=== PATIENT | male | born 1970 | race Caucasian/White ===

== ENCOUNTER 2024-02-26 13:35 | Inpatient (IN) | payer OTHER, SELFPAY ==
[2024-02-26] VITALS (11 sets, daily range): BP systolic 84–124; BP diastolic 66–82; BMI 31.4
--- NOTE | 2024-02-26 09:22 | W.PN.CARDCBS ---
Today's Communication / Plan
-
LHC
Echo if not done at [facility]
Impression / Plan
-
This is the H&P summary.
Full H&P scanned into chart.
PCP: Marli Mojica MD
CDY: Blane Stewart MD
HPI: 53 y/o white male, PMH sig for moderate ischemic cardiomyopathy after late presentation [place] (he refused care at first) and ultimately needed LAD stent (06/2022), prior RCA stenting in 2021. He has been feeling well until Sun 02/24, when he woke up
with chest pain and was intermittent throughout the day. Worse with any activity. Eventually agreed to come to ER and ECG was fine but enzymes showed acute NSTEMI pattern. He is taking aspirin and Plavix. IV and oral nitrates are giving him a
headache. No recent illness or other changes. On insulin and struggles with glucose control. Chest pain free overnight.
Peak HS troponin 642 with peak CK 334/MB 36.
Echo 09/19/23- moderate LV systolic dysfunction, EF 35-40%, mod CLVH, apical DK, inferior/anterior/entire inf septum, mid/ap ant septum and apical lateral segment are HK.
IMPRESSION:
NSTEMI
CAD
Late presentation NSTEMI w/prox LAD PCI (07/13/22)
Prior RCA PCI (2021)
Ischemic Cardiomyopathy
Chronic systolic HFrEF, 35-40%
HTN
HLD
DM, poorly controlled
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
Peripheral neuropathy.
Non alcoholic fatty liver disease (NAFLD).
Chronic LFT elevation.
Medication noncompliance.
PLAN:
Admit IVU
LHC today
plan pending results
on DAPT already- asa/plavix with doses given this morning
continue statin therapy w/rosuvastatin 40/d
repeat echo if not done at [facility]
Continue GDMT as sherman for HF-
jardiance 25/d, lisinopril 2.5/d, metoprolol xl 25/d, spironolactone 25/d
given lasix 20mg/d on 02/24 and 02/25
DM- poorly controlled w/peripheral neuropathy/R toe amputation, recent HgbA1C 8.6%
continue insulins, metformin
Monitor lytes, LFTs
Cardiac rehab consult
Followup w/Dr. Stewart at d/c
Progress Note - Dinkey Press Operator
Subjective
Date of Service: February 26, 2024
[2024-02-26 12:14] LABS: Glucose - Point of Care 126 mg/dl (70-99)
[2024-02-26] MEDS: NSS 298 ML IV (12:15)
[2024-02-26 13:11] LABS: ACT-LR - POC 234 Seconds (116-155)
--- NOTE | 2024-02-26 13:49 | ITS.CL.CATH ---
Carbon Sequestration Plant Operator - Catheterization
Cardiac Catheterization
Procedure Report:
LEFT HEART CATHETERIZATION
Date of Procedure: February 26, 2024
Procedures performed:
1: Coronary angiography
2: Left ventriculography
Primary Care Physician: Dr. Marli Mojica
Primary Emergency Manager: Dr. Blane Stewart
INDICATION: The patient is a 53-year-old man with a past medical history significant for insulin-dependent diabetes, hypertension, and coronary artery disease status post RCA and LAD stenting who presents with unstable angina and ruled in for a
small non-STEMI.
ACCESS: The patient was prepped and draped in usual sterile fashion. A 6 Occitan sheath was placed in the right radial artery using the Seldinger over the wire technique.
HEMODYNAMIC FINDINGS (mmHg):
LV(s/d,EDP): 96/11, 13
Ao(s/d,m): 96/68, 80
ANGIOGRAPHIC FINDINGS:
Single-plane Left Ventriculography in PATTERSON Projection: Mild to moderate anterolateral hypokinesis. Moderate diaphragmatic hypokinesis with mild inferoapical hypokinesis. No significant mitral regurgitation. Overall moderate LV systolic dysfunction
with a visually estimated ejection fraction of 40%.
Coronary Angiography:
Dominance: Right
Left Main: Normal
Left Anterior Descending: The left anterior descending artery is a large-caliber vessel that has a widely patent proximal to mid LAD stent. There is a ulcerated 95% ostial stenosis just proximal to the leading edge of the previously placed proximal
stent. The stent jails to medium to large caliber diagonal branches which appear widely patent with moderate ostial disease and normal distal flow. The distal LAD has JEANIE-3 flow and appears to be a good surgical target.
Ramus Intermedius: Relatively large caliber ramus intermedius branch that gives rise to 2 major vessels that have mild nonobstructive disease with normal flow. The lateral distal branch has a smooth mid 50% stenosis which appears unchanged from
prior angiography.
Left Circumflex: The left circumflex is a small nondominant system that gives rise to 2 very small obtuse marginal branches that are patent but supply a limited vascular area.
Right Coronary: The right coronary artery is a large-caliber dominant vessel that has moderate luminal irregularities in the AV groove. There is a widely patent previously placed mid RCA stent with no significant in-stent restenosis. The distal
right coronary artery gives rise to a medium caliber posterior descending artery and 3 medium caliber posterior left ventricular branches. The posterior descending artery has a smooth ostial/proximal 80% stenosis with a smooth mid diffuse 50-60%
stenosis. There is a smooth 60% stenosis in the ostium of the PLV branch system. The 2 distal vessels appear to be good surgical targets. All vessels have normal flow. The bifurcation disease has progressed when compared to prior angiography.
Fluoroscopy Time (min): 2.8
Radiation Dose (mGy): 503
DAP (Gy.cm2): 44
Closure device: None. A TR band was applied for hemostasis at the right wrist.
Complications: None.
ASSESSMENT:
1: Multivessel obstructive disease involving distal RCA bifurcation disease and the culprit true ostial LAD as described above.
2: Moderate LV systolic dysfunction with normal left regular filling pressures and no significant mitral gravitation.
CONCLUSIONS and RECOMMENDATIONS:
1: Formal CT surgical consult. Will stop Plavix in anticipation for bypass.
Rogerio Moreno M.D.
Copy to: Dr. Marli Mojica
[2024-02-26 14:48] LABS: Hematocrit 45.2 % (39.0-52.0); Mean Corp Hgb Conc. 35.4 g/dL (33.0-37.0); Mean Corpuscular Hgb 30.2 pg (27.0-31.0); Mean Corpuscular Volume 85.4 fL (80.0-94.0); Mean Platelet Volume 9.8 fL (7.4-10.4); Platelet Count 198 10^3/uL (130-400); Red Blood Cell Count 5.29 10^6/uL (4.70-6.10); Red Cell Dist. Width 12.4 % (11.5-14.5); White Blood Cell Count 10.5 10^3/uL (4.8-10.8)
[2024-02-26 15:01] LABS: APTT 127.1 Sec (23.4-35.0)
[2024-02-26] MEDS: CRESTOR 40 MG PO (17:24)
[2024-02-26] MEDS: HEPARIN 25000 UNITS/250 ML IV (17:30)
[2024-02-26 17:44] LABS: Glucose - Point of Care 179 mg/dl (70-99)
--- NOTE | 2024-02-26 17:54 | PTCARENOTE ---
Pt received post cath at 1335. Pt denies any chest pain or sob. Right rad band intact and site WNL. IV heparin started as ordered at 1730. Pt oob to the BR and the chair, no c/o offered.
[2024-02-26] MEDS: NOVOLOG FLEXPEN-MODERATE RESISTANCE 1 UNITS SC (17:59)
[2024-02-26] MEDS: NOVOLOG FLEXPEN 5 UNITS SC (18:01)
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
[2024-02-26 21:44] LABS: Glucose - Point of Care 173 mg/dl (70-99)
[2024-02-26] MEDS: LANTUS 0.18 UNITS SC (22:24)
[2024-02-27] VITALS (7 sets, daily range): BP systolic 106–132; BP diastolic 81–103
[2024-02-27 00:15] LABS: APTT 33.6 Sec (23.4-35.0)
--- NOTE | 2024-02-27 02:18 | PTCARENOTE ---
Tele remains SR w/ HR in the 80-100s at rest. Patient denies any chest pain or discomfort. Right radial site C/D/I. Patient educated on activity restrictions, and verbalized understanding. IV Heparin gtt currently infusing at 12ml/hr, next PTT due
at 06:20. Patient aware of POC, and can make needs known. Call beltran within reach.
[2024-02-27 06:44] LABS: INR 1.01; PT 13.1 Sec (11.4-14.6)
[2024-02-27 06:45] LABS: APTT 40.8 Sec (23.4-35.0)
[2024-02-27 06:46] LABS: Hemoglobin 15.4 g/dL (13.0-18.0); Mean Corpuscular Hgb 29.1 pg (27.0-31.0); Platelet Count 201 10^3/uL (130-400); Red Cell Dist. Width 12.2 % (11.5-14.5); White Blood Cell Count 11.3 10^3/uL (4.8-10.8)
[2024-02-27 06:58] LABS: ALT (SGPT) 33 U/L (0-50); AST (SGOT) 28 U/L (17-59); Albumin 4.2 g/dl (3.5-5.0); Alkaline Phosphatase 72 U/L (38-126); Blood Urea Nitrogen 24 mg/dl (9-20); Carbon Dioxide 21 mmol/L (22-30); Chloride 101 mmol/L (98-107); Direct Bilirubin 0.2 mg/dl (0.0-0.4); Estimated Creatinine Clearance 100 ml/min; Glucose 142 mg/dl (70-99); HDL Cholesterol 41 mg/dl; LDL Cholesterol, Calculated 72 mg/dl; Potassium 4.5 mmol/L (3.5-5.1); Sodium 138 mmol/L (135-145); Total Bilirubin 1.3 mg/dl (0.2-1.3); Total Cholesterol 158 mg/dl (50-199); Triglyceride 226 mg/dl (10-149); Very Low Density Lipoprotein 45 mg/dl (0-30); eGFR > 60.00
[2024-02-27 07:05] LABS: Glucose - Point of Care 133 mg/dl (70-99)
[2024-02-27] MEDS: FARXIGA 10 MG PO (08:01)
[2024-02-27] MEDS: ZESTRIL 2.5 MG PO (08:01)
[2024-02-27] MEDS: TOPROL XL 25 MG PO (08:01)
[2024-02-27] MEDS: ASPIR LOW (ENTERIC COATED) 81 MG PO (08:01)
[2024-02-27] MEDS: ALDACTONE 25 MG PO (08:01)
[2024-02-27] MEDS: NOVOLOG FLEXPEN-MODERATE RESISTANCE SC (08:02)
[2024-02-27] MEDS: NOVOLOG FLEXPEN 5 UNITS SC ×3 (08:03→17:46)
[2024-02-27 09:06] LABS: Glycohemoglobin (HgbA1c) 8.3 % (4.0-5.6)
--- NOTE | 2024-02-27 10:43 | W.PN.CARDCBS ---
Addendum entered and electronically signed by Garry Yoon MD 02/27/24 16:31:
I saw and examined the patient.
The Mother Helper's note was reviewed and I agree with the note.
Comment: Briefly, 53-year-old man past medical history of ischemic cardiomyopathy with EF 40%, prior MIs requiring PCI (LAD 2021 and RCA 2022) who presented to [facility] with chest discomfort and found to have elevated high-sensitivity
troponin consistent with NSTEMI. He was transferred to [place] and underwent invasive coronary angiography and found to have multivessel CAD.
Currently resting comfortably and is chest pain-free
Continue aspirin, beta-swati, lisinopril, spironolactone, SGLT2, high intensity statin
Maintained on heparin drip
Plavix on hold for washout
Ongoing CT surgery evaluation, appreciate their input
Original Note:
Today's Communication / Plan
-
CABG evaluation underway
Plavix washout
Continue IV heparin, aspirin
Continue Toprol, lisinopril, spironolactone, farxiga (in place of OP jardiance), crestor
Diabetic COUNSELOR AT [employer] consult
Impression / Plan
-
This is the H&P summary.
Full H&P scanned into chart.
PCP: Marli Mojica MD
CDY: Blane Stewart MD
HPI: 53 y/o white male, PMH sig for moderate ischemic cardiomyopathy after late presentation [place] (he refused care at first) and ultimately needed LAD stent (06/2022), prior RCA stenting in 2021. He has been feeling well until Sun 02/24, when he woke up
with chest pain and was intermittent throughout the day. Worse with any activity. Eventually agreed to come to ER and ECG was fine but enzymes showed acute NSTEMI pattern. He is taking aspirin and Plavix. IV and oral nitrates are giving him a
headache. No recent illness or other changes. On insulin and struggles with glucose control. Chest pain free overnight.
Peak HS troponin 642 with peak CK 334/MB 36.
Echo 09/19/23- moderate LV systolic dysfunction, EF 35-40%, mod CLVH, apical DK, inferior/anterior/entire inf septum, mid/ap ant septum and apical lateral segment are HK.
IMPRESSION:
NSTEMI
CAD
Late presentation NSTEMI w/prox LAD PCI (07/13/22)
Prior RCA PCI (2021)
Ischemic Cardiomyopathy
Chronic systolic HFrEF, 35-40%
HTN
HLD
DM, poorly controlled
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
Peripheral neuropathy.
Non alcoholic fatty liver disease (NAFLD).
Chronic LFT elevation.
Medication noncompliance.
PLAN:
-He presented to [place] as NSTEMI. Was transferred to [facility] for cardiac catheterization yesterday which showed multivessel obstructive disease
-CT surgical evaluation underway
-Chest pain-free. Right wrist site clean dry and intact
-Continue aspirin, IV heparin. Awaiting Plavix washout, likely for CABG next week
-Continue Toprol, lisinopril, Aldactone, Farxiga (on jardiance as OP)
-Was given 20 mg of po Lasix on 02/24 and 02/25 at [facility]. LVEDP at time of cath was 13 so hold off on additional diuretic at this time and follow volume status
-echo at [facility] with ~ stable EF
-LDL 72. Continue Crestor
-Hemoglobin A1c 8.3%. diabetic COUNSELOR AT [employer] consult
-Cardiac rehab consult
-Followup w/ Dr. Stewart at d/c
Progress Note - Trailhead Maintenance Worker
Subjective
Date of Service: February 27, 2024
No chest pain overnight
Objective
Labs:
02/27/24 06:17
02/27/24 06:17
Labs
Hgb 15.4 g/dL (13.0-18.0) 02/27/24 06:17
Hct 44.0 % (39.0-52.0) 02/27/24 06:17
Plt Count 201 10^3/uL (130-400) 02/27/24 06:17
PT 13.1 Sec (11.4-14.6) 02/27/24 06:17
INR 1.01 02/27/24 06:17
APTT 40.8 Sec (23.4-35.0) H 02/27/24 06:17
Sodium 138 mmol/L (135-145) 02/27/24 06:17
Potassium 4.5 mmol/L (3.5-5.1) 02/27/24 06:17
BUN 24 mg/dl (9-20) H 02/27/24 06:17
Creatinine 1.0 mg/dL (0.7-1.3) 02/27/24 06:17
Glucose 142 mg/dl (70-99) H 02/27/24 06:17
Vital Signs and I&O:
Vital Signs
Temp Pulse Resp BP Pulse Ox
97.8 F 89 18 106/83 96
02/27/24 06:56 02/27/24 06:58 02/27/24 06:56 02/27/24 06:58 02/27/24 06:56
Vital Signs
Temp Pulse Resp BP Pulse Ox
97.8 F 89 18 106/83 96
02/27/24 06:56 02/27/24 06:58 02/27/24 06:56 02/27/24 06:58 02/27/24 06:56
Intake & Output
02/25/24 02/26/24 02/27/24 02/28/24
07:59 07:59 07:59 07:59
Intake Total 794 / 1274 480 / 480
Output Total 400 / 400
Balance 394 / 874 480 / 480
Physical Exam
Physical Exam
GEN: No distress, awake, alert, oriented x3
HEENT: supple, anicteric, mmm, EOMI
LUNGS: CTA bilaterally, no wheezes/rales
CV: Reg, S1/S2, no murmur
ABD: soft, BS+, NT/ND
EXT: No cyanosis, clubbing, edema
NEURO: Gross non-focal
SKIN: Warm, pink, dry. No rash. Right wrist site clean dry and intact
[2024-02-27 12:27] LABS: Glucose - Point of Care 156 mg/dl (70-99)
--- NOTE | 2024-02-27 13:13 | PN.DE.MGMTRT ---
Insulin Management
- -
02/27/2024: Diabetes Management Consult
53 year old male known to diabetes team from previous admission, presented to the ED with chest pain, noted for NSTEMI.
PMH: HTN, ICM, CAD s/p PCI, HLD, NAFLD, Chronic LFT elevation, T2DM. On insulin and struggles with glucose control. A1C 8.3%, was 11.0% in 06/2022, Cr 1.0
Chart reviewed, Glucose well controlled on current regimen: Lantus 18 units @ hs with NovoLog 5 units AC and Farxiga 10 mg daily. Metformin on hold post cath.
Glucose range 126 to 179, requiring only 1 additional unit of corrective insulin @ dinner time yesterday.
Will make no changes to regimen. Cont Metformin 500mg BID, Jardiance 25 mg daily, NovoLog 5 units AC, Lantus 15 units @ HS and moderate corrective insulin
Pt does not need monitor and insulin instructions, not new dx, already has a meter at home and not new to insulin.
Will followup and see pt tomorrow
Diabetes History
- -
Type of Diabetes: 2 requiring insulin
Pre-Admission Diabetes Regimen
02/27/24
06:17
Creatinine 1.0
Lab Results
Hemoglobin A1c 8.3 % (4.0-5.6) H 02/27/24 06:17
Insulin Pump Settings
IP Diabetes Regimen
02/26/24 02/26/24 02/27/24
17:43 21:42 06:17
Glucose 142 H
POC Glucose 179 H 173 H
02/27/24 02/27/24
07:04 12:26
Glucose
POC Glucose 133 H 156 H
Meal type: Breakfast
Amount consumed: 100%
Patient Education
[2024-02-27 13:27] LABS: APTT 41.9 Sec (23.4-35.0)
[2024-02-27] MEDS: NOVOLOG FLEXPEN-MODERATE RESISTANCE 1 UNITS SC (13:28)
[2024-02-27] MEDS: HEPARIN 25000 UNITS/250 ML IV (13:45)
[2024-02-27] MEDS: NOVOLOG FLEXPEN-MODERATE RESISTANCE 3 UNITS SC (17:45)
[2024-02-27 17:46] LABS: Glucose - Point of Care 202 mg/dl (70-99)
[2024-02-27] MEDS: CRESTOR 40 MG PO (17:47)
--- NOTE | 2024-02-27 18:39 | CM ---
spoke to pt in room, he is prev indep, lives in a mobile home with 2 steps to enter. he denies any dme's. plan is uncertain at this time ct surgery vs pci/stent. cm to follow. pt has NO perscript plan, he pays [facility] for meds.
[2024-02-27 20:51] LABS: APTT 57.2 Sec (23.4-35.0)
[2024-02-27 22:34] LABS: Glucose - Point of Care 212 mg/dl (70-99)
[2024-02-27] MEDS: LANTUS 0.18 UNITS SC (22:34)
--- NOTE | 2024-02-27 23:15 | PTCARENOTE ---
Heparin gtt infusing at 1700 units/hr. Pt has no c/o pain/discomfort at this time. Pt has been ambulatory around room w/ steady gait. Tele-SR. HR 80-90s. Pt is currently in bed; call devin w/in reach.
[2024-02-28 03:31] VITALS: BP 115/80
[2024-02-28 03:53] LABS: Hematocrit 41.4 % (39.0-52.0); Hemoglobin 14.9 g/dL (13.0-18.0); Mean Corpuscular Hgb 29.3 pg (27.0-31.0); Mean Corpuscular Volume 81.5 fL (80.0-94.0); Mean Platelet Volume 9.9 fL (7.4-10.4); Platelet Count 210 10^3/uL (130-400); Red Blood Cell Count 5.08 10^6/uL (4.70-6.10); Red Cell Dist. Width 12.1 % (11.5-14.5); White Blood Cell Count 8.5 10^3/uL (4.8-10.8)
[2024-02-28 03:57] LABS: APTT 80.5 Sec (23.4-35.0)
[2024-02-28 04:16] LABS: ALT (SGPT) 29 U/L (0-50); AST (SGOT) 28 U/L (17-59); Albumin 4.2 g/dl (3.5-5.0); Alkaline Phosphatase 68 U/L (38-126); Blood Urea Nitrogen 29 mg/dl (9-20); Calcium 8.8 mg/dl (8.4-10.2); Carbon Dioxide 19 mmol/L (22-30); Chloride 103 mmol/L (98-107); Estimated Creatinine Clearance 100 ml/min; Glucose 142 mg/dl (70-99); Potassium 4.3 mmol/L (3.5-5.1); Sodium 139 mmol/L (135-145); Total Bilirubin 0.7 mg/dl (0.2-1.3); Total Protein 6.9 g/dl (6.3-8.2); eGFR > 60.00
[2024-02-28] MEDS: HEPARIN 25000 UNITS/250 ML IV ×2 (05:48→21:18)
[2024-02-28 08:21] VITALS: BP 115/95
[2024-02-28 08:24] LABS: Glucose - Point of Care 138 mg/dl (70-99)
--- NOTE | 2024-02-28 08:34 | PN.DE.MGMTRT ---
Insulin Management
- -
02/28/2024: Diabetes Management Consult Follow up
Patient presented to the ED with chest pain, NSTEMI, known to diabetes team from previous admission,
PMH: HTN, ICM, CAD s/p PCI, HLD, NAFLD, Chronic LFT elevation, T2DM. On insulin and struggles with glucose control. A1C 8.3%, Cr 1.0, eGFR >60. Prior to admission was taking Farxiga 25 mg daily, metformin 500 mg BID with lantus 18 units @ HS and
novolog 5 units AC.
Patient is awake alert and oriented sitting at side of bed, able to discuss diabetes regimen. He states he has had diabetes ~ 5 years and his primary doctor cares for his diabetes. 02/26 Patient received home regimen, lantus 18 @ HS with novolog 5
units AC and farxiga 25 mg. Glucose range 133 to 212, requiring corrective insulin. Will increase AC novolog to 7 units and continue 18 units lantus @ hs, will decrease moderate to low corrective insulin, continue Farxiga 25 mg daily at this time.
Will stop Farxiga closer to surgical date. Patient having workup for CABG
Diabetes History
- -
Type of Diabetes: 2 requiring insulin
Pre-Admission Diabetes Regimen
02/28/24
03:35
Creatinine 1.0
Lab Results
Hemoglobin A1c 8.3 % (4.0-5.6) H 02/27/24 06:17
Insulin Pump Settings
IP Diabetes Regimen
02/27/24 02/27/24 02/27/24
12:26 17:45 22:33
Glucose
POC Glucose 156 H 202 H 212 H
02/28/24 02/28/24
03:35 08:23
Glucose 142 H
POC Glucose 138 H
Meal type: Dinner
Meal type: Lunch
Amount consumed: 100%
Amount consumed: 50%
Patient Education
[2024-02-28] MEDS: ALDACTONE 25 MG PO (09:32)
[2024-02-28] MEDS: ASPIR LOW (ENTERIC COATED) 81 MG PO (09:32)
[2024-02-28] MEDS: NOVOLOG FLEXPEN-MODERATE RESISTANCE SC (09:33)
[2024-02-28] MEDS: TOPROL XL 25 MG PO (09:33)
[2024-02-28] MEDS: FARXIGA 10 MG PO (09:33)
[2024-02-28] MEDS: ZESTRIL 2.5 MG PO (09:33)
[2024-02-28] MEDS: NOVOLOG FLEXPEN 7 UNITS SC ×3 (09:36→17:39)
[2024-02-28] MEDS: NOVOLOG FLEXPEN SC (10:06)
--- NOTE | 2024-02-28 10:32 | W.PN.CARDCBS ---
Addendum entered and electronically signed by Kyleigh Oliveira DO 02/29/24 00:28:
I saw and examined the patient.
The Business Office Assistant's note was reviewed and I agree with the note.
Comment: Late entry. Seen and examined. Offers no complaints but is requesting to shower. No CP/SOB
GEN: No distress, awake, alert, oriented x3
HEENT: mmm
LUNGS: CTA B/L, no wheezes/rales
CV: Reg, S1/S2, no murmur
ABD: soft, BS+, NT/ND
EXT: No edema. R wrist site c/d/i
Plan:
NSTEMI with known ischemic cardiomyopathy with EF 40%, prior MIs requiring PCI (LAD 2021 and RCA 2022) with mCAD for CABG evaluation
-remains chest pain-free.
-Right wrist site clean dry and intact
-Continue aspirin, IV heparin.
- Awaiting Plavix washout, planned for CABG next week
-Continue Toprol, lisinopril, Aldactone, Farxiga (listed as being on jardiance as OP) given ICM
-Appears euvolemic- no further lasix
-echo at [facility] with ~ stable EF
-LDL 72. Continue Crestor
-Hemoglobin A1c 8.3%. needs improved control, d/w diabetic TANK PROCESSOR
-Followup w/ Dr. Stewart at d/c
Original Note:
Today's Communication / Plan
-
awaiting CABG
chest pain free
appreciate diabetic mgmt
consider increasing toprol as BP allows
Impression / Plan
-
This is the H&P summary.
Full H&P scanned into chart.
PCP: Marli Mojica MD
CDY: Blane Stewart MD
HPI: 53 y/o white male, PMH sig for moderate ischemic cardiomyopathy after late presentation [place] (he refused care at first) and ultimately needed LAD stent (06/2022), prior RCA stenting in 2021. He has been feeling well until Sun 02/24, when he woke up
with chest pain and was intermittent throughout the day. Worse with any activity. Eventually agreed to come to ER and ECG was fine but enzymes showed acute NSTEMI pattern. He is taking aspirin and Plavix. IV and oral nitrates are giving him a
headache. No recent illness or other changes. On insulin and struggles with glucose control. Chest pain free overnight.
Peak HS troponin 642 with peak CK 334/MB 36.
Echo 09/19/23- moderate LV systolic dysfunction, EF 35-40%, mod CLVH, apical DK, inferior/anterior/entire inf septum, mid/ap ant septum and apical lateral segment are HK.
IMPRESSION:
NSTEMI
MV CAD
Late presentation NSTEMI w/prox LAD PCI (07/13/22)
Prior RCA PCI (2021)
Ischemic Cardiomyopathy, EF 35-40%
Chronic systolic HFrEF
HTN
HLD
DM, poorly controlled
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
Peripheral neuropathy
Non alcoholic fatty liver disease (NAFLD).
Chronic LFT elevation
Medication noncompliance
PLAN:
-He presented to [place] as NSTEMI. Was transferred to [facility] for cardiac catheterization which showed multivessel obstructive disease
-CT surgical evaluation underway
-remains chest pain-free. Right wrist site clean dry and intact
-Continue aspirin, IV heparin. Awaiting Plavix washout, planned for CABG next week
-Continue Toprol, lisinopril, Aldactone, Farxiga (listed as being on jardiance as OP) given ICM
-consider increasing toprol dose to 25mg BID given ST noted on tele overnight
-Was given 20 mg of po Lasix on 02/24 and 02/25 at [facility]. LVEDP at time of cath was 13 so hold off on additional diuretic at this time
-echo at [facility] with ~ stable EF
-LDL 72. Continue Crestor
-Hemoglobin A1c 8.3%. needs improved control, d/w diabetic TANK PROCESSOR
-Cardiac rehab consult
-Followup w/ Dr. Stewart at d/c
-d/w nursing
Progress Note - Dental Laboratory Technician Apprentice
Subjective
Date of Service: February 28, 2024
no issues overnight
Objective
Labs:
02/28/24 03:35
02/28/24 03:35
Labs
Hgb 14.9 g/dL (13.0-18.0) 02/28/24 03:35
Hct 41.4 % (39.0-52.0) 02/28/24 03:35
Plt Count 210 10^3/uL (130-400) 02/28/24 03:35
PT 13.1 Sec (11.4-14.6) 02/27/24 06:17
INR 1.01 02/27/24 06:17
APTT 62.0 Sec (23.4-35.0) H 02/28/24 09:31
Sodium 139 mmol/L (135-145) 02/28/24 03:35
Potassium 4.3 mmol/L (3.5-5.1) 02/28/24 03:35
BUN 29 mg/dl (9-20) H 02/28/24 03:35
Creatinine 1.0 mg/dL (0.7-1.3) 02/28/24 03:35
Glucose 142 mg/dl (70-99) H 02/28/24 03:35
Vital Signs and I&O:
Vital Signs
Temp Pulse Resp BP Pulse Ox
98.6 F 102 20 115/95 93
02/28/24 08:18 02/28/24 08:21 02/28/24 08:18 02/28/24 08:21 02/28/24 08:18
Vital Signs
Temp Pulse Resp BP Pulse Ox
98.6 F 102 20 115/95 93
02/28/24 08:18 02/28/24 08:21 02/28/24 08:18 02/28/24 08:21 02/28/24 08:18
Intake & Output
02/26/24 02/27/24 02/28/24 02/29/24
07:59 07:59 07:59 07:59
Intake Total 794 / 1274 960 / 960
Output Total 400 / 400
Balance 394 / 874 960 / 960
Physical Exam
Physical Exam
GEN: No distress, awake, alert, oriented x3
HEENT: supple, anicteric, mmm, eomi
LUNGS: CTA B/L, no wheezes/rales
CV: Reg, S1/S2, no murmur
ABD: soft, BS+, NT/ND
EXT: No cyanosis, clubbing, edema
NEURO: Gross non-focal
SKIN: Warm, pink, dry. No rash. R wrist site c/d/i
--- NOTE | 2024-02-28 10:42 | PTCARENOTE ---
Received patient this morning resting in bed. Pre meal insulin increased by diabetes AMMUNITION ASSEMBLY LABORER. IV heparin infusing and adjusted according to protocol. Patient denies any chest pain or sob.
[2024-02-28 11:24] VITALS: BP 134/79
[2024-02-28 13:03] LABS: Glucose - Point of Care 275 mg/dl (70-99)
[2024-02-28] MEDS: NOVOLOG FLEXPEN-MODERATE RESISTANCE 5 UNITS SC (13:12)
--- NOTE | 2024-02-28 13:36 | W.PN.UPDATE ---
Update Note
Progress Note Update
Spoke with patient, he is ambulating around the unit without chest pain. He is awaiting plavix washout prior to CABG. Dr. Cazares will meet with patient on Monday to discuss CABG timing for early next week (last dose plavix 02/25). Continue heparin
for NSTEMI. All preoperative studies have been completed, no red flags.
Procedure Type:�Isolated CABG
PERIOPERATIVE OUTCOME ESTIMATE %
Operative Mortality 0.734%
Morbidity & Mortality 5.17%
Stroke 0.875%
Renal Failure 0.782%
Reoperation 1.66%
Prolonged Ventilation 2.51%
Deep Sternal Wound Infection 0.303%
Long Hospital Stay (>14 days) 2.67%
Short Hospital Stay (<6 days)* 61.9%
Clinical Summary
Planned Surgery: Isolated CABG, Urgent, First cardiovascular surgery
Demographics: 53 year old, male, 99.3kg, 178cm, BMI: 31.3 kg/m�
Lab Values: Creatinine: 1 mg/dL, Hematocrit: 41.4%, WBC Count: 8.5 10�/�L, Platelet Count: 931165 cells/�L
PreOp Medications: Insulin diabetes control
Substance Abuse: Never smoker
Risk Factors / Comorbidities: Insulin-dependent Diabetes Mellitus, Hypertension
Cardiac Status: Chronic heart failure, NYHA Class I, Ejection Fraction = 38%
Coronary Artery Disease: 2 vessels diseased, Proximal LAD Stenosis >=70%, Non-ST Elevation WI, WI: 1 to 7 Days
Valve Disease: Trivial/Trace MR, Trivial/Trace TR
--- NOTE | 2024-02-28 15:21 | CM ---
CM following for DC planning needs.
Awaiting CT Surgery plan. CM will meet with pt. to complete pre-op teaching once identified.
Reviewed initial assessment. Pt. resides with spouse in a private home. He is functionally indep. at baseline w/ ADLs, mobility without the use of any assisted device.
CM to follow for DC planning needs.
[2024-02-28 15:45] VITALS: BP 122/71
[2024-02-28 17:11] LABS: APTT 73.7 Sec (23.4-35.0)
[2024-02-28 17:38] LABS: Glucose - Point of Care 190 mg/dl (70-99)
[2024-02-28] MEDS: NOVOLOG FLEXPEN-MODERATE RESISTANCE 1 UNITS SC (17:39)
[2024-02-28] MEDS: CRESTOR 40 MG PO (17:48)
[2024-02-28 18:32] VITALS: BP 131/89
--- NOTE | 2024-02-28 21:48 | PTCARENOTE ---
Received pt at handoff. AOX3 and pleasant. Tele- SR. HR 90s. Assessment completed as documented. Heparin gtt infusing at 1900 units/hr. Pt has no c/o pain/discomfort at this time. Currently in bed; call devin w/in reach.
[2024-02-28 22:12] VITALS: BP 116/85
[2024-02-28 22:15] LABS: Glucose - Point of Care 209 mg/dl (70-99)
[2024-02-28] MEDS: LANTUS 0.18 UNITS SC (22:39)
[2024-02-28 23:15] LABS: APTT 69.8 Sec (23.4-35.0)
[2024-02-29] VITALS (7 sets, daily range): BP systolic 112–141; BP diastolic 78–122
[2024-02-29 05:35] LABS: Hematocrit 42.9 % (39.0-52.0); Hemoglobin 15.2 g/dL (13.0-18.0); Mean Corp Hgb Conc. 35.4 g/dL (33.0-37.0); Mean Corpuscular Volume 84.6 fL (80.0-94.0); Mean Platelet Volume 9.6 fL (7.4-10.4); Platelet Count 193 10^3/uL (130-400); Red Blood Cell Count 5.07 10^6/uL (4.70-6.10); Red Cell Dist. Width 12.2 % (11.5-14.5)
[2024-02-29 05:54] LABS: APTT 102.9 Sec (23.4-35.0)
[2024-02-29 06:02] LABS: ALT (SGPT) 30 U/L (0-50); AST (SGOT) 27 U/L (17-59); Albumin 4.2 g/dl (3.5-5.0); Alkaline Phosphatase 65 U/L (38-126); Blood Urea Nitrogen 28 mg/dl (9-20); Calcium 8.8 mg/dl (8.4-10.2); Carbon Dioxide 19 mmol/L (22-30); Chloride 104 mmol/L (98-107); Estimated Creatinine Clearance 100 ml/min; Glucose 159 mg/dl (70-99); Potassium 4.6 mmol/L (3.5-5.1); Sodium 138 mmol/L (135-145); Total Bilirubin 0.7 mg/dl (0.2-1.3); eGFR > 60.00
[2024-02-29 07:40] LABS: Glucose - Point of Care 204 mg/dl (70-99)
[2024-02-29] MEDS: NOVOLOG FLEXPEN 7 UNITS SC (07:50)
[2024-02-29] MEDS: NOVOLOG FLEXPEN-MODERATE RESISTANCE 3 UNITS SC (07:50)
[2024-02-29] MEDS: FLUSH (NSS) 1 FLUSH IV (07:51)
[2024-02-29] MEDS: ZESTRIL 2.5 MG PO (07:52)
[2024-02-29] MEDS: ASPIR LOW (ENTERIC COATED) 81 MG PO (07:53)
[2024-02-29] MEDS: TOPROL XL 25 MG PO (07:53)
[2024-02-29] MEDS: ALDACTONE 25 MG PO (07:53)
[2024-02-29] MEDS: FARXIGA 10 MG PO (07:53)
--- NOTE | 2024-02-29 08:39 | PN.DE.MGMTRT ---
Insulin Management
- -
02/29/2024: Diabetes Management Consult Follow up
Patient presented to the ED with chest pain, NSTEMI, known to diabetes team from previous admission,
PMH: HTN, ICM, CAD s/p PCI, HLD, NAFLD, Chronic LFT elevation, T2DM. On insulin and struggles with glucose control. A1C 8.3%, Cr 1.0, eGFR >60. Prior to admission was taking Farxiga 25 mg daily, metformin 500 mg BID with lantus 18 units @ HS and
novolog 5 units AC.
Patient is awake alert and oriented sitting at side of bed, able to discuss diabetes regimen. He states he has had diabetes ~ 5 years and his primary doctor cares for his diabetes. 02/27 Received lantus 18 @ HS, fasting glucose 138, novolog 7 units
AC and farxiga 25 mg. Glucose pre lunch 275 pre dinner 190.
02/28 Cr 1, eGFR >60, Will increase AC novolog to 10 units with low corrective insulin and lantus @ hs to 22 units, continue Farxiga 25 mg daily at this time. Pre lunch glucose 140.
Will stop Farxiga closer to surgical date. Patient having workup for CABG
Diabetes History
- -
Type of Diabetes: 2 requiring insulin
Pre-Admission Diabetes Regimen
02/29/24
05:23
Creatinine 1.0
Lab Results
Hemoglobin A1c 8.3 % (4.0-5.6) H 02/27/24 06:17
Insulin Pump Settings
IP Diabetes Regimen
02/28/24 02/28/24 02/28/24
13:01 17:37 22:14
Glucose
POC Glucose 275 H 190 H 209 H
02/29/24 02/29/24
05:23 07:39
Glucose 159 H
POC Glucose 204 H
Meal type: Lunch
Meal type: Breakfast
Amount consumed: 100%
Amount consumed: 100%
Patient Education
--- NOTE | 2024-02-29 08:41 | W.PN.CARDCBS ---
Addendum entered and electronically signed by Garry Yoon MD 02/29/24 14:38:
I saw and examined the patient.
The Pitching Coach's note was reviewed and I agree with the note.
Comment: Briefly, 53-year-old man past medical history of ischemic cardiomyopathy with prior LAD and RCA PCI who presented with chest discomfort and presented to [place] emergency department where he was found to have elevated high-sensitivity
troponin consistent with NSTEMI. He was transferred to [place] and underwent invasive coronary angiography which revealed multivessel CAD. Tentative plan for CABG following Plavix washout.
Currently asymptomatic from cardiovascular standpoint
Resting comfortably in bed this morning, tells me is walking the halls without cardiovascular symptoms
For now, continue aspirin, high intensity statin, beta-swati and heparin drip as well as spironolactone and lisinopril
Tentative plan to resume Plavix prior to discharge and continue for at least 1 year
Original Note:
Today's Communication / Plan
-
awaiting CABG
Continue aspirin, IV heparin, crestor, Toprol, lisinopril, Aldactone, Farxiga
diabetic mgmt
Impression / Plan
-
This is the H&P summary.
Full H&P scanned into chart.
PCP: Marli Mojica MD
CDY: Blane Stewart MD
HPI: 53 y/o white male, PMH sig for moderate ischemic cardiomyopathy after late presentation [place] (he refused care at first) and ultimately needed LAD stent (06/2022), prior RCA stenting in 2021. He has been feeling well until Sun 02/24, when he woke up
with chest pain and was intermittent throughout the day. Worse with any activity. Eventually agreed to come to ER and ECG was fine but enzymes showed acute NSTEMI pattern. He is taking aspirin and Plavix. IV and oral nitrates are giving him a
headache. No recent illness or other changes. On insulin and struggles with glucose control. Chest pain free overnight.
Peak HS troponin 642 with peak CK 334/MB 36.
Echo 09/19/23- moderate LV systolic dysfunction, EF 35-40%, mod CLVH, apical DK, inferior/anterior/entire inf septum, mid/ap ant septum and apical lateral segment are HK.
IMPRESSION:
NSTEMI
MV CAD
Late presentation NSTEMI w/prox LAD PCI (07/13/22)
Prior RCA PCI (2021)
Ischemic Cardiomyopathy, EF 35-40%
Chronic systolic HFrEF
HTN
HLD
DM, poorly controlled
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
Peripheral neuropathy
Non alcoholic fatty liver disease (NAFLD).
Chronic LFT elevation
Medication noncompliance
PLAN:
-He presented to [place] as NSTEMI. Was transferred to [facility] for cardiac catheterization which showed multivessel obstructive disease
-Remains chest pain-free
-Awaiting timing of CABG as CT schedule permits, d/w CT surgical team. Plavix washout
-Continue aspirin, IV heparin, crestor, Toprol, lisinopril, Aldactone, Farxiga (listed as being on jardiance as OP) given ICM (EF by echo at [facility] stable at 35-40%)
-Sinus rhythm/sinus tach on review of telemetry overnight. Hesitant to increase Toprol further given relative hypotension
-follow volume status. was diuresed at [facility] prior to transfer. LVEDP by cath on arrival was 13. holding on further lasix
-Hemoglobin A1c 8.3%. needs improved control, appreciate diabetic PIPE LINE REPAIRER mgmt
-Followup w/ Dr. Stewart at d/c
Progress Note - Ignition Expert
Subjective
Date of Service: February 29, 2024
No issues overnight. No chest pain
Objective
Labs:
02/29/24 05:23
02/29/24 05:23
Labs
Hgb 15.2 g/dL (13.0-18.0) 02/29/24 05:23
Hct 42.9 % (39.0-52.0) 02/29/24 05:23
Plt Count 193 10^3/uL (130-400) 02/29/24 05:23
PT 13.1 Sec (11.4-14.6) 02/27/24 06:17
INR 1.01 02/27/24 06:17
APTT 102.9 Sec (23.4-35.0) H 02/29/24 05:23
Sodium 138 mmol/L (135-145) 02/29/24 05:23
Potassium 4.6 mmol/L (3.5-5.1) 02/29/24 05:23
BUN 28 mg/dl (9-20) H 02/29/24 05:23
Creatinine 1.0 mg/dL (0.7-1.3) 02/29/24 05:23
Glucose 159 mg/dl (70-99) H 02/29/24 05:23
Vital Signs and I&O:
Vital Signs
Temp Pulse Resp BP Pulse Ox
97.6 F 93 18 112/90 97
02/29/24 07:44 02/29/24 07:52 02/29/24 07:44 02/29/24 07:52 02/29/24 07:44
Vital Signs
Temp Pulse Resp BP Pulse Ox
97.6 F 93 18 112/90 97
02/29/24 07:44 02/29/24 07:52 02/29/24 07:44 02/29/24 07:52 02/29/24 07:44
Intake & Output
02/27/24 02/28/24 02/29/24 03/01/24
07:59 07:59 07:59 07:59
Intake Total 794 / 1274 960 / 960 760 / 760
Output Total 400 / 400
Balance 394 / 874 960 / 960 760 / 760
Physical Exam
Physical Exam
GEN: No distress, awake, alert, oriented x3
HEENT: supple, anicteric, mmm, eomi
LUNGS: CTA B/L, no wheezes/rales
CV: Reg, S1/S2, no murmur
ABD: soft, BS+, NT/ND
EXT: No cyanosis, clubbing, edema
NEURO: Gross non-focal
SKIN: Warm, pink, dry. No rash. R wrist site c/d/i
--- NOTE | 2024-02-29 08:43 | PTCARENOTE ---
Received patient at shift change in chair. SR on the Heparin running at 1999. R radial site MILL SUPERVISOR, intact. No complaints from pt at this time, call beltran within reach.
[2024-02-29] MEDS: HEPARIN 25000 UNITS/250 ML IV ×2 (09:03→22:24)
[2024-02-29 12:08] LABS: APTT 91.4 Sec (23.4-35.0)
[2024-02-29 12:50] LABS: Glucose - Point of Care 143 mg/dl (70-99)
--- NOTE | 2024-02-29 12:53 | CM ---
Reviewed chart . Met with Mr. Bautista to review discharge plans. He states prior to admission he resides with his spouse in a three story home with four step to enter. He states he has a full flight of steps to get to bedroom/full bathroom. He
states prior to admission he was independent with ambulation and adls. He states he does not have any DME in the home. He states he has a prescription plan. He states his spouse works outside the home for a few hours. He states his daughter and
son will also be available to assist in his care if needed. Awaiting CT Surgeon consult regarding surgery and timing of surgery. Medical work-up in progress. The discharge plan is to return home with his spouse and [facility] Services when medically
stable.
[2024-02-29] MEDS: NOVOLOG FLEXPEN-MODERATE RESISTANCE SC (12:55)
[2024-02-29] MEDS: NOVOLOG FLEXPEN 10 UNITS SC ×2 (12:59→17:38)
--- NOTE | 2024-02-29 15:36 | W.PN.UPDATE ---
Update Note
Progress Note Update
ed CABG
PERIOPERATIVE OUTCOME ESTIMATE %
Operative Mortality 1.02%
Morbidity & Mortality 6.82%
Stroke 0.971%
Renal Failure 0.877%
Reoperation 1.87%
Prolonged Ventilation 3.54%
Deep Sternal Wound Infection 0.343%
Long Hospital Stay (>14 days) 3.67%
Short Hospital Stay (<6 days)* 54%
*higher values reflect a better outcome
Clinical Summary
Planned Surgery: Isolated CABG, Urgent, First cardiovascular surgery
Demographics: 53 year old, White, male, 99kg, 178cm, BMI: 31.2 kg/m�
Insurance/Payor: Medicare
Lab Values: Creatinine: 1 mg/dL, Hematocrit: 42.9%, WBC Count: 9 10�/�L, Platelet Count: 597889 cells/�L
PreOp Medications: Insulin diabetes control
Substance Abuse: Never smoker
Risk Factors / Comorbidities: Insulin-dependent Diabetes Mellitus, Hypertension
Cardiac Status: Acute and chronic heart failure, Ejection Fraction = 40%
Coronary Artery Disease: 2 vessels diseased, Proximal LAD Stenosis >=70%, Non-ST Elevation SD, SD: 1 to 7 Days
Valve Disease: Trivial/Trace MR, Trivial/Trace TR
[2024-02-29 16:03] LABS: Glucose - Point of Care 175 mg/dl (70-99)
[2024-02-29] MEDS: NOVOLOG FLEXPEN-MODERATE RESISTANCE 1 UNITS SC (17:39)
[2024-02-29] MEDS: CRESTOR 40 MG PO (17:40)
[2024-02-29] MEDS: LANTUS 0.22 UNITS SC (22:23)
[2024-02-29 22:25] LABS: Glucose - Point of Care 193 mg/dl (70-99)
--- NOTE | 2024-02-29 22:45 | PTCARENOTE ---
Received pt at handoff. AOX3 and pleasant. Tele- SR. HR 90s. Assessment completed as documented. Heparin gtt infusing at 2000 units/hr. Pt has no c/o pain/discomfort at this time. Currently in bed; call devin w/in reach.
[2024-03-01] VITALS (7 sets, daily range): BP systolic 112–130; BP diastolic 75–94
[2024-03-01 03:47] LABS: Hematocrit 42.6 % (39.0-52.0); Hemoglobin 15.2 g/dL (13.0-18.0); Mean Corp Hgb Conc. 35.7 g/dL (33.0-37.0); Mean Corpuscular Hgb 29.5 pg (27.0-31.0); Mean Corpuscular Volume 82.6 fL (80.0-94.0); Mean Platelet Volume 9.9 fL (7.4-10.4); Platelet Count 231 10^3/uL (130-400); Red Blood Cell Count 5.16 10^6/uL (4.70-6.10); Red Cell Dist. Width 12.3 % (11.5-14.5); White Blood Cell Count 10.1 10^3/uL (4.8-10.8)
[2024-03-01 04:01] LABS: APTT 99.6 Sec (23.4-35.0)
--- NOTE | 2024-03-01 08:43 | PN.DE.MGMTRT ---
Insulin Management
- -
03/01/2024: Diabetes Management F/U:
Patient presented to the ED with chest pain, NSTEMI, known to diabetes team from previous admission,
PMH: HTN, ICM, CAD s/p PCI, HLD, NAFLD, Chronic LFT elevation, T2DM. On insulin and struggles with glucose control. A1C 8.3%, Cr 1.0, eGFR >60. Prior to admission was taking Farxiga 25 mg daily, metformin 500 mg BID with Lantus 18 units @ HS and
NovoLog 5 units AC. He states he has had diabetes ~ 5 years and his primary doctor cares for his diabetes.
Patient is awake alert and oriented sitting at side of bed, able to discuss diabetes regimen. Cr 1, eGFR >60,
02/28 Glucose pre lunch 143 pre dinner 175, HS 193. Received Lantus 22 @ HS, fasting glucose 166 this AM.
Will increase AC NovoLog to 10 units for optimal glucose control.
Will cont Lantus @ hs to 22 units, and low corrective insulin with meals
Patient having workup for CABG. Will stop Farxiga for now, as he get closer to surgical date.
Diabetes History
- -
Type of Diabetes: 2 requiring insulin
Pre-Admission Diabetes Regimen
Lab Results
Hemoglobin A1c 8.3 % (4.0-5.6) H 02/27/24 06:17
Insulin Pump Settings
IP Diabetes Regimen
02/29/24 02/29/24 02/29/24
12:49 16:00 22:22
POC Glucose 143 H 175 H 193 H
Meal type: Dinner
Amount consumed: 100%
Patient Education
[2024-03-01 08:59] LABS: Glucose - Point of Care 166 mg/dl (70-99)
[2024-03-01] MEDS: TOPROL XL 25 MG PO (09:05)
[2024-03-01] MEDS: ASPIR LOW (ENTERIC COATED) 81 MG PO (09:05)
[2024-03-01] MEDS: ALDACTONE 25 MG PO (09:05)
[2024-03-01] MEDS: ZESTRIL 2.5 MG PO (09:05)
[2024-03-01] MEDS: FARXIGA 10 MG PO (09:05)
--- NOTE | 2024-03-01 09:28 | PTCARENOTE ---
Received patient at change of shift. ST on the monitor. Heparin running into R forearm at 2000 units/hr. R radial site ROLANDO and intact. No complaints from pt at this time, pt ambulating in the hallway.
[2024-03-01] MEDS: NOVOLOG FLEXPEN 10 UNITS SC ×3 (10:09→17:37)
[2024-03-01] MEDS: NOVOLOG FLEXPEN-MODERATE RESISTANCE 1 UNITS SC (10:09)
[2024-03-01] MEDS: HEPARIN 25000 UNITS/250 ML IV ×2 (12:02→23:20)
--- NOTE | 2024-03-01 13:54 | W.PN.CARDCBS ---
Addendum entered and electronically signed by Garry Yoon MD 03/02/24 19:14:
I saw and examined the patient.
The Speech Therapist's note was reviewed and I agree with the note.
Comment: Briefly, 53-year-old man past medical history of ischemic cardiomyopathy and prior [place] s/p PCI who presented with chest discomfort to [facility] and was found to have NSTEMI
He was subsequently transferred to [place] for CT surgery evaluation
Currently asymptomatic, ambulating about the unit without cardiovascular symptoms
Monitor on telemetry
Continue aspirin, high intensity statin, beta-swati and heparin drip
On SGLT2, BERNICE and aldactone for ICM/HFrEF, will discuss with CT surgery when these need to be held for OR
Rest per Diana Rivas
Original Note:
Today's Communication / Plan
-
Continue current medical therapy
Timing of OR per CT surgery
Impression / Plan
-
This is the H&P summary.
Full H&P scanned into chart.
PCP: Marli Mojica MD
CDY: Blane Stewart MD
HPI: 53 y/o white male, PMH sig for moderate ischemic cardiomyopathy after late presentation [place] (he refused care at first) and ultimately needed LAD stent (06/2022), prior RCA stenting in 2021. He has been feeling well until Sun 02/24, when he woke up
with chest pain and was intermittent throughout the day. Worse with any activity. Eventually agreed to come to ER and ECG was fine but enzymes showed acute NSTEMI pattern. He is taking aspirin and Plavix. IV and oral nitrates are giving him a
headache. No recent illness or other changes. On insulin and struggles with glucose control. Chest pain free overnight.
Peak HS troponin 642 with peak CK 334/MB 36.
Echo 09/19/23- moderate LV systolic dysfunction, EF 35-40%, mod CLVH, apical DK, inferior/anterior/entire inf septum, mid/ap ant septum and apical lateral segment are HK.
IMPRESSION:
NSTEMI
MV CAD
Late presentation NSTEMI w/prox LAD PCI (07/13/22)
Prior RCA PCI (2021)
Ischemic Cardiomyopathy, EF 35-40%
Chronic systolic HFrEF
HTN
HLD
DM, poorly controlled
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
Peripheral neuropathy
Non alcoholic fatty liver disease (NAFLD).
Chronic LFT elevation
Medication noncompliance
PLAN:
-He presented to [place] as NSTEMI. Was transferred to [facility] for cardiac catheterization which showed multivessel obstructive disease
-Remains chest pain-free
-Awaiting timing of CABG as CT schedule permits, d/w CT surgical team. Plavix washout
-Continue aspirin, IV heparin, crestor, Toprol for ACS
-Cont lisinopril, Aldactone, Farxiga (listed as being on jardiance as OP) for ICM (EF by echo at [facility] stable at 35-40%)
-Sinus rhythm with occassional ectopy on review of telemetry overnight
-Follow volume status. was diuresed at [facility] prior to transfer. LVEDP by cath on arrival was 13. holding on further lasix
-Hemoglobin A1c 8.3%. needs improved control, appreciate diabetic HEALTH INSPECTOR mgmt
-Follow up w/ Dr. Stewart at d/c
Progress Note - Captain Cannery Tender
Subjective
Date of Service: March 01, 2024
No acute overnight events. Resting comfortably. No chest discomfort, shortness of breath or lower extremity edema.
Objective
Labs:
03/01/24 03:28
02/29/24 05:23
Labs
Hgb 15.2 g/dL (13.0-18.0) 03/01/24 03:28
Hct 42.6 % (39.0-52.0) 03/01/24 03:28
Plt Count 231 10^3/uL (130-400) 03/01/24 03:28
PT 13.1 Sec (11.4-14.6) 02/27/24 06:17
INR 1.01 02/27/24 06:17
APTT 99.6 Sec (23.4-35.0) H 03/01/24 03:28
Sodium 138 mmol/L (135-145) 02/29/24 05:23
Potassium 4.6 mmol/L (3.5-5.1) 02/29/24 05:23
BUN 28 mg/dl (9-20) H 02/29/24 05:23
Creatinine 1.0 mg/dL (0.7-1.3) 02/29/24 05:23
Glucose 159 mg/dl (70-99) H 02/29/24 05:23
Vital Signs and I&O:
Vital Signs
Temp Pulse Resp BP Pulse Ox
97.4 F 100 18 118/88 97
03/01/24 11:38 03/01/24 12:00 03/01/24 11:38 03/01/24 11:32 03/01/24 11:38
Vital Signs
Temp Pulse Resp BP Pulse Ox
97.4 F 100 18 118/88 97
03/01/24 11:38 03/01/24 12:00 03/01/24 11:38 03/01/24 11:32 03/01/24 11:38
Intake & Output
02/28/24 02/29/24 03/01/24 03/02/24
06:59 06:59 06:59 06:59
Intake Total 960 / 960 760 / 760 400 / 400
Balance 960 / 960 760 / 760 400 / 400
Physical Exam
Physical Exam
Gen: NAD, AAOx3
HEENT: NC/AT, sclera anicteric
Neck: No JVD
CV: RRR, NL s1/s2, no M/R/G
Lungs: CTAB
Abd: S/ND
Ext: No LE edema
Skin: Warm, dry
Neuro: Non-focal
--- NOTE | 2024-03-01 14:22 | CM ---
Reviewed chart. Met with Mr. Bautista to review discharge plans. Prior to admission he resides with his spouse in a three story home with four steps to enter. He has to go up a full flight of steps to get to bedroom/full bathroom. Prior to
admission he was independent with ambulation and adls. He does not have any DME in the home. He has a prescription plan. He states his family will be available to assist in his care when he goes home. Medical work-up in progress. The discharge
plan is to return home with his spouse and [facility] Services when medically stable.
We reviewed pre-op and post-op routines. We briefly reviewed the shower instructions. We also reviewed restrictions including sternal precautions and driving restrictions. We also discussed [facility]NA Services. He is agreeable to a home visit. The
timing of the surgery is to be determined by the Cardiothoracic Surgeon.
[2024-03-01 14:30] LABS: Glucose - Point of Care 141 mg/dl (70-99)
[2024-03-01] MEDS: NOVOLOG FLEXPEN-MODERATE RESISTANCE SC (14:30)
[2024-03-01 17:35] LABS: Glucose - Point of Care 256 mg/dl (70-99)
[2024-03-01] MEDS: NOVOLOG FLEXPEN-MODERATE RESISTANCE 5 UNITS SC (17:38)
[2024-03-01] MEDS: CRESTOR 40 MG PO (17:43)
--- NOTE | 2024-03-01 20:40 | PTCARENOTE ---
Pt. received at change of shift. Pt. ambulating halls without difficulty. Pt. assessed in room. VS WNL. Tele reading NSR 90s. Heparin drip running at 20mL/hr, next PTT in AM. Plan of care explained to pt by this RN. Pt. verbalizes understanding.
Call beltran within reach. Continuing to monitor at this time.
[2024-03-01 21:13] LABS: Glucose - Point of Care 104 mg/dl (70-99)
[2024-03-01] MEDS: LANTUS 0.22 UNITS SC (22:26)
[2024-03-02] VITALS (7 sets, daily range): BP systolic 103–133; BP diastolic 81–119
[2024-03-02 04:39] LABS: APTT 138.9 Sec (23.4-35.0)
[2024-03-02 05:02] LABS: Blood Urea Nitrogen 27 mg/dl (9-20); Calcium 9.1 mg/dl (8.4-10.2); Carbon Dioxide 18 mmol/L (22-30); Chloride 103 mmol/L (98-107); Estimated Creatinine Clearance 111 ml/min; Glucose 107 mg/dl (70-99); Potassium 4.3 mmol/L (3.5-5.1); Sodium 136 mmol/L (135-145); eGFR > 60.00
[2024-03-02 08:22] LABS: Glucose - Point of Care 141 mg/dl (70-99)
[2024-03-02] MEDS: ZESTRIL 2.5 MG PO (08:25)
[2024-03-02] MEDS: ASPIR LOW (ENTERIC COATED) 81 MG PO (08:25)
[2024-03-02] MEDS: ALDACTONE 25 MG PO (08:25)
[2024-03-02] MEDS: TOPROL XL 25 MG PO (08:25)
[2024-03-02] MEDS: FARXIGA 10 MG PO (08:25)
[2024-03-02] MEDS: NOVOLOG FLEXPEN-MODERATE RESISTANCE SC ×3 (08:36→17:42)
[2024-03-02] MEDS: NOVOLOG FLEXPEN 10 UNITS SC ×3 (08:38→17:42)
[2024-03-02 12:39] LABS: Glucose - Point of Care 140 mg/dl (70-99)
--- NOTE | 2024-03-02 13:47 | PTCARENOTE ---
Received patient at shift change, pt ambulating in halls. IV heparin running per protocol. SR on the monitor, VSS. Educated pt on plan of car, pt verbalizes understanding. Call beltran within reach.
[2024-03-02 13:59] LABS: APTT 72.2 Sec (23.4-35.0)
[2024-03-02] MEDS: HEPARIN 25000 UNITS/250 ML IV (15:33)
[2024-03-02 17:42] LABS: Glucose - Point of Care 144 mg/dl (70-99)
[2024-03-02] MEDS: CRESTOR 40 MG PO (17:46)
--- NOTE | 2024-03-02 19:06 | PTCARENOTE ---
pt continues to be sr on the monitor, hr in the 90s, vss. pt educated on plan of care and pt verbalized understanding. pt ambulating thorough the halls and tolerating well. heparin gtt running per protocol, see documentation. call beltran within reach.
[2024-03-02 20:41] LABS: APTT 81.2 Sec (23.4-35.0)
[2024-03-02 22:08] LABS: Glucose - Point of Care 142 mg/dl (70-99)
[2024-03-02] MEDS: LANTUS 0.22 UNITS SC (22:15)
[2024-03-03] VITALS (7 sets, daily range): BP systolic 104–119; BP diastolic 76–87
[2024-03-03] MEDS: HEPARIN 25000 UNITS/250 ML IV ×2 (02:16→14:33)
[2024-03-03 02:24] LABS: Hematocrit 41.8 % (39.0-52.0); Mean Corp Hgb Conc. 35.9 g/dL (33.0-37.0); Mean Corpuscular Hgb 29.4 pg (27.0-31.0); Mean Platelet Volume 9.6 fL (7.4-10.4); Platelet Count 213 10^3/uL (130-400); Red Cell Dist. Width 12.4 % (11.5-14.5); White Blood Cell Count 9.9 10^3/uL (4.8-10.8)
--- NOTE | 2024-03-03 02:25 | PTCARENOTE ---
Pt. has no complaints of chest pain or shortness of breath so fat this shift, NSR-ST on the monitor (110's with ambulation). Ambulates in room and halls frequently, very pleasant. Heparin gtt infusing as per order.
[2024-03-03 02:34] LABS: APTT 101.2 Sec (23.4-35.0)
[2024-03-03 08:24] LABS: Glucose - Point of Care 141 mg/dl (70-99)
[2024-03-03] MEDS: NOVOLOG FLEXPEN-MODERATE RESISTANCE SC ×2 (10:02→14:28)
[2024-03-03] MEDS: NOVOLOG FLEXPEN 10 UNITS SC ×3 (10:02→17:40)
[2024-03-03] MEDS: TOPROL XL 25 MG PO ×2 (10:03→12:24)
[2024-03-03] MEDS: ZESTRIL 2.5 MG PO (10:03)
[2024-03-03] MEDS: ASPIR LOW (ENTERIC COATED) 81 MG PO (10:03)
[2024-03-03] MEDS: ALDACTONE 25 MG PO (10:04)
--- NOTE | 2024-03-03 10:50 | W.PN.UPDATE ---
Update Note
Progress Note Update
Patient is tentatively scheduled for CABG on Monday with Dr. Cazares. It was observed that he had a 12 beat run of A-fib he was asymptomatic at the time and increased metoprolol Xl to 50mg Daily.
--- NOTE | 2024-03-03 13:13 | W.PN.CARDCBS ---
Today's Communication / Plan
-
Continue aspirin, high intensity statin, BB, heparin drip
Await OR
Impression / Plan
-
This is the H&P summary.
Full H&P scanned into chart.
PCP: Marli Mojica MD
CDY: Blane Stewart MD
HPI: 53 y/o white male, PMH sig for moderate ischemic cardiomyopathy after late presentation [place] (he refused care at first) and ultimately needed LAD stent (06/2022), prior RCA stenting in 2021. He has been feeling well until Sun 02/24, when he woke up
with chest pain and was intermittent throughout the day. Worse with any activity. Eventually agreed to come to ER and ECG was fine but enzymes showed acute NSTEMI pattern. He is taking aspirin and Plavix. IV and oral nitrates are giving him a
headache. No recent illness or other changes. On insulin and struggles with glucose control. Chest pain free overnight.
Peak HS troponin 642 with peak CK 334/MB 36.
Echo 09/19/23- moderate LV systolic dysfunction, EF 35-40%, mod CLVH, apical DK, inferior/anterior/entire inf septum, mid/ap ant septum and apical lateral segment are HK.
IMPRESSION:
NSTEMI
MV CAD
Late presentation NSTEMI w/prox LAD PCI (07/13/22)
Prior RCA PCI (2021)
Ischemic Cardiomyopathy, EF 35-40%
Chronic systolic HFrEF
HTN
HLD
DM, poorly controlled
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
Peripheral neuropathy
Non alcoholic fatty liver disease (NAFLD).
Chronic LFT elevation
Medication noncompliance
PLAN:
-He presented to [place] as NSTEMI. Was transferred to [facility] for cardiac catheterization which showed multivessel obstructive disease.
-Remains chest pain-free
-Awaiting timing of CABG per CT surgery
-Continue aspirin, IV heparin, crestor, Toprol for ACS
-Cont lisinopril, Aldactone, Farxiga for ICM (EF by echo at [facility] stable at 35-40%), hold for OR per CTS
-Sinus rhythm with occasional ectopy including non-sustained SVT
-Follow volume status. was diuresed at [facility] prior to transfer. LVEDP by cath on arrival was 13. holding on further lasix
-Hemoglobin A1c 8.3%. needs improved control, appreciate diabetic DECK MATE mgmt
-Follow up w/ Dr. Stewart at d/c
d/w CTS PA
Progress Note - Results Technician
Subjective
Date of Service: March 03, 2024
No acute overnight events. Patient was resting comfortably in bed this morning eating cereal at the time my evaluation. He has been ambulating the halls without chest discomfort or shortness of breath.
Objective
Labs:
03/03/24 02:10
03/02/24 04:20
Labs
Hgb 15.0 g/dL (13.0-18.0) 03/03/24 02:10
Hct 41.8 % (39.0-52.0) 03/03/24 02:10
Plt Count 213 10^3/uL (130-400) 03/03/24 02:10
PT 13.1 Sec (11.4-14.6) 02/27/24 06:17
INR 1.01 02/27/24 06:17
APTT 101.2 Sec (23.4-35.0) H 03/03/24 02:10
Sodium 136 mmol/L (135-145) 03/02/24 04:20
Potassium 4.3 mmol/L (3.5-5.1) 03/02/24 04:20
BUN 27 mg/dl (9-20) H 03/02/24 04:20
Creatinine 0.9 mg/dL (0.7-1.3) 03/02/24 04:20
Glucose 107 mg/dl (70-99) H 03/02/24 04:20
Vital Signs and I&O:
Vital Signs
Temp Pulse Resp BP Pulse Ox
98.5 F 97 20 117/82 98
03/03/24 12:21 03/03/24 12:24 03/03/24 12:21 03/03/24 12:24 03/03/24 12:21
Vital Signs
Temp Pulse Resp BP Pulse Ox
98.5 F 97 20 117/82 98
03/03/24 12:21 03/03/24 12:24 03/03/24 12:21 03/03/24 12:24 03/03/24 12:21
Intake & Output
03/01/24 03/02/24 03/03/24 03/04/24
06:59 06:59 06:59 06:59
Intake Total 400 / 400 480 / 480 480 / 480
Balance 400 / 400 480 / 480 480 / 480
Physical Exam
Physical Exam
Gen: NAD, AAOx3
HEENT: NC/AT, sclera anicteric
Neck: No JVD
CV: RRR, NL s1/s2
Lungs: CTAB
Abd: S/ND
Ext: No LE edema
Skin: Warm, dry
Neuro: Non-focal
[2024-03-03 13:34] LABS: Glucose - Point of Care 108 mg/dl (70-99)
[2024-03-03 17:02] LABS: Glucose - Point of Care 192 mg/dl (70-99)
[2024-03-03] MEDS: NOVOLOG FLEXPEN-MODERATE RESISTANCE 1 UNITS SC (17:41)
[2024-03-03] MEDS: CRESTOR 40 MG PO (17:41)
--- NOTE | 2024-03-03 18:09 | PTCARENOTE ---
Pt. has no complaints of chest pain or shortness of breath so fat this shift, NSR-ST on the monitor (110's with ambulation). Ambulates in room and halls frequently and tolerating well. Heparin gtt infusing as per order. pt educated on plan of care
and pt verbalized understanding. call beltran within reach.
[2024-03-03 22:12] LABS: Glucose - Point of Care 151 mg/dl (70-99)
[2024-03-03] MEDS: LANTUS 0.22 UNITS SC (22:17)
[2024-03-04] VITALS (11 sets, daily range): BP systolic 98–152; BP diastolic 72–139
--- NOTE | 2024-03-04 01:45 | PTCARENOTE ---
NSR on the monitor, VSS. Pt. has no complaints of chest pain. Heparin infusing as per order.
[2024-03-04] MEDS: HEPARIN 25000 UNITS/250 ML IV (02:54)
[2024-03-04] MEDS: TYLENOL 650 MG PO (02:57)
--- NOTE | 2024-03-04 07:36 | PN.DE.MGMTRT ---
Insulin Management
- -
03/04/2024: Diabetes Management F/U:
Patient presented to the ED with chest pain, NSTEMI, known to diabetes team from previous admission,
PMH: HTN, ICM, CAD s/p PCI, HLD, NAFLD, Chronic LFT elevation, T2DM. On insulin and struggles with glucose control. A1C 8.3%, Cr 1.0, eGFR >60. Prior to admission was taking Farxiga 25 mg daily, metformin 500 mg BID with Lantus 18 units @ HS and
NovoLog 5 units AC. He states he has had diabetes ~ 5 years and his primary doctor cares for his diabetes.
Patient is awake alert and oriented walking about in room, able to discuss diabetes regimen. Cr 0.9, eGFR >60,
03/03 Premeal glucose 108 to 192, HS 151. Received Lantus 22 @ HS, FBG 110 POC.
Will make no changes to current regimen: Cont AC NovoLog 10 units, Lantus 22 units @ HS and low corrective insulin with meals
Patient having workup for CABG. Will stop Farxiga for now, as he get closer to surgical date.
Diabetes History
- -
Type of Diabetes: 2 requiring insulin
Pre-Admission Diabetes Regimen
Lab Results
Hemoglobin A1c 8.3 % (4.0-5.6) H 02/27/24 06:17
Insulin Pump Settings
IP Diabetes Regimen
03/03/24 03/03/24 03/03/24
08:23 13:33 17:01
POC Glucose 141 H 108 H 192 H
03/03/24
22:11
POC Glucose 151 H
Meal type: Breakfast
Amount consumed: 100%
Patient Education
[2024-03-04] MEDS: TOPROL XL 50 MG PO (08:32)
[2024-03-04] MEDS: ASPIR LOW (ENTERIC COATED) 81 MG PO (08:32)
[2024-03-04 08:45] LABS: Glucose - Point of Care 110 mg/dl (70-99)
[2024-03-04] MEDS: NOVOLOG FLEXPEN-MODERATE RESISTANCE SC ×2 (08:47→17:21)
--- NOTE | 2024-03-04 10:26 | W.PN.CARDCBS ---
Addendum entered and electronically signed by Kyleigh Oliveira DO 03/04/24 12:41:
I saw and examined the patient.
The Hydro Plant Operator's note was reviewed and I agree with the note.
Comment: Patient seen and examined. Out of bed to chair and ambulating around room without symptoms. No chest pain or pressure. No shortness of breath. No edema.
General: No acute distress, AAOX3
Neck: Negative JVD
Heart: Regular, Negative S3 positive S1/S2, Negative S4, No murmur
Lungs: CTA b/l, negative wheezes/rales/rhonchi
Abd: Positive BS, NT/ND, neg rebound/rigidity/guarding
Ext: Negative cyanosis/clubbing/edema
Neuro: nonfocal
Plan:
Non-STEMI with known multivessel coronary artery disease
Currently asymptomatic from cardiovascular standpoint
Awaiting OR for CABG anticipated 03/06/2024 after Plavix washout
For now, continue aspirin, high intensity statin, beta-swati and heparin drip as well as spironolactone and lisinopril
Tentative plan to resume Plavix prior to discharge and continue for at least 1 year
Original Note:
Today's Communication / Plan
-
Palmar arch ultrasound pending
Continue IV heparin, beta-swati, aspirin, statin
Lisinopril, Farxiga, Aldactone on hold pending CABG
Anticipated OR for CABG 03/06/2024
Impression / Plan
-
PCP: Marli Mojica MD
CDY: Blane Stewart MD
IMPRESSION:
Presented 02/25/2024 with NSTEMI to [facility]
CAD
MVCAD on cath 02/26/24
Late presentation NSTEMI w/prox LAD PCI (07/13/22)
Prior RCA PCI (2021)
Ischemic Cardiomyopathy, EF 35-40%
Chronic systolic HFrEF
HTN
HLD
DM, poorly controlled
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
Peripheral neuropathy
Non alcoholic fatty liver disease (NAFLD).
Chronic LFT elevation
Medication noncompliance
Cardiac catheterization 02/26/2024: LM: Normal. LAD: Ulcerated 95% ostial stenosis just proximal to previously placed proximal stent. Patent proximal to mid LAD stent. Diagonal branch ostial disease with normal distal flow.: Ramus: Lateral distal
branch 50% stenosis. Left circumflex: Patent. RCA patent mid RCA stent. Ostial proximal RPDA stenosis, diffuse mid 50 to 60% stenosis. Ostial PLV 60% stenosis. LVG: Mild to moderate anterolateral hypokinesis. Mild inferoapical hypokinesis. LV
systolic dysfunction estimated EF 40%
Echo 09/19/23- moderate LV systolic dysfunction, EF 35-40%, mod CLVH, apical DK, inferior/anterior/entire inf septum, mid/ap ant septum and apical lateral segment are HK.
Carotid duplex 02/27/2024: Less than 50% bilateral ICA stenosis
PLAN:
-He presented to [place] as NSTEMI on 02/25/24. Was transferred to [facility] for cardiac catheterization which showed multivessel obstructive disease.
-Remains chest pain-free on heparin gtt
-Anticipated OR for CABG per CT surgery 03/06/2024
-Continue aspirin, IV heparin, Crestor, Toprol for ACS
-Eventual resumption of Lisinopril, Aldactone, Farxiga for ICM (EF by echo at [facility] stable at 35-40%), currently on hold for OR per CTS
-Sinus rhythm with occasional ectopy including non-sustained SVT. Toprol increased to 50 mg with improvement of ectopy
-Follow volume status. was diuresed at [facility] prior to transfer. LVEDP by cath on arrival was 13. holding on further lasix
-Hemoglobin A1c 8.3%. needs improved control, appreciate diabetic TUBE ROOM CASHIER mgmt
-Lipids 02/27/2024 TC 158, HDL 41, LDL 72, triglycerides 226. Continue high intensity statin. Consider PCSK9 inhibitor as outpatient if LDL remains suboptimally controlled
-Follow up w/ Dr. Stewart at d/c
d/w CTS PA
HPI 02/26/24:
Patient is a 53 y/o white male, PMH sig for moderate ischemic cardiomyopathy after late presentation [place] (he refused care at first) and ultimately needed LAD stent (06/2022), prior RCA stenting in 2021. He has been feeling well until Sun 02/24, when he
woke up with chest pain and was intermittent throughout the day. Worse with any activity. Eventually agreed to come to ER and ECG was fine but enzymes showed acute NSTEMI pattern. He is taking aspirin and Plavix. IV and oral nitrates are giving him
a headache. No recent illness or other changes. On insulin and struggles with glucose control. Chest pain free overnight.
Peak HS troponin 642 with peak CK 334/MB 36.
Progress Note - Engineer Byproduct
Subjective
Date of Service: March 04, 2024
Patient seen and examined. Patient reports he is feeling well. He has been able to ambulate around the unit without chest pain or shortness of breath. Denies orthopnea or PND.
Objective
Labs:
03/03/24 02:10
03/02/24 04:20
Labs
Hgb 15.0 g/dL (13.0-18.0) 03/03/24 02:10
Hct 41.8 % (39.0-52.0) 03/03/24 02:10
Plt Count 213 10^3/uL (130-400) 03/03/24 02:10
PT 13.1 Sec (11.4-14.6) 02/27/24 06:17
INR 1.01 02/27/24 06:17
APTT 116.0 Sec (23.4-35.0) H 03/04/24 02:51
Sodium 136 mmol/L (135-145) 03/02/24 04:20
Potassium 4.3 mmol/L (3.5-5.1) 03/02/24 04:20
BUN 27 mg/dl (9-20) H 03/02/24 04:20
Creatinine 0.9 mg/dL (0.7-1.3) 03/02/24 04:20
Glucose 107 mg/dl (70-99) H 03/02/24 04:20
Vital Signs and I&O:
Vital Signs
Temp Pulse Resp BP Pulse Ox
97.6 F 87 20 114/76 99
03/04/24 08:28 03/04/24 08:32 03/04/24 08:28 03/04/24 08:32 03/04/24 08:28
Vital Signs
Temp Pulse Resp BP Pulse Ox
97.6 F 87 20 114/76 99
03/04/24 08:28 03/04/24 08:32 03/04/24 08:28 03/04/24 08:32 03/04/24 08:28
Intake & Output
03/02/24 03/03/24 03/04/24 03/05/24
06:59 06:59 06:59 06:59
Intake Total 480 / 480 1892
Balance 480 / 480 1892
Physical Exam
Physical Exam
GEN: No distress, awake, Ox3
HEENT: supple, anicteric, mmm
LUNGS: CTA, no wheezes/rales
CV: Reg, S1/S2, 1/6 syst LSB, no murmur
ABD: soft, BS+, NT/ND
EXT: No edema, clubbing or cyanosis
NEURO: Gross non-focal
SKIN: No rash, warm, dry, pink
[2024-03-04] MEDS: NOVOLOG FLEXPEN 10 UNITS SC ×3 (10:30→17:22)
--- NOTE | 2024-03-04 10:48 | CM ---
Reviewed chart. Met with Mr. Bautista to review discharge plans. He states he is feeling well and waiting for surgery. Prior to admission he resides with his spouse in a three story home with four steps to enter. He has a full flight of steps to
get to bedroom/full bathroom. Prior to admission he was independent with ambulation and adls. He does not have any DME in the home. He has a prescription plan. His family will be available to assist in his care if needed when he goes home. Medical
work-up in progress. The discharge plan is to return home with his spouse and [facility] when medically stable.
--- NOTE | 2024-03-04 11:49 | PTCARENOTE ---
Pt AOx3, no complaints of pain or discomfort. independent OOB. SR on tele monitor. heparin gtt infusing per orders. Call beltran within reach.
[2024-03-04 12:08] LABS: APTT 69.9 Sec (23.4-35.0)
[2024-03-04 12:28] LABS: Blood Urea Nitrogen 24 mg/dl (9-20); Calcium 9.1 mg/dl (8.4-10.2); Carbon Dioxide 20 mmol/L (22-30); Chloride 102 mmol/L (98-107); Estimated Creatinine Clearance 100 ml/min; Glucose 206 mg/dl (70-99); Potassium 4.7 mmol/L (3.5-5.1); Sodium 135 mmol/L (135-145); eGFR > 60.00
[2024-03-04 13:23] LABS: Glucose - Point of Care 305 mg/dl (70-99)
[2024-03-04] MEDS: NOVOLOG FLEXPEN-MODERATE RESISTANCE 7 UNITS SC (13:23)
[2024-03-04 17:19] LABS: Glucose - Point of Care 108 mg/dl (70-99)
[2024-03-04] MEDS: CRESTOR 40 MG PO (17:24)
[2024-03-04 18:33] LABS: APTT 97.7 Sec (23.4-35.0)
--- NOTE | 2024-03-04 20:50 | PTCARENOTE ---
Pt. received at change of shift. Pt. seen and assessed in room. Pt. AOx3, VS WNL. Ambulating in room and hallway without any difficulty. No complaints of pain at this time. Heparin drip running at 1900units/hr. Next PTT to be drawn at midnight. Pt.
verbalizes understanding of plan. Call beltran within reach. Continuing to monitor at this time.
[2024-03-04] MEDS: NITROSTAT (SUBLINGUAL) 0.4 MG SL (22:48)
[2024-03-04 22:51] LABS: Glucose - Point of Care 212 mg/dl (70-99)
[2024-03-04] MEDS: LANTUS 0.22 UNITS SC (22:52)
--- NOTE | 2024-03-04 23:14 | PTCARENOTE ---
Pt. walked out of room to the nurse's station to report to RN he has chest pain located in the middle of his chest. RN walked patient back to room and sat him down in bed, pt unable to lay flat bc of intensifying CP. EKG done, placed in chart. Pt.
sitting up reports 7/10 CP. BP elevated, prn SL nitro given x2, CP down to 4/10. BP 98/73. Pt. also vomited, CP relieved after vomiting. Blood sugar checked, 212. 22units of lantus given per order. Heparin still running at 19units/hr. Pt. educated
on using call beltran rather than walking around to look for help if episode reoccurs. Pt. verbalizes understanding. Continuing to monitor at this time.
--- NOTE | 2024-03-04 23:55 | W.PN.UPDATE ---
Update Note
Progress Note Update
Cardiology update note:
-Pt c/o 12/05 substernal chest pain, pain resolved after SL NTG x 2 and vomiting
-EKG showed anterolateral STEMI
-Pt currently on Heparin gtt awaiting CABG on Monday03/06/24 after Plavix washout
-Will cont. to monitor and consider NTG paste or gtt if further chest pain
[2024-03-05] VITALS (8 sets, daily range): BP systolic 103–133; BP diastolic 65–96
[2024-03-05 00:38] LABS: APTT 34.5 Sec (23.4-35.0)
[2024-03-05] MEDS: REGLAN 10 MG IV ×2 (01:43→22:46)
--- NOTE | 2024-03-05 07:15 | W.PN.CT ---
Today's Communication / Plan
-
-Pt had 7/10 substernal cp last night, resolved after SL NTG x 2 with subsequent vomiting by pt
-Will likely require NTG paste or gtt if further chest pain
-Plavix washout
-For CABG by Dr. Cazares tomorrow 03/06/24
Assessment / Plan
-
Assessment:
Presented 02/25/2024 with NSTEMI to [facility]
CAD
MVCAD on cath 02/26/24
Late presentation NSTEMI w/prox LAD PCI (07/13/22)
Prior RCA PCI (2021)
Ischemic Cardiomyopathy, EF 35-40%
Chronic systolic HFrEF
HTN
HLD
DM, poorly controlled
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
Peripheral neuropathy
Non alcoholic fatty liver disease (NAFLD).
Chronic LFT elevation
Medication noncompliance
Discussed patient care with: Cardiology, Nursing, Respiratory Therapy, Pharmacy and Care Team
Subjective
-
Date of Service: March 05, 2024
Pt had 7/10 chest pain, which resolved after SL NTG x 2 and vomiting by pt
Objective Data
-
PT 13.1 Sec (11.4-14.6) 02/27/24 06:17
INR 1.01 02/27/24 06:17
APTT 34.5 Sec (23.4-35.0) 03/05/24 00:19
Vital Signs
Vital Signs
Temp Pulse Resp BP Pulse Ox
98.1 F 95 20 105/79 96
03/05/24 05:01 03/05/24 04:59 03/04/24 19:47 03/05/24 04:59 03/04/24 19:47
CT Intake/Output/Weight
03/04/24 03/05/24 03/05/24
18:59 06:59 18:59
Output Total 200 / 200
Balance -200 / -200
SaO2: 96 (RA)
Physical Exam
-
General: Awake, Oriented and AOx3
Cardiovascular: Regular rate & rhythm and No Murmurs
Respiratory: Decreased Breath Sounds
Sternum: Stable
Incision: Clean, Dry, Intact and Dressing Intact
Extremities: No Edema
Data Reviewed
-
Lab Results: Results Reviewed
Medications: Active Meds Reviewed
Chest X-Ray: Report Reviewed and Image Reviewed
ECG: Report Reviewed and Image Reviewed
[2024-03-05 07:39] LABS: Glucose - Point of Care 170 mg/dl (70-99)
[2024-03-05] MEDS: NOVOLOG FLEXPEN-MODERATE RESISTANCE 1 UNITS SC ×3 (07:42→17:33)
[2024-03-05] MEDS: ASPIR LOW (ENTERIC COATED) 81 MG PO (07:43)
[2024-03-05] MEDS: TOPROL XL 50 MG PO (07:43)
[2024-03-05] MEDS: NOVOLOG FLEXPEN 10 UNITS SC ×2 (07:43→17:34)
[2024-03-05 07:45] LABS: Hematocrit 43.9 % (39.0-52.0); Hemoglobin 15.2 g/dL (13.0-18.0); Mean Corp Hgb Conc. 34.6 g/dL (33.0-37.0); Mean Corpuscular Hgb 29.1 pg (27.0-31.0); Mean Corpuscular Volume 83.9 fL (80.0-94.0); Mean Platelet Volume 9.6 fL (7.4-10.4); Platelet Count 226 10^3/uL (130-400); Red Blood Cell Count 5.23 10^6/uL (4.70-6.10); Red Cell Dist. Width 12.6 % (11.5-14.5); White Blood Cell Count 12.8 10^3/uL (4.8-10.8)
[2024-03-05 07:51] LABS: INR 1.05; PT 13.5 Sec (11.4-14.6)
[2024-03-05 07:53] LABS: APTT 130.3 Sec (23.4-35.0)
[2024-03-05 08:46] LABS: Blood Urea Nitrogen 25 mg/dl (9-20); Calcium 9.2 mg/dl (8.4-10.2); Carbon Dioxide 21 mmol/L (22-30); Chloride 99 mmol/L (98-107); Estimated Creatinine Clearance 91 ml/min; Glucose 170 mg/dl (70-99); Potassium 5.2 mmol/L (3.5-5.1); Sodium 136 mmol/L (135-145); eGFR > 60.00
--- NOTE | 2024-03-05 09:10 | PN.DE.MGMTRT ---
Insulin Management
- -
03/05/2024: Diabetes Management Follow up:
Patient presented to the ED with chest pain, NSTEMI, known to diabetes team from previous admission,
PMH: HTN, ICM, CAD s/p PCI, HLD, NAFLD, Chronic LFT elevation, T2DM. On insulin and struggles with glucose control. A1C 8.3%, Cr 1.0, eGFR >60. Prior to admission was taking Farxiga 25 mg daily, metformin 500 mg BID with Lantus 18 units @ HS and
NovoLog 5 units AC. He states he has had diabetes ~ 5 years and his primary doctor cares for his diabetes.
Patient is awake alert and oriented walking about in room, able to discuss diabetes regimen. Cr 1, eGFR >60.
03/04 Premeal glucose 110 to 305, HS 151. Received Lantus 22 @ HS, FBG 170 POC.
Will make no changes to current regimen: Cont AC NovoLog 10 units, Lantus 22 units @ HS and low corrective insulin with meals
Patient for CABG 03/06.
Diabetes History
- -
Type of Diabetes: 2 requiring insulin
Pre-Admission Diabetes Regimen
03/04/24 03/05/24
11:21 07:31
Creatinine 1.0 1.1
Lab Results
Hemoglobin A1c 8.3 % (4.0-5.6) H 02/27/24 06:17
Insulin Pump Settings
IP Diabetes Regimen
03/04/24 03/04/24 03/04/24
11:21 13:22 17:17
Glucose 206 H
POC Glucose 305 H 108 H
03/04/24 03/05/24 03/05/24
22:50 07:31 07:37
Glucose 170 H
POC Glucose 212 H 170 H
Patient Education
--- NOTE | 2024-03-05 10:25 | PTCARENOTE ---
Patient did not sleep well, currently sleeping. Heparin infusing at 2000 units/hr, adjusted dose per PTT. Lights off, call beltran in reach
[2024-03-05] MEDS: HEPARIN 25000 UNITS/250 ML IV (12:11)
[2024-03-05 12:16] LABS: Glucose - Point of Care 165 mg/dl (70-99)
[2024-03-05] MEDS: NOVOLOG FLEXPEN SC (13:22)
--- NOTE | 2024-03-05 13:33 | CM ---
Reviewed chart. Mr. Bautista is schedule for surgery tomorrow 03/06/24. Prior to admission he resides with his spouse in a three story home with four steps to enter. He has a full flight of steps to get to bedroom/full bathroom. Prior to
admission he was independent with ambulation and adls. He does not have any DME in the home. His family will be around to assist in his care when he goes home. Medical work-up in progress. The discharge plan is to return home with his spouse and
family support with a home visit by the Cardiothoracic Transitional Care Nurse when medically stable.
--- NOTE | 2024-03-05 13:37 | PTCARENOTE ---
Patient up walking in hallway. When asked about his chest pain, he states 'I'm all right, just feel sick to my stomach'. Hasn't eaten much today, encouraged him to order lunch since he will be fasting after midnight
--- NOTE | 2024-03-05 14:56 | W.PN.UPDATE ---
Update Note
Progress Note Update
CARDIAC SURGERY ATTENDING:
Spoke with Mr. Stew Jr. Michele once again at his bedside today. He had a slightly depressed affect during our conversation today as opposed to feeling quite anxious yesterday. I once again reviewed his pathology, discussed the planned
operative interventions for tomorrow. We previously discussed the procedural risks (including, but not limited to, , stroke, ME, arrhythmia, PNA, LONG/F, bleeding, and infection). The expected hospital postprocedural course, and expected
outpatient recovery. All questions were answered to the best of my abilities. He has been agreeable to proceed. Informed consent has been obtained and is signed on the chart. I also spoke with the patient's at [phone] and answered all
of her questions to the best of my abilities.
I anticipate coronary artery bypass grafting x 2-3 with JOSE to LAD and greater saphenous vein to RPLB with intraoperative assessment of the patient's RPDA. The RPDA vessel has numerous sequential that may limit its potential for bypass.
Thank you for the opportunity to participate in the care of this patient.
Please call with any questions or concerns.
Maxwell Cazares MD
[phone]
[2024-03-05 15:24] LABS: APTT 117.3 Sec (23.4-35.0)
--- NOTE | 2024-03-05 17:03 | W.PN.CARDCBS ---
Today's Communication / Plan
-
RECOMMENDATIONS:
-Stable for CABG in am
-Will follow post op
Impression / Plan
-
PCP: Marli Mojica MD
CDY: Blane Stewart MD
IMPRESSION:
Presented 02/25/2024 with NSTEMI to [facility]
CAD
MVCAD on cath 02/26/24
Late presentation NSTEMI w/prox LAD PCI (07/13/22)
Prior RCA PCI (2021)
Ischemic Cardiomyopathy, EF 35-40%
Chronic systolic HFrEF
HTN
HLD
DM, poorly controlled
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
Peripheral neuropathy
Non alcoholic fatty liver disease (NAFLD).
Chronic LFT elevation
Medication noncompliance
Cardiac catheterization 02/26/2024: LM: Normal. LAD: Ulcerated 95% ostial stenosis just proximal to previously placed proximal stent. Patent proximal to mid LAD stent. Diagonal branch ostial disease with normal distal flow.: Ramus: Lateral distal
branch 50% stenosis. Left circumflex: Patent. RCA patent mid RCA stent. Ostial proximal RPDA stenosis, diffuse mid 50 to 60% stenosis. Ostial PLV 60% stenosis. LVG: Mild to moderate anterolateral hypokinesis. Mild inferoapical hypokinesis. LV
systolic dysfunction estimated EF 40%
Echo 09/19/23- moderate LV systolic dysfunction, EF 35-40%, mod CLVH, apical DK, inferior/anterior/entire inf septum, mid/ap ant septum and apical lateral segment are HK.
Carotid duplex 02/27/2024: Less than 50% bilateral ICA stenosis
PLAN:
-He presented to [place] as NSTEMI on 02/25/24. Was transferred to [facility] for cardiac catheterization which showed multivessel obstructive disease.
-Remains chest pain-free on heparin gtt
-CABG per CT surgery 03/06/2024
-Continue aspirin, IV heparin, Crestor, Toprol for ACS
-Eventual resumption of Lisinopril, Aldactone, Farxiga for ICM (EF by echo at [facility] stable at 35-40%), currently on hold for OR per CTS
-Sinus rhythm with occasional ectopy including non-sustained SVT. Toprol increased to 50 mg with improvement of ectopy
-Follow volume status. was diuresed at [facility] prior to transfer. LVEDP by cath on arrival was 13. holding on further lasix
-Hemoglobin A1c 8.3%. needs improved control, appreciate diabetic PHOTOENGRAVING PRINTER mgmt
-Lipids 02/27/2024 TC 158, HDL 41, LDL 72, triglycerides 226. Continue high intensity statin. Consider PCSK9 inhibitor as outpatient if LDL remains suboptimally controlled
-Follow up w/ Dr. Stewart at d/c
d/w CTS PA
HPI 02/26/24:
Patient is a 53 y/o white male, PMH sig for moderate ischemic cardiomyopathy after late presentation [place] (he refused care at first) and ultimately needed LAD stent (06/2022), prior RCA stenting in 2021. He has been feeling well until Sun 02/24, when he
woke up with chest pain and was intermittent throughout the day. Worse with any activity. Eventually agreed to come to ER and ECG was fine but enzymes showed acute NSTEMI pattern. He is taking aspirin and Plavix. IV and oral nitrates are giving him
a headache. No recent illness or other changes. On insulin and struggles with glucose control. Chest pain free overnight.
Peak HS troponin 642 with peak CK 334/MB 36.
Progress Note - Speed Reading Teacher
Subjective
Date of Service: March 05, 2024
Feels well. No complaints
Objective
Labs:
03/05/24 07:31
03/05/24 07:31
Labs
Hgb 15.2 g/dL (13.0-18.0) 03/05/24 07:31
Hct 43.9 % (39.0-52.0) 03/05/24 07:31
Plt Count 226 10^3/uL (130-400) 03/05/24 07:31
PT 13.5 Sec (11.4-14.6) 03/05/24 07:31
INR 1.05 03/05/24 07:31
APTT 117.3 Sec (23.4-35.0) H 03/05/24 14:56
Sodium 136 mmol/L (135-145) 03/05/24 07:31
Potassium 5.2 mmol/L (3.5-5.1) H 03/05/24 07:31
BUN 25 mg/dl (9-20) H 03/05/24 07:31
Creatinine 1.1 mg/dL (0.7-1.3) 03/05/24 07:31
Glucose 170 mg/dl (70-99) H 03/05/24 07:31
Vital Signs and I&O:
Vital Signs
Temp Pulse Resp BP Pulse Ox
98.1 F 67 16 118/83 97
03/05/24 16:16 03/05/24 16:16 03/05/24 16:16 03/05/24 11:35 03/05/24 16:16
Vital Signs
Temp Pulse Resp BP Pulse Ox
98.1 F 67 16 118/83 97
03/05/24 16:16 03/05/24 16:16 03/05/24 16:16 03/05/24 11:35 03/05/24 16:16
Intake & Output
03/02/24 03/03/24 03/04/24 03/05/24
23:59 23:59 23:59 23:59
Intake Total 1668 / 1668 705 / 705
Output Total 200 / 200
Balance 1668 / 1668 505 / 505
Physical Exam
Physical Exam
GEN: AAO x 3. No acute distress
HEENT: NC/AT, sclera are anicteric, hearing and nares are normal.
LUNGS: Clear to bases bilaterally. No wheezing
CV: Regular rate and rhythm. Murmur: None
ABD : Soft, NT, Bowel sounds are present.
EXT: No CCE
NEURO: No focal neurologic deficits
[2024-03-05 17:20] LABS: Glucose - Point of Care 184 mg/dl (70-99)
[2024-03-05] MEDS: CRESTOR 40 MG PO (17:37)
--- NOTE | 2024-03-05 18:39 | PTCARENOTE ---
Patient ate dinner and vomited immediately afterward. Abdomen non-tender, slightly hyperactive bowel sounds, denies abdominal pain. Lion ordered
[2024-03-05] MEDS: ZOFRAN 4 MG IV (19:06)
[2024-03-05 21:06] LABS: APTT 56.9 Sec (23.4-35.0)
--- NOTE | 2024-03-05 21:14 | PTCARENOTE ---
Pt. received at change of shift. Pt. seen and assessed in room. Pt. AOx3, tele reading NSR. VS WNL. Pt. complaining of nausea, 2/10 chest pain. IV zofran administered. Reassessed pt. after administration, pt. stating he feels 'much better'. Absence
of nausea and 1/10 chest pain. CABG prep begun. Pt. shaved and showered per protocol. RN educates pt on plan of care. Pt. verbalizes understanding. Continuing to monitor at this time.
[2024-03-05 21:34] LABS: Glucose - Point of Care 154 mg/dl (70-99)
[2024-03-05] MEDS: LANTUS SC (22:28)
[2024-03-06] VITALS (15 sets, daily range): BP systolic 79–126; BP diastolic 59–87
[2024-03-06] MEDS: HEPARIN 25000 UNITS/250 ML IV (02:37)
[2024-03-06 05:35] LABS: APTT 88.8 Sec (23.4-35.0)
[2024-03-06] MEDS: PROTONIX 40 MG PO (05:39)
[2024-03-06] MEDS: MAGNESIUM OXIDE 500 MG PO (05:40)
[2024-03-06] MEDS: LOPRESSOR 25 MG PO (05:40)
[2024-03-06] MEDS: BACTROBAN 2% OINTMENT 1 APPLIC NASAL ×2 (05:40→20:09)
[2024-03-06 06:01] LABS: Blood Urea Nitrogen 17 mg/dl (9-20); Calcium 9.5 mg/dl (8.4-10.2); Carbon Dioxide 26 mmol/L (22-30); Chloride 96 mmol/L (98-107); Estimated Creatinine Clearance 91 ml/min; Glucose 204 mg/dl (70-99); Lipase 114 U/L (23-300); Magnesium 1.7 mg/dl (1.6-2.3); Potassium 5.4 mmol/L (3.5-5.1); Sodium 133 mmol/L (135-145); eGFR > 60.00
--- NOTE | 2024-03-06 06:29 | PTCARENOTE ---
CABG prep completed. Pt. awaiting CVOR. VS WNL. No complaints of pain at this time. Continuing to monitor the pt.
[2024-03-06 07:04] LABS: ACT+ - POC 98 Seconds (82-134)
--- NOTE | 2024-03-06 07:05 | PN.DE.MGMTRT ---
Insulin Management
- -
03/06/2024: Diabetes Management Follow up:
Patient presented to the ED on 02/25 with chest pain, NSTEMI, known to diabetes team from previous admission,
PMH: HTN, ICM, CAD s/p PCI, HLD, NAFLD, Chronic LFT elevation, T2DM. On insulin and struggles with glucose control. A1C 8.3%, Cr 1.0, eGFR >60. Prior to admission was taking Farxiga 25 mg daily, metformin 500 mg BID with Lantus 18 units @ HS and
NovoLog 5 units AC. He states he has had diabetes ~ 5 years and his primary doctor cares for his diabetes.
Patient for OR today for CABG
03/05 Premeal glucose 154 to 184, HS 154. Lantus 22 @ HS HELD, FBG 204 03/06.
Will follow post op.
Diabetes History
- -
Type of Diabetes: 2 requiring insulin
Pre-Admission Diabetes Regimen
03/05/24 03/06/24
07:31 05:13
Creatinine 1.1 1.1
Lab Results
Hemoglobin A1c 8.3 % (4.0-5.6) H 02/27/24 06:17
Insulin Pump Settings
IP Diabetes Regimen
03/05/24 03/05/24 03/05/24
07:31 07:37 12:14
Glucose 170 H
POC Glucose 170 H 165 H
03/05/24 03/05/24 03/06/24
17:18 21:33 05:13
Glucose 204 H
POC Glucose 184 H 154 H
Patient Education
[2024-03-06 07:28] LABS: Urine Albumin Trace (Neg - Trace); Urine Bilirubin Negative (Negative); Urine Character Clear (Clear); Urine Color Yellow; Urine Glucose 2+ (Negative); Urine Ketone 2+ (Negative); Urine Leukocyte Negative (Negative); Urine Nitrite Negative (Negative); Urine Occult Blood 1+ (Negative); Urine Urobilinogen Negative (Neg - 1+)
[2024-03-06 07:38] LABS: Urine Bacteria Few (Negative); Urine Mucus Few; Urine Red Blood Cell 0-2 /HPF (0-2); Urine White Cell 0-2 /HPF (0-5)
[2024-03-06 09:13] LABS: B.E. - POC -3.5 mmol/L; Glucose - POC 229 mg/dl (70-99); HCO3 - POC 21 mmol/L (21-29); Hematocrit - POC 46 % PCV (42-52); Hemodilution- POC No; Hemoglobin Calculated - POC 15.7; Ionized Calcium - POC 1.13 mmol/L (1.12-1.27); O2 Saturation %Calculated-POC 99.8 % (92-96); PCO2 - POC 36 mmHg (35-45); PO2 - POC 236 mmHg (80-100); POC Comment BASELINE; Potassium - POC 4.4 mmol/L (3.6-5.0); Sodium - POC 134 mmol/L (135-145); pH - POC 7.38 (7.35-7.45)
[2024-03-06 09:17] LABS: ACT+ - POC 457 Seconds (82-134)
[2024-03-06 09:36] LABS: ACT+ - POC 549 Seconds (82-134)
[2024-03-06 09:40] LABS: B.E. - POC -3.7 mmol/L; Glucose - POC 191 mg/dl (70-99); HCO3 - POC 21 mmol/L (21-29); Hematocrit - POC 45 % PCV (42-52); Hemodilution- POC No; Hemoglobin Calculated - POC 15.4; Ionized Calcium - POC 1.07 mmol/L (1.12-1.27); O2 Saturation %Calculated-POC 99.7 % (92-96); PCO2 - POC 37 mmHg (35-45); PO2 - POC 214 mmHg (80-100); POC Comment POST HEPARIN; Potassium - POC 5.3 mmol/L (3.6-5.0); Sodium - POC 133 mmol/L (135-145); pH - POC 7.37 (7.35-7.45)
[2024-03-06 09:50] LABS: ACT+ - POC 569 Seconds (82-134)
[2024-03-06 09:57] LABS: B.E. - POC 1.2 mmol/L; Glucose - POC 216 mg/dl (70-99); HCO3 - POC 27 mmol/L (21-29); Hematocrit - POC 34 % PCV (42-52); Hemodilution- POC Yes; Hemoglobin Calculated - POC 11.4; Ionized Calcium - POC 0.98 mmol/L (1.12-1.27); PCO2 - POC 46 mmHg (35-45); PO2 - POC 107 mmHg (80-100); POC Comment CPB; Potassium - POC 5.7 mmol/L (3.6-5.0); Sodium - POC 130 mmol/L (135-145); pH - POC 7.38 (7.35-7.45)
[2024-03-06 10:06] LABS: ACT+ - POC 539 Seconds (82-134)
[2024-03-06 10:26] LABS: B.E. - POC -0.8 mmol/L; Glucose - POC 188 mg/dl (70-99); HCO3 - POC 24 mmol/L (21-29); Hematocrit - POC 34 % PCV (42-52); Hemodilution- POC Yes; Hemoglobin Calculated - POC 11.5; Ionized Calcium - POC 1.01 mmol/L (1.12-1.27); O2 Saturation %Calculated-POC 99.9 % (92-96); PCO2 - POC 41 mmHg (35-45); PO2 - POC 268 mmHg (80-100); POC Comment CPB; Potassium - POC 5.1 mmol/L (3.6-5.0); Sodium - POC 131 mmol/L (135-145); pH - POC 7.38 (7.35-7.45)
[2024-03-06 10:35] LABS: ACT+ - POC 522 Seconds (82-134)
[2024-03-06 10:52] LABS: B.E. - POC -1.5 mmol/L; Glucose - POC 172 mg/dl (70-99); HCO3 - POC 23 mmol/L (21-29); Hematocrit - POC 34 % PCV (42-52); Hemodilution- POC Yes; Hemoglobin Calculated - POC 11.6; Ionized Calcium - POC 1.04 mmol/L (1.12-1.27); O2 Saturation %Calculated-POC 99.6 % (92-96); PCO2 - POC 39 mmHg (35-45); PO2 - POC 188 mmHg (80-100); POC Comment CPB; Potassium - POC 4.9 mmol/L (3.6-5.0); Sodium - POC 132 mmol/L (135-145); pH - POC 7.38 (7.35-7.45)
[2024-03-06 10:57] LABS: ACT+ - POC 510 Seconds (82-134)
[2024-03-06 11:18] LABS: ACT+ - POC 536 Seconds (82-134)
[2024-03-06 11:18] LABS: B.E. - POC 0.1 mmol/L; Glucose - POC 177 mg/dl (70-99); HCO3 - POC 26 mmol/L (21-29); Hematocrit - POC 37 % PCV (42-52); Hemodilution- POC Yes; Hemoglobin Calculated - POC 12.7; Ionized Calcium - POC 1.06 mmol/L (1.12-1.27); O2 Saturation %Calculated-POC 99.7 % (92-96); PCO2 - POC 43 mmHg (35-45); PO2 - POC 206 mmHg (80-100); POC Comment WARM; Potassium - POC 4.7 mmol/L (3.6-5.0); Sodium - POC 133 mmol/L (135-145); pH - POC 7.38 (7.35-7.45)
[2024-03-06 11:43] LABS: Glucose - POC 169 mg/dl (70-99); HCO3 - POC 24 mmol/L (21-29); Hematocrit - POC 37 % PCV (42-52); Hemodilution- POC Yes; Hemoglobin Calculated - POC 12.6; Ionized Calcium - POC 1.05 mmol/L (1.12-1.27); O2 Saturation %Calculated-POC 99.8 % (92-96); PCO2 - POC 40 mmHg (35-45); PO2 - POC 222 mmHg (80-100); POC Comment WARM; Potassium - POC 4.4 mmol/L (3.6-5.0); Sodium - POC 133 mmol/L (135-145); pH - POC 7.39 (7.35-7.45)
--- NOTE | 2024-03-06 11:46 | CM ---
Patient in OR today for CABG procedure.
Reviewed initial clinical information. Pt. resides in a private, [address] [place] [address] w/ 4 [address]. Functionally, patient is indep. w/ ADLs, mobility. Antic. DC to home w/ CT Transitional Care RN.
CM to follow.
[2024-03-06 11:48] LABS: ACT+ - POC 104 Seconds (82-134)
[2024-03-06 12:09] LABS: B.E. - POC -2.3 mmol/L; Glucose - POC 120 mg/dl (70-99); HCO3 - POC 23 mmol/L (21-29); Hematocrit - POC 34 % PCV (42-52); Hemodilution- POC Yes; Hemoglobin Calculated - POC 11.5; Ionized Calcium - POC 1.24 mmol/L (1.12-1.27); O2 Saturation %Calculated-POC 99.9 % (92-96); PCO2 - POC 42 mmHg (35-45); PO2 - POC 293 mmHg (80-100); POC Comment POST; Sodium - POC 137 mmol/L (135-145); pH - POC 7.35 (7.35-7.45)
--- NOTE | 2024-03-06 12:21 | W.CVOR.SURPR ---
CVOR Surgeon Immed Pre Op
-
I have examined this patient prior to performance of the scheduled procedure.
The patient's condition is unchanged from the time of the dictated/written History and
Physical and the patient is able to undergo the scheduled procedure.
--- NOTE | 2024-03-06 12:22 | W.IMMPOSTOP ---
Addendum entered and electronically signed by Maxwell Cazares MD 03/06/24 14:25:
[id number]
Original Note:
Surgical Immed Post Op Note
-
CARDIAC SURGERY OPERATIVE NOTE:
Preoperative Dx:
MVCAD
Postoperative Dx:
Same
Procedures:
1) Median sternotomy
2) Takedown of JOSE (narrow pedicle)
3) Endoscopic harvest/prep of RLE GSV
4) CABG x 2 (JOSE to LAD and GSV to RPDA)
Surgeon:
Maxwell Cazares M.D.
[employer] Supervisor:
Richard Rodrigues P.A.-C.; endoscopic harvest/prep of RLE GSV; social service assistant throughout; closure
Anesthesia:
Myron Gregory M.D. and Lonnie Bajwa, C.R.N.A.
Perfusion:
Almaz Green C.C.P.; XC: 77min, CPB: 121min
Findings:
JOSE was a healthy appearing conduit w/ ELD 2.75mm, very brisk blood flow
GSV was a healthy appearing conduit w/ ELD 3.25mm
LAD was obscured along its entire length requiring extensive dissection to identify. The great cardiac vein was mobilized and retracted medially. The LAD was identified in its proximal midpoint under approximately 2.25cm of epicardial adipose and
approximately 1-2mm of myocardium. It was a good sized vessel at this location w/ estimated luminal diameter of 3.00mm w/ normal kidd.
PDA was visible on the epicardial surface w/ scattered calcifications. It was a better quality target than anticipated. ELD 2.25mm at proximal third anastomotic site.
RPLBs 1&2 were both visible on the epicardial surface, but were diminutive in size. Both of these vessels were cleared w/ a round blade & deemed too small to accommodate bypass.
Excellent flow in both grafts on intraoperative transit-time U/S flow probe assessment
Pre-MOISE: LVEF 25%; severe anterior and septal hypokinesis; no sig VHD
Post-MOISE: LVEF 30-35% on dobutamine 3; slightly improved severe anterior and septal hypokinesis; no sig VHD
Complications:
None
Transfusions:
None
Condition:
101 sinus w/ isoelectric STs (0.1/0.2); 98/69. CVP 16. CO/CI: via echo: 5.5/2.6
GTTS: dobutamine 3, levophed 4, precedex 0.5, insulin 5
Stable/guarded to CVICU
[2024-03-06] MEDS: NEURONTIN PO ×2 (12:33→17:18)
[2024-03-06] MEDS: NOVOLOG FLEXPEN SC ×4 (12:33→17:38)
[2024-03-06] MEDS: TYLENOL PO (12:34)
[2024-03-06] MEDS: NOVOLOG FLEXPEN-MODERATE RESISTANCE SC ×2 (12:36)
[2024-03-06] MEDS: ASPIR LOW (ENTERIC COATED) PO (12:36)
[2024-03-06] MEDS: TOPROL XL PO (12:37)
[2024-03-06] MEDS: LR 250 ML IV ×4 (12:57→17:20)
[2024-03-06] MEDS: NSS 500 IV (12:58)
[2024-03-06] MEDS: ANCEF 10 IV ×2 (13:01)
[2024-03-06 13:12] LABS: HCO3 24.3 mmol/L (21-28); Ionized Calcium 1.17 mMOL/L (1.15-1.33); O2 Saturation % 98.3 % (94-98); O2 Therapy VENT; PCO2 42 mmHg (35-48); PO2 98 mmHg (83-108); Potassium 4.4 mMOL/L (3.5-5.1); Sodium 132 mMOL/L (136-145); pH 7.37 (7.35-7.45)
[2024-03-06 13:13] LABS: Glucose - Point of Care 114 mg/dl (70-99)
[2024-03-06 13:16] LABS: Hematocrit 33.6 % (39.0-52.0); Hemoglobin 12.1 g/dL (13.0-18.0); Platelet Count 95 10^3/uL (130-400)
[2024-03-06 13:18] LABS: INR 1.56; PT 18.8 Sec (11.4-14.6)
[2024-03-06 13:19] LABS: APTT 35.9 Sec (23.4-35.0)
--- NOTE | 2024-03-06 13:35 | PTCARENOTE ---
Received pt from CVOR @1300. Pt is intubated and sedated. Precedex, Levo, dobut and insulin. RUCHI 3. NSR to Sinus tach on monitor. A-line zeroed and calibrated, pulses palpable, No edema noted on extremities. ETT size 8. 23 at the lip. FIO2@60%
POX98% lungs clear, diminished bi-laterally. CtX4, draining red fluid WNL. IJ cordis to KVO, R PVA 20g. Hypoactive BS. abdomen soft and flat. Forman intact, draining clear, yellow urine WNL.
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
[2024-03-06] MEDS: CALCIUM CHLORIDE 10% SYRINGE 50 MG IV (13:56)
[2024-03-06] MEDS: CALCIUM CHLORIDE 10% SYRINGE 50 ML IV (13:56)
[2024-03-06 13:57] LABS: Blood Urea Nitrogen 18 mg/dl (9-20); Estimated Creatinine Clearance 91 ml/min; Glucose 105 mg/dl (70-99); Magnesium 3.3 mg/dl (1.6-2.3)
[2024-03-06 14:04] LABS: Glucose - Point of Care 156 mg/dl (70-99)
[2024-03-06] MEDS: DILAUDID 0.5 MG IV (14:08)
--- NOTE | 2024-03-06 14:15 | PTCARENOTE ---
VS liable. B/p's 80's/50's. LR bolus given 250ml x3 CTNP Janeth notified.
--- NOTE | 2024-03-06 14:17 | W.PN.CARDCBS ---
Addendum entered and electronically signed by Bernardo Pelletier MD 03/06/24 16:45:
I saw and examined the patient.
The Project Manager Interior Design's note was reviewed and I agree with the note.
Comment:
GEN: No distress, sedated
HEENT: supple, anicteric, mmm, ET tube
LUNGS: CTA, no wheezes/rales
CV: Reg, S1/S2, + rub
ABD: soft, BS+, NT/ND
EXT: No edema
NEURO: unable to assess
SKIN: No rash
plan:
Overall doing well. Wean Levophed/Cardene
wean to extubate
EKG does have diffuse ST elevation in predominantly the anterior leads. He also had this preoperatively.
Clinically though doing well. Will repeat EKG in AM. He does have a rub on exam.
Continue aspirin and Plavix
Original Note:
Today's Communication / Plan
-
Wean sedation with anticipation of extubation later today
Continue to monitor on telemetry
Wean drips as able
Impression / Plan
-
PCP: Marli Mojica MD
CDY: Blane Stewart MD
IMPRESSION:
Presented 02/25/2024 with NSTEMI to [facility]
CAD
MVCAD on cath 02/26/24
Late presentation NSTEMI w/prox LAD PCI (07/13/22)
Prior RCA PCI (2021)
s/p CABG x 2 (LEE to LAD, SVG to RPDA) 03/06/2024
Ischemic Cardiomyopathy, EF 20-25%
Chronic HFrEF
HTN
HLD
DM, poorly controlled
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
Peripheral neuropathy
Non alcoholic fatty liver disease (NAFLD).
Chronic LFT elevation
Medication noncompliance
Cardiac catheterization 02/26/2024: LM: Normal. LAD: Ulcerated 95% ostial stenosis just proximal to previously placed proximal stent. Patent proximal to mid LAD stent. Diagonal branch ostial disease with normal distal flow.: Ramus: Lateral distal
branch 50% stenosis. Left circumflex: Patent. RCA patent mid RCA stent. Ostial proximal RPDA stenosis, diffuse mid 50 to 60% stenosis. Ostial PLV 60% stenosis. LVG: Mild to moderate anterolateral hypokinesis. Mild inferoapical hypokinesis. LV
systolic dysfunction estimated EF 40%
Echo 09/19/23- moderate LV systolic dysfunction, EF 35-40%, mod CLVH, apical DK, inferior/anterior/entire inf septum, mid/ap ant septum and apical lateral segment are HK.
Carotid duplex 02/27/2024: Less than 50% bilateral ICA stenosis
PLAN:
-He presented to [facility] as NSTEMI on 02/25/24. Transferred to [facility] for cardiac catheterization which showed multivessel obstructive disease.
-s/p CABG x 2 (LEE to LAD, SVG to RPDA) 03/06/2024
-Patient seen immediately postop. Remains intubated and sedated but waking up at times.
-Currently on dobutamine mcg/kg/min and Levophed 8 mcg/min. Wean as tolerated
-Postop MOISE EF 20 to 25% with mid apical, anteroseptal akinesis, mild MR
-Postop hemoglobin 12.1
-Postop EKG sinus tachycardia with evidence of old anteroseptal infarct
-Postop EKG shows mild bibasilar atelectasis
-Cardiac rub noted likely secondary to indwelling chest tubes
-Eventual resumption of GDMT for ICM with beta-swati, BERNICE/ARB, Aldactone, Farxiga
-Hemoglobin A1c 8.3%. needs improved control, appreciate diabetic OR FIRST ASSIST REGISTERED NURSE mgmt
-Lipids 02/27/2024 TC 158, HDL 41, LDL 72, triglycerides 226. Continue high intensity statin. Consider PCSK9 inhibitor as outpatient if LDL remains suboptimally controlled
d/w CTS PA
HPI 02/26/24:
Patient is a 53 y/o white male, H sig for moderate ischemic cardiomyopathy after late presentation [place] (he refused care at first) and ultimately needed LAD stent (06/2022), prior RCA stenting in 2021. He has been feeling well until 02/24, when he
woke up with chest pain and was intermittent throughout the day. Worse with any activity. Eventually agreed to come to ER and ECG was fine but enzymes showed acute NSTEMI pattern. He is taking aspirin and Plavix. IV and oral nitrates are giving him
a headache. No recent illness or other changes. On insulin and struggles with glucose control. Chest pain free overnight.
Peak HS troponin 642 with peak CK 334/MB 36.
Progress Note - Property And Supply Officer
Subjective
Date of Service: March 06, 2024
Patient seen and examined immediately postoperatively. Patient intubated and sedated. Moving arms occasionally
Objective
Labs:
03/06/24 12:49
Labs
Hgb 12.1 g/dL (13.0-18.0) L D 03/06/24 12:49
Hct 33.6 % (39.0-52.0) L 03/06/24 12:49
Plt Count 95 10^3/uL (130-400) L D 03/06/24 12:49
PT 18.8 Sec (11.4-14.6) H 03/06/24 12:49
INR 1.56 03/06/24 12:49
APTT 35.9 Sec (23.4-35.0) H 03/06/24 12:49
Sodium 133 mmol/L (135-145) L 03/06/24 05:13
Potassium 5.4 mmol/L (3.5-5.1) H 03/06/24 05:13
BUN 18 mg/dl (9-20) 03/06/24 12:49
Creatinine 1.1 mg/dL (0.7-1.3) 03/06/24 12:49
Glucose 105 mg/dl (70-99) H 03/06/24 12:49
Vital Signs and I&O:
Vital Signs
Temp Pulse Resp BP Pulse Ox
98.6 F 92 16 126/87 98
03/06/24 13:00 03/06/24 13:00 03/06/24 13:00 03/06/24 05:40 03/06/24 13:33
Vital Signs
Temp Pulse Resp BP Pulse Ox
98.6 F 92 16 126/87 98
03/06/24 13:00 03/06/24 13:00 03/06/24 13:00 03/06/24 05:40 03/06/24 13:33
Intake & Output
03/04/24 03/05/24 03/06/24 03/07/24
06:59 06:59 06:59 06:59
Intake Total 1892 605.9 / 605.9
Output Total 200 / 200 1470 / 1470
Balance 1892 -200 / -200 -864.1 / -864.1
Physical Exam
Physical Exam
GEN: Intubated, sedated
HEENT: supple, anicteric, mmm
LUNGS: Faint crackles at bases, no wheezes/rales;
CV: Reg, mildly tachycardic, positive rub
ABD: soft, BS+, NT/ND
EXT: No edema, clubbing or cyanosis
NEURO: Unable to assess, sedated and intubated
SKIN: No rash, warm, dry, pink
[2024-03-06 14:32] LABS: Mixed Venous O2 Saturation 63.5 %
[2024-03-06] MEDS: ZOFRAN 4 MG IV (15:09)
[2024-03-06 15:10] LABS: Glucose - Point of Care 153 mg/dl (70-99)
[2024-03-06] MEDS: OFIRMEV 100 IV (15:22)
--- NOTE | 2024-03-06 15:27 | PTCARENOTE ---
1500 pt placed on CPAP trial. Awake, able to follow commands, initiated ABG protocol.
[2024-03-06 15:50] LABS: B.E. -2.2 mmol/L; HCO3 23.7 mmol/L (21-28); Ionized Calcium 1.38 mMOL/L (1.15-1.33); O2 Saturation % 98.4 % (94-98); PCO2 44 mmHg (35-48); PO2 90 mmHg (83-108); Sodium 130 mMOL/L (136-145); pH 7.34 (7.35-7.45)
--- NOTE | 2024-03-06 16:00 | PTCARENOTE ---
1600 - VSS. Pt in sinus tach. HR 103, B/P: 95/68. Pt extubated, tolerated extubation. On 6L O2, POX: 99%. Pt drowsy, oriented to name, , location with no neuro deficits noted. Plan of care discussed with pt. Pt resting in bed.
[2024-03-06 16:08] LABS: Glucose - Point of Care 157 mg/dl (70-99)
--- NOTE | 2024-03-06 16:43 | RESPNOTE ---
pt extubated at 1600 to 6lpm nasal cannula. 02 sats of 98% noted
[2024-03-06 17:15] LABS: Glucose - Point of Care 160 mg/dl (70-99)
[2024-03-06 17:17] LABS: Hematocrit 32.1 % (39.0-52.0); Hemoglobin 11.6 g/dL (13.0-18.0); Platelet Count 164 10^3/uL (130-400)
[2024-03-06] MEDS: PACERONE PO (17:18)
[2024-03-06] MEDS: LR 500 IV (17:26)
[2024-03-06] MEDS: ANCEF 5 IV (18:11)
[2024-03-06] MEDS: LOW STRENGTH ASPIRIN 81 MG PO (18:11)
[2024-03-06 19:11] LABS: Glucose - Point of Care 176 mg/dl (70-99)
[2024-03-06] MEDS: SENOKOT-S 1 TABLET PO (20:08)
--- NOTE | 2024-03-06 20:14 | PTCARENOTE ---
VSS, NSR on monitor with occasional Sinus tachy. B/P 102/71, HR 99. POX 98% on 4L NC. I/S:500-750. Encouraged use of I/S. Pt resting in bed. Nursing assessment unchanged from prior.
[2024-03-06 21:05] LABS: Glucose - Point of Care 147 mg/dl (70-99)
[2024-03-06] MEDS: ROXICODONE 5 MG PO (21:12)
[2024-03-06] MEDS: TYLENOL 1000 MG PO (21:13)
[2024-03-06 21:14] LABS: Mixed Venous O2 Saturation 61.5 %
[2024-03-06] MEDS: NEURONTIN 100 MG PO (21:15)
[2024-03-06] MEDS: PACERONE 200 MG PO (21:15)
[2024-03-06] MEDS: LEVOPHED 250 IV (22:21)
[2024-03-06 22:53] LABS: Glucose - Point of Care 117 mg/dl (70-99)
--- NOTE | 2024-03-06 23:00 | PTCARENOTE ---
assumed care of pt from previous RN. pt A&Ox4, bedrest s/p CABG. R IJ cordis w/ SLIC. L radial a-line. all lines leveled, zeroed, flushed. ST on tele-monitor. POX 98% on 2 L NC. CTx4 (mediastinal x2, R & L pleural) to -20cm wall suction, draining
sanguineous drainage. CT drainage WNL. abd s/n, hypoactive BS. shah catheter draining clear, yellow urine. all surgical sites stable, CDI. PIV intact. see worklist for complete nursing assessment, interventions, VS, and I&Os.
[2024-03-07] VITALS (25 sets, daily range): BP systolic 66–116; BP diastolic 50–95; PULSE 127; BMI 31.8
[2024-03-07 00:11] LABS: Glucose - Point of Care 121 mg/dl (70-99)
[2024-03-07 01:11] LABS: Glucose - Point of Care 114 mg/dl (70-99)
[2024-03-07] MEDS: ANCEF 5 IV ×2 (02:17→10:58)
[2024-03-07 02:18] LABS: Glucose - Point of Care 115 mg/dl (70-99)
--- NOTE | 2024-03-07 02:29 | W.PN.CT ---
Addendum entered and electronically signed by Maxwell Cazares MD 03/07/24 15:22:
I saw and examined the patient.
The PA's note was reviewed and I agree with the note.
Comment:
Doing reasonably well status post coronary artery bypass grafting x 2, postop day #1 today
Patient out of bed to chair this morning, dobutamine had been weaned from 3 down to 1 secondary to sinus tachycardia in the 120s, maps remain reasonable
Patient with decreased mixed venous O2, added milrinone. Echocardiogram obtained without evidence of effusion with LVEF at 20%
Continue inotropic supportive care with plan for slow wean over the next few days
Maintain Cordis maintain Shah maintain chest tubes
Out of bed/I-S
Original Note:
Today's Communication / Plan
-
Extubated at 5pm�
Current drips: insulin, Dobutamine @ 2, and levophed weaning off��
Received 1.5 liter of LR post op��
Wean off O2 at as tolerated (Currently 2l NC)�
I/O =�2089 in shah
DC jono and [place] catheter
Considered shah
Maintain Cordis�
Monitor chest tube drainage: med =165/110 275 pleural R/L�=�285/325
Cont. current meds (ASA, Amiodarone, BB, Zetia, Plavix)�
Encourage use of IS�
OOB into chair/Ambulate�
Assessment / Plan
-
9 CABG*2 (LEE To LAD) (SVG to PDA); By Guadalupe Cazares On 03/06/24 POD 1
Assessment:
Presented 02/25/2024 with NSTEMI to [facility]
CAD
MVCAD on cath 02/26/24
Late presentation NSTEMI w/prox LAD PCI (07/13/22)
Prior RCA PCI (2021)
Ischemic Cardiomyopathy, EF 35-40%
Chronic systolic HFrEF
HTN
HLD
DM, poorly controlled
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
Peripheral neuropathy
Non alcoholic fatty liver disease (NAFLD).
Chronic LFT elevation
Medication noncompliance
Subjective
Procedure
03/06 CABG*2 (LEE To LAD) (SVG to PDA); By Guadalupe Cazares On 03/06/24 POD 1�
-
Date of Service: March 07, 2024
Objective Data
-
PT 18.8 Sec (11.4-14.6) H 03/06/24 12:49
INR 1.56 03/06/24 12:49
APTT 35.9 Sec (23.4-35.0) H 03/06/24 12:49
Vital Signs
Vital Signs
Temp Pulse Resp BP Pulse Ox
99.6 F 113 16 93/72 96
03/07/24 02:00 03/07/24 02:15 03/07/24 02:15 03/07/24 02:00 03/07/24 02:15
CT Intake/Output/Weight
03/06/24 03/06/24 03/07/24
06:59 18:59 06:59
Intake Total 1903.0 / 2372.1 469.1 / 2372.1
Output Total 2250 / 2600 350 / 2600
Balance -347.0 / -227.9 119.1 / -227.9
SaO2: 96
Physical Exam
-
General: Awake
Cardiovascular: Regular rate & rhythm and Rub
Respiratory: Clear
Sternum: Stable
Incision: Clean, Dry and Intact
Extremities: Edema +1
--- NOTE | 2024-03-07 04:00 | PTCARENOTE ---
assessment remains unchanged. VSS. AM labs collected and sent. levophed weaned off.
[2024-03-07 04:09] LABS: Glucose - Point of Care 92 mg/dl (70-99)
[2024-03-07 04:18] LABS: Mixed Venous O2 Saturation 62.1 %
[2024-03-07 04:27] LABS: Hemoglobin 11.7 g/dL (13.0-18.0); Mean Corp Hgb Conc. 35.5 g/dL (33.0-37.0); Mean Corpuscular Hgb 29.3 pg (27.0-31.0); Mean Corpuscular Volume 82.5 fL (80.0-94.0); Mean Platelet Volume 9.9 fL (7.4-10.4); Platelet Count 145 10^3/uL (130-400); Red Cell Dist. Width 12.8 % (11.5-14.5); White Blood Cell Count 18.9 10^3/uL (4.8-10.8)
[2024-03-07] MEDS: NOVOLIN R INSULIN INFUSION 100 IV ×2 (04:40→17:17)
[2024-03-07 04:57] LABS: Blood Urea Nitrogen 22 mg/dl (9-20); Calcium 8.7 mg/dl (8.4-10.2); Carbon Dioxide 25 mmol/L (22-30); Chloride 102 mmol/L (98-107); Estimated Creatinine Clearance 100 ml/min; Glucose 87 mg/dl (70-99); Magnesium 2.2 mg/dl (1.6-2.3); Potassium 4.8 mmol/L (3.5-5.1); Sodium 135 mmol/L (135-145); eGFR > 60.00
[2024-03-07] MEDS: FLEXERIL 5 MG PO (05:50)
[2024-03-07] MEDS: TYLENOL 1000 MG PO ×3 (05:50→22:23)
[2024-03-07 06:03] LABS: Glucose - Point of Care 115 mg/dl (70-99)
--- NOTE | 2024-03-07 07:30 | PTCARENOTE ---
Assumed care of Patient from slot shift manager RN. AAO x 3, drowsy, but appropriate. ST on monitor 120's. Loud rub noted on exam. RA 93-98%. Using IS with encouragement. Chest tubes x 4 to - 20 cm suction. No air leak or crepitus noted. Abdomen
soft non tender, denies nausea. Due to void, denies urge at present. Surgical sites c,d,i. Pulses weakly palpable. Drips infusing as follows: Insulin per glycemic protocol. Dobutamine. Plan for day discussed.
[2024-03-07 08:04] LABS: Glucose - Point of Care 133 mg/dl (70-99)
--- NOTE | 2024-03-07 08:08 | PN.DE.MGMTRT ---
Insulin Management
- -
03/07/2024: Diabetes Management Follow up:
Patient presented to the ED on 02/25 with chest pain, NSTEMI, known to diabetes team from previous admission,
PMH: HTN, ICM, CAD s/p PCI, HLD, NAFLD, Chronic LFT elevation, T2DM. On insulin and struggles with glucose control. A1C 8.3%, Cr 1.0, eGFR >60. Prior to admission was taking Farxiga 25 mg daily, metformin 500 mg BID with Lantus 18 units @ HS and
NovoLog 5 units AC. He states he has had diabetes ~ 5 years and his primary doctor cares for his diabetes.
03/07 POD 1 s/p CABG x 2. Awake alert and oriented. Glycemic protocol insulin infusion @ 3.5 units per hour. Will continue today and assess for readiness to transition to subcutaneous insulin in AM.
Will follow.
Diabetes History
- -
Type of Diabetes: 2 requiring insulin
Pre-Admission Diabetes Regimen
03/06/24 03/07/24
12:49 04:04
Creatinine 1.1 1.0
Lab Results
Hemoglobin A1c 8.3 % (4.0-5.6) H 02/27/24 06:17
Insulin Pump Settings
IP Diabetes Regimen
03/06/24 03/06/24 03/06/24
12:49 12:58 14:03
Glucose 105 H
POC Glucose 114 H 156 H
03/06/24 03/06/24 03/06/24
15:06 16:07 17:14
Glucose
POC Glucose 153 H 157 H 160 H
03/06/24 03/06/24 03/06/24
19:09 21:04 22:52
Glucose
POC Glucose 176 H 147 H 117 H
03/07/24 03/07/24 03/07/24
00:06 01:07 02:13
Glucose
POC Glucose 121 H 114 H 115 H
03/07/24 03/07/24 03/07/24
04:02 04:04 06:01
Glucose 87
POC Glucose 92 115 H
03/07/24
08:02
Glucose
POC Glucose 133 H
Meal type: Lunch
Patient Education
[2024-03-07 08:10] LABS: Mixed Venous O2 Saturation 48.1 %
[2024-03-07] MEDS: PACERONE 200 MG PO ×3 (08:11→22:23)
[2024-03-07] MEDS: PLAVIX 75 MG PO (08:11)
[2024-03-07] MEDS: MAGNESIUM OXIDE 500 MG PO ×2 (08:11→22:23)
[2024-03-07] MEDS: NOVOLOG FLEXPEN 3 UNITS SC (08:11)
[2024-03-07] MEDS: PROTONIX 40 MG PO (08:11)
[2024-03-07] MEDS: SENOKOT-S 1 TABLET PO ×2 (08:11→22:23)
[2024-03-07] MEDS: NEURONTIN 100 MG PO ×3 (08:11→22:23)
[2024-03-07] MEDS: LOW STRENGTH ASPIRIN 81 MG PO (08:11)
[2024-03-07] MEDS: LIDOCAINE 4% PATCH TOPICAL (08:12)
[2024-03-07] MEDS: BACTROBAN 2% OINTMENT 1 APPLIC NASAL ×2 (08:12→22:23)
[2024-03-07] MEDS: ROXICODONE 5 MG PO ×3 (08:24→22:34)
[2024-03-07] MEDS: LIDOCAINE 4% PATCH 1 PATCH TOPICAL (08:24)
[2024-03-07] MEDS: LR 500 IV ×2 (08:52→18:50)
[2024-03-07 10:00] LABS: Glucose - Point of Care 147 mg/dl (70-99)
[2024-03-07 10:34] LABS: Mixed Venous O2 Saturation 51.3 %
[2024-03-07] MEDS: PRIMACOR 20 MG 100 IV ×2 (11:26→23:08)
--- NOTE | 2024-03-07 11:27 | W.PN.CARDCBS ---
Today's Communication / Plan
-
Continue dobutamine and support hemodynamics
Diurese as able
Supportive postop care
Impression / Plan
-
PCP: Marli Mojica MD
CDY: Blane Stewart MD
IMPRESSION:
Presented 02/25/2024 with NSTEMI to [facility] [address]
CAD
MVCAD on cath 02/26/24
Late presentation NSTEMI w/prox LAD PCI (07/13/22)
Prior RCA PCI (2021)
s/p CABG x 2 (LEE to LAD, SVG to RPDA) 03/06/2024
Ischemic Cardiomyopathy, EF 20-25%
Chronic HFrEF
HTN
HLD
DM, poorly controlled
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
Peripheral neuropathy
Non alcoholic fatty liver disease (NAFLD).
Chronic LFT elevation
Medication noncompliance
Cardiac catheterization 02/26/2024: LM: Normal. LAD: Ulcerated 95% ostial stenosis just proximal to previously placed proximal stent. Patent proximal to mid LAD stent. Diagonal branch ostial disease with normal distal flow.: Ramus: Lateral distal
branch 50% stenosis. Left circumflex: Patent. RCA patent mid RCA stent. Ostial proximal RPDA stenosis, diffuse mid 50 to 60% stenosis. Ostial PLV 60% stenosis. LVG: Mild to moderate anterolateral hypokinesis. Mild inferoapical hypokinesis. LV
systolic dysfunction estimated EF 40%
Echo 09/19/23- moderate LV systolic dysfunction, EF 35-40%, mod CLVH, apical DK, inferior/anterior/entire inf septum, mid/ap ant septum and apical lateral segment are HK.
Carotid duplex 02/27/2024: Less than 50% bilateral ICA stenosis
PLAN:
-He presented to [place] as NSTEMI on 02/25/24. Transferred to [facility] for cardiac catheterization which showed multivessel obstructive disease.
-s/p CABG x 2 (LEE to LAD, SVG to RPDA) 03/06/2024
-Extubated to nasal cannula O2
-On low-dose dobutamine with Levophed weaned off with borderline hemodynamics; may need to increase dobutamine to allow for heart failure optimization and diuresis. Monitor blood pressure/heart rate trends.
-Currently sinus tachycardia; continue to monitor telemetry
-Postop MOISE EF 20 to 25% with mid apical, anteroseptal akinesis, mild MR
-Chest tube management per CT surgery
-Eventual resumption of GDMT for ICM with beta-swati, BERNICE/ARB, Aldactone, Farxiga
-Hemoglobin A1c 8.3%. needs improved control, appreciate diabetic PROPERTY CONSULTANT mgmt
-Lipids 02/27/2024 TC 158, HDL 41, LDL 72, triglycerides 226. Continue high intensity statin. Consider PCSK9 inhibitor as outpatient if LDL remains suboptimally controlled
-Postop supportive care
d/w CTS
HPI 02/26/24:
Patient is a 53 y/o white male, PMH sig for moderate ischemic cardiomyopathy after late presentation NH (he refused care at first) and ultimately needed LAD stent (06/2022), prior RCA stenting in 2021. He has been feeling well until Sun 02/24, when he
woke up with chest pain and was intermittent throughout the day. Worse with any activity. Eventually agreed to come to ER and ECG was fine but enzymes showed acute NSTEMI pattern. He is taking aspirin and Plavix. IV and oral nitrates are giving him
a headache. No recent illness or other changes. On insulin and struggles with glucose control. Chest pain free overnight.
Peak HS troponin 642 with peak CK 334/MB 36.
Progress Note - Retread Builder
Subjective
Date of Service: March 07, 2024
Seen and examined. Patient sitting out of bed to chair and overall feels fatigued but denies distinct symptoms. No angina. No shortness of breath. No dizziness.
Objective
Labs:
03/07/24 04:04
03/07/24 04:04
Labs
Hgb 11.7 g/dL (13.0-18.0) L 03/07/24 04:04
Hct 33.0 % (39.0-52.0) L 03/07/24 04:04
Plt Count 145 10^3/uL (130-400) 03/07/24 04:04
PT 18.8 Sec (11.4-14.6) H 03/06/24 12:49
INR 1.56 03/06/24 12:49
APTT 35.9 Sec (23.4-35.0) H 03/06/24 12:49
Sodium 135 mmol/L (135-145) 03/07/24 04:04
Potassium 4.8 mmol/L (3.5-5.1) 03/07/24 04:04
BUN 22 mg/dl (9-20) H 03/07/24 04:04
Creatinine 1.0 mg/dL (0.7-1.3) 03/07/24 04:04
Glucose 87 mg/dl (70-99) 03/07/24 04:04
Vital Signs and I&O:
Vital Signs
Temp Pulse Resp BP Pulse Ox
98.8 F 121 22 112/81 98
03/07/24 08:00 03/07/24 08:00 03/07/24 08:00 03/07/24 06:04 03/07/24 09:54
Vital Signs
Temp Pulse Resp BP Pulse Ox
98.8 F 121 22 112/81 98
03/07/24 08:00 03/07/24 08:00 03/07/24 08:00 03/07/24 06:04 03/07/24 09:54
Intake & Output
03/05/24 03/06/24 03/07/24 03/08/24
06:59 06:59 06:59 06:59
Intake Total 2473.8 / 2473.8 1262.0 / 1262.0
Output Total 200 / 200 2825 / 2825 20 / 20
Balance -200 / -200 -351.2 / -351.2 1242.0 / 1242.0
Physical Exam
Physical Exam
GEN: Awake alert and oriented sitting out of bed to chair
HEENT: supple, anicteric, mmm
LUNGS: Faint crackles at bases, no wheezes/rales;
CV: Reg, mildly tachycardic, positive rub. Positive chest tubes. Positive Forman.
ABD: soft, BS+, NT/ND
EXT: ++ edema
: Positive Forman.
--- NOTE | 2024-03-07 11:48 | CM ---
CM following for DC planning needs.
Pt. is POD# 1 from CABG.
Attempted to meet with patient but patient was sleeping.
DC plan is for home w/ CT Transitional Care RN.
Will follow.
--- NOTE | 2024-03-07 12:02 | PTCARENOTE ---
Sitting up in chair. Denies complaint at present other than sleepy. VSS. Milrinone infusion initiated as per order. Pt has not voided as of yet, denies urge. Will bladder scan and follow protocol as needed. Using IS to 1250. Remains ST 120's
on monitor. Assessment unchanged otherwise from prior.
--- NOTE | 2024-03-07 13:30 | PTCARENOTE ---
Pt has not voided as of yet post shah removal this am. Denies urge , no pain/pressure with palpation. Bladder scanned for [address] HEALTH PHYSICIST. Will continue to follow
[2024-03-07] MEDS: DILAUDID 0.5 MG IV (13:32)
[2024-03-07 13:41] LABS: Glucose - Point of Care 99 mg/dl (70-99)
[2024-03-07] MEDS: NSS IV (13:45)
[2024-03-07] MEDS: NOVOLOG FLEXPEN SC (13:45)
--- NOTE | 2024-03-07 14:15 | CARDSERVLU ---
Echocardiogram with Lumason completed after protocol screening completed. Allergies verified.
Patent IV site: _Rt Fa____
IV site flushed with 0.9% NaCl pre and post administration.
Diluted bolus method utilized to enhance visualization of ventricular kidd.
Total volume given: __1.5__ mL
Patient tolerated all procedures well without complications.
--- NOTE | 2024-03-07 14:15 | CARDSERVDEF ---
Echocardiogram with Definity completed after protocol screening completed. Allergies verified.
Patent IV site:
IV site flushed with 0.9% NaCl pre and post administration.
Diluted bolus method utilized to enhance visualization of ventricular kidd.
Total volume given: ____ mL
Patient tolerated all procedures well without complications.
[2024-03-07 14:21] LABS: Mixed Venous O2 Saturation 60.3 %
[2024-03-07] MEDS: LR 1000 IV ×2 (14:36→20:44)
--- NOTE | 2024-03-07 15:00 | W.PN.INTV ---
Today's Communication / Plan
Recommendations
Continue dobutamine/milrinone hopefully can be weaned off in the next 24 hours
Monitor sinus tachycardia
Monitor for fevers
Analgesia
Eventual diuresis
Assessment
-
-
Status post coronary artery bypass 03/06/2024
Multivessel coronary artery disease:
Cardiac catheterization 02/26/2024:1: Multivessel obstructive disease involving distal RCA bifurcation disease and the culprit true ostial LAD as described above.
2: Moderate LV systolic dysfunction with normal left regular filling pressures and no significant mitral gravitation.
Postoperative mechanical ventilation
Postoperative anemia
-
Conditions present prior admission:
Hypertension
Hyperlipidemia
Ischemic cardiomyopathy
History of inferior KS status post RCA stent in 2021
Coronary artery disease status post stent to the LAD and RCA in June 2022
Insulin-dependent diabetes
History of nonhealing foot ulcer and osteomyelitis status post great toe amputation in 2019
Nonalcoholic fatty liver disease
Obesity
Assessment and plan:
Postoperative day 1
Remains in sinus tachycardia-unclear if related to pain/anxiety.
Leukocytosis [id number] to monitor
Denies shortness of breath at rest, currently sitting out of bed...
Continue analgesia with narcotic as needed. Monitor respiratory status closely.
Anemia noted-no evidence of acute bleeding
Follow H&H serially
Hemodynamics -remains on dobutamine/milrinone added low-dose
Continue to titrate as necessary, hopefully can be weaned off in the next 24 hours
Normal renal function, adequate urine output.
Electrolytes are balanced
Chest tube with no excessive drainage-no air leak.
Chest x-ray reviewed 03/07/2024: With no pneumothorax or fluid collections. Low lung volumes. Subsegmental atelectasis
Advance diet as tolerated
Head of the bed elevation
Glycemic control per protocol
DVT prophylaxis when safe from the surgical perspective.
Critical care statement: A total of 31 minutes of critical care time was provided for this patient today. This includes management of unstable vital signs, evaluation of the patient at bedside, reviewing the patient's pertinent medical records
including ventilator settings, arterial blood gases, radiographs, microbiology, laboratory evaluations and discussion with primary team, critical care nursing, and respiratory therapy.
Subjective Dataa
Subjective Data
Date of Service:
Date of Service: March 07, 2024
Chief Complaint: Special Services Supervisor Follow Up (Status post coronary artery bypass)
Subjective:
Continues to report some discomfort in the chest
Denies shortness of breath at rest
Feels tired
Denies lightheadedness
Review of Systems
General: Fever (n)
Cardiopulmonary: Dyspnea (none at rest)
GI: Abdominal Pain (n) and Nausea (n)
Neuro: Headache (n)
Objective Data
Data Reviewed
Vital Signs / I&O / Oxygen:
Vital Signs
Temp Pulse Resp BP Pulse Ox
97.9 F 127 20 110/81 97
03/07/24 11:31 03/07/24 11:31 03/07/24 11:31 03/07/24 11:00 03/07/24 12:04
Intake and Output
03/06/24 03/07/24 03/08/24
06:59 06:59 06:59
Intake Total 2473.8 / 2473.8 1298.8 / 1298.8
Output Total 2825 / 2825 40 / 40
Balance -351.2 / -351.2 1258.8 / 1258.8
SaO2 [P-SIMV] 98
SaO2 97
Nasal Cannula flow liters per 2
minute
Physical Exam
General: Comfortable
HEENT: Normocephalic
Cardiovascular: S1-S2
Respiratory: Clear and Chest Tube (To bulb)
GI: Soft
Neurology: Awake, Alert and Oriented
Labs/Micro/Reports
Lab Data
03/07/24 04:04
03/07/24 04:04
Laboratory Results
03/06/24
15:36
pH 7.34 L
pCO2 44
pO2 90
HCO3 23.7
O2 Delivery Level Not Reportable
[2024-03-07 15:04] LABS: Glucose - Point of Care 108 mg/dl (70-99)
--- NOTE | 2024-03-07 15:17 | PTCARENOTE ---
Pleural chest tubes removed per MD order. Pt tolerated w/o issue. Assisted to chair after at patient request. LR @ 100 ml/hr initiated at this time also. Pt pain 2/10 and tolerable at present. HR remains 130's
[2024-03-07 17:02] LABS: Glucose - Point of Care 175 mg/dl (70-99)
[2024-03-07] MEDS: NOVOLOG FLEXPEN 7 UNITS SC (17:05)
[2024-03-07 17:55] LABS: Mixed Venous O2 Saturation 52.1 %
[2024-03-07 17:56] LABS: Hematocrit 33.9 % (39.0-52.0); Hemoglobin 11.7 g/dL (13.0-18.0); Mean Corp Hgb Conc. 34.5 g/dL (33.0-37.0); Mean Corpuscular Hgb 30.3 pg (27.0-31.0); Mean Corpuscular Volume 87.8 fL (80.0-94.0); Mean Platelet Volume 10.2 fL (7.4-10.4); Platelet Count 148 10^3/uL (130-400); Red Blood Cell Count 3.86 10^6/uL (4.70-6.10); Red Cell Dist. Width 12.9 % (11.5-14.5); White Blood Cell Count 20.3 10^3/uL (4.8-10.8)
--- NOTE | 2024-03-07 18:08 | PTCARENOTE ---
Pt remains w/o void post catheter removal this am. Bladder scan rechecked for 190 ml. Assisted oob to chair for dinner at this time. Denies pain at present.
[2024-03-07 18:19] LABS: Blood Urea Nitrogen 29 mg/dl (9-20); Calcium 8.8 mg/dl (8.4-10.2); Carbon Dioxide 27 mmol/L (22-30); Chloride 98 mmol/L (98-107); Estimated Creatinine Clearance 84 ml/min; Glucose 148 mg/dl (70-99); Potassium 4.6 mmol/L (3.5-5.1); Sodium 133 mmol/L (135-145); eGFR > 60.00
[2024-03-07 18:47] LABS: Glucose - Point of Care 169 mg/dl (70-99)
[2024-03-07] MEDS: XYLOCAINE 1% 10 ML INJ (18:50)
--- NOTE | 2024-03-07 18:51 | PTCARENOTE ---
Assisted back to bed, #16 FR latex free shah inserted for critical I/O's per Md request. 500 ml LR bolus administered also at this time. CT HEAD ANIMAL TRAINER in room to place A line. Tolerated w/o issue.
--- NOTE | 2024-03-07 19:30 | W.PN.UPDATE ---
Update Note
Progress Note Update
Radial arterial line placement
A time-out was completed verifying correct patient, procedure, site, patient positioning, and special equipment. Patient was monitored with continuous bedside EKG, blood pressure, pulse ox readings.
Ze's test was performed to ensure adequate perfusion. The patient's left wrist was prepped and draped in sterile fashion.
1% Lidocaine was used to anesthetize the area. Ultrasound was used in real time to localize the radial artery and guide introducer needle into the arterial lumen. The catheter was threaded over the guide wire and the needle was removed with
appropriate pulsatile blood return. The catheter was then secured in place to the skin and a biopatch and sterile dressing applied.
Perfusion to the extremity distal to the point of catheter insertion was checked and found to be unchanged.
--- NOTE | 2024-03-07 20:00 | PTCARENOTE ---
assumed care of pt from previous RN. pt A&Ox4, resting in bed at time of assessment. no c/o pain at this time. R IJ cordis w/ LR at 100 ml/h. L radial a-line. all lines leveled, zeroed, flushed. PIV intact. ST 130-140s w/ occasional PVCs on
tele-monitor. pericardial friction rub on auscultation. POX 98% on 2 L NC. CTx2 (mediastinal x2) to -20cm wall suction. no air leaks noted. abd s/n, round, obese. shah catheter draining clear, yellow urine. all surgical sites stable, CDI. see
worklist for complete nursing assessment, interventions, VS, and I&Os.
[2024-03-07 20:11] LABS: B.E. 0.6 mmol/L; HCO3 24.5 mmol/L (21-28); O2 Saturation % 96.3 % (94-98); PCO2 36 mmHg (35-48); PO2 65 mmHg (83-108); pH 7.44 (7.35-7.45)
[2024-03-07 20:12] LABS: O2 Therapy %Oxygen/Room Air 28
--- NOTE | 2024-03-07 20:36 | W.PN.ANS.POP ---
Anesthesia Post Operative
- Anesthesia Post Op Note
Vital Signs Stable-See Nursing Note: Yes
Airway Patent: Yes
Adequate Pain Control: Yes
Change in Mental Status: No
Current Postoperative Nausea & Vomiting: No
Anesthesia Complications: No
General Anesthetic Recall: No
Unplanned Admission: No
Post Op Hydration Adequate: Yes
[2024-03-07 20:48] LABS: Glucose - Point of Care 116 mg/dl (70-99)
[2024-03-07 23:07] LABS: Glucose - Point of Care 111 mg/dl (70-99)
[2024-03-08] VITALS (38 sets, daily range): BP systolic 86–137; BP diastolic 58–97; PULSE 144; O2SAT 97–98; BMI 32.4
--- NOTE | 2024-03-08 00:15 | PTCARENOTE ---
assessment remains unchanged. ST, rates 140s on tele-monitor. occasional PVCs. POX 97% on 2 L NC. MVO2 collected and sent. milrinone dose adjusted per Dr. Cook. see flowsheet for details. CT drainage WNL.
[2024-03-08 00:20] LABS: Mixed Venous O2 Saturation 75.1 %
--- NOTE | 2024-03-08 01:16 | W.PN.CT ---
Today's Communication / Plan
-
2300 Increased tachycardia overnight from 135 to 153; stopped LR infusion. [address] Cook, plan to trial increase milrinone to 0.3 if blood pressure can tolerate.�0225 Blood pressure unable to tolerate back to 0.25 and urine out
diminished.
Current drips: Milrinone �
Received 500ml bolus for tachycardia/hypotension @ 1830�
Wean off O2 at as tolerated (Currently 2l NC)�
UOP =��250/385 =635
Beta swati held overnight
Renetta and Forman replaced�
Maintain Cordis�
Monitor chest tube drainage: meds *2 =�80/40 =120
Cont. current meds (ASA, Amiodarone, BB, Zetia, Plavix)�
Encourage use of IS�
OOB into chair/Ambulate�
Assessment / Plan
-
CABG*2 (LEE To LAD) (SVG to PDA); By Guadalupe Cazares On 03/06/24 POD 2
Assessment:
Presented 02/25/2024 with NSTEMI to [facility]
CAD
MVCAD on cath 02/26/24
Late presentation NSTEMI w/prox LAD PCI (07/13/22)
Prior RCA PCI (2021)
Ischemic Cardiomyopathy, EF 35-40%
Chronic systolic HFrEF
HTN
HLD
DM, poorly controlled
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
Peripheral neuropathy
Non alcoholic fatty liver disease (NAFLD).
Chronic LFT elevation
Medication noncompliance
Subjective
Procedure
03/06 CABG*2 (LEE To LAD) (SVG to PDA); By Guadalupe Cazares On 03/06/24 POD 2�
-
Date of Service: March 08, 2024
Objective Data
-
PT 18.8 Sec (11.4-14.6) H 03/06/24 12:49
INR 1.56 03/06/24 12:49
APTT 35.9 Sec (23.4-35.0) H 03/06/24 12:49
Vital Signs
Vital Signs
Temp Pulse Resp BP Pulse Ox
98.6 F 147 16 100/78 97
03/07/24 20:00 03/08/24 00:00 03/07/24 23:00 03/08/24 00:00 03/08/24 00:[address]
CT Intake/Output/Weight
03/07/24 03/07/24 03/08/24
06:59 18:59 06:59
Intake Total 570.8 / 2473.8 2645.3 / 2935.3 290.0 / 2935.3
Output Total 575 / 2825 380 / 690 310 / 690
Balance -4.2 / -351.2 2265.3 / 2245.3 -20.0 / 2245.3
SaO2: 97
Physical Exam
-
General: Awake
Cardiovascular: Regular rate & rhythm
Respiratory: Clear and Equal
Sternum: Stable
Incision: Clean, Dry and Intact
Extremities: Edema +1
[2024-03-08 01:20] LABS: Glucose - Point of Care 134 mg/dl (70-99)
[2024-03-08 02:19] LABS: Glucose - Point of Care 124 mg/dl (70-99)
[2024-03-08 03:13] LABS: Glucose - Point of Care 97 mg/dl (70-99)
--- NOTE | 2024-03-08 03:15 | PTCARENOTE ---
assessment remains unchanged. AM labs collected ands sent. ST, rates 130s, on tele-monitor. occasional PVCs. POX 98% on 2 L NC. milrinone dose adjusted per CT ECONOMIC HISTORIAN, see flowsheet for details.
[2024-03-08 03:24] LABS: Hematocrit 28.6 % (39.0-52.0); Hemoglobin 10.3 g/dL (13.0-18.0); Mean Corpuscular Hgb 30.1 pg (27.0-31.0); Mean Corpuscular Volume 83.6 fL (80.0-94.0); Mean Platelet Volume 10.2 fL (7.4-10.4); Platelet Count 149 10^3/uL (130-400); Red Blood Cell Count 3.42 10^6/uL (4.70-6.10); White Blood Cell Count 15.2 10^3/uL (4.8-10.8)
[2024-03-08 03:42] LABS: ALT (SGPT) 32 U/L (0-50); AST (SGOT) 76 U/L (17-59); Albumin 2.9 g/dl (3.5-5.0); Alkaline Phosphatase 46 U/L (38-126); Blood Urea Nitrogen 25 mg/dl (9-20); Carbon Dioxide 27 mmol/L (22-30); Chloride 100 mmol/L (98-107); Estimated Creatinine Clearance 91 ml/min; Glucose 92 mg/dl (70-99); Magnesium 2.1 mg/dl (1.6-2.3); Potassium 4.2 mmol/L (3.5-5.1); Sodium 133 mmol/L (135-145); Total Bilirubin 0.7 mg/dl (0.2-1.3); Total Protein 5.3 g/dl (6.3-8.2); eGFR > 60.00
[2024-03-08 04:04] LABS: Glucose - Point of Care 92 mg/dl (70-99)
[2024-03-08 05:01] LABS: Glucose - Point of Care 121 mg/dl (70-99)
[2024-03-08] MEDS: TYLENOL 1000 MG PO ×2 (06:03→21:54)
[2024-03-08 06:09] LABS: Glucose - Point of Care 117 mg/dl (70-99)
[2024-03-08 06:12] LABS: Mixed Venous O2 Saturation 65.7 %
--- NOTE | 2024-03-08 07:39 | PN.DE.MGMTRT ---
Insulin Management
- -
03/08/2024: Diabetes Management F/U:
Patient presented to the ED on 02/25 with chest pain, NSTEMI, known to diabetes team from previous admission,
PMH: HTN, ICM, CAD s/p PCI, HLD, NAFLD, Chronic LFT elevation, T2DM. On insulin and struggles with glucose control. A1C 8.3%, Cr 1.0, eGFR >60. Prior to admission was taking Farxiga 25 mg daily, metformin 500 mg BID with Lantus 18 units @ HS and
NovoLog 5 units AC. He states he has had diabetes ~ 5 years and his primary doctor cares for his diabetes.
Pt awake, A/O x3, resting up in bed, POD #2 s/p CABG x 2. Doing well, able to discuss diabetes mgt.
On Glycemic protocol insulin infusion, Glucose range 92 to 134, requiring 0.8- 6 units of insulin /hr
Will plan to transition to SQ insulin today. Give Lantus 15 units NOW, then drip off in 2 hrs.
Start AC NovoLog 10 units, Lantus 22 units @ HS and Farxiga 10 mg daily. low corrective with meals
Will follow.
Diabetes History
- -
Type of Diabetes: 2 requiring insulin
Pre-Admission Diabetes Regimen
03/07/24 03/08/24
17:40 03:07
Creatinine 1.2 1.1
Lab Results
Hemoglobin A1c 8.3 % (4.0-5.6) H 02/27/24 06:17
Insulin Pump Settings
IP Diabetes Regimen
03/07/24 03/07/24 03/07/24
08:02 09:58 13:36
Glucose
POC Glucose 133 H 147 H 99
03/07/24 03/07/24 03/07/24
15:02 17:01 17:40
Glucose 148 H
POC Glucose 108 H 175 H
03/07/24 03/07/24 03/07/24
18:46 20:47 23:05
Glucose
POC Glucose 169 H 116 H 111 H
03/08/24 03/08/24 03/08/24
01:13 02:14 03:06
Glucose
POC Glucose 134 H 124 H 97
03/08/24 03/08/24 03/08/24
03:07 04:03 04:59
Glucose 92
POC Glucose 92 121 H
03/08/24
06:02
Glucose
POC Glucose 117 H
Meal type: Breakfast
Amount consumed: 30%
Patient Education
[2024-03-08 08:06] LABS: Glucose - Point of Care 112 mg/dl (70-99)
[2024-03-08] MEDS: CALCIUM CHLORIDE 10% SYRINGE 60 MG IV (08:08)
[2024-03-08] MEDS: FLEXBUMIN 100 IV ×3 (09:01→23:25)
[2024-03-08] MEDS: LIDOCAINE 4% PATCH TOPICAL ×2 (09:03→10:13)
[2024-03-08] MEDS: PLAVIX 75 MG PO (09:04)
[2024-03-08] MEDS: FARXIGA 10 MG PO (09:04)
[2024-03-08] MEDS: PROTONIX 40 MG PO (09:04)
[2024-03-08] MEDS: LOW STRENGTH ASPIRIN 81 MG PO (09:04)
[2024-03-08] MEDS: LANTUS 0.15 UNITS SC (09:04)
[2024-03-08] MEDS: PACERONE 200 MG PO ×3 (09:04→21:54)
[2024-03-08] MEDS: SENOKOT-S PO ×3 (09:04→20:33)
[2024-03-08] MEDS: BACTROBAN 2% OINTMENT 1 APPLIC NASAL ×2 (09:05→21:00)
[2024-03-08] MEDS: MAGNESIUM OXIDE 500 MG PO ×2 (09:05→21:01)
[2024-03-08] MEDS: NEURONTIN 100 MG PO ×3 (09:06→21:54)
[2024-03-08] MEDS: NOVOLOG FLEXPEN SC ×2 (09:34→12:38)
[2024-03-08 10:11] LABS: Glucose - Point of Care 80 mg/dl (70-99)
--- NOTE | 2024-03-08 10:40 | PTCARENOTE ---
Patient received from director field services resting in bed, sleepy but arousable and appropriate. ST via cm, SaO2 @ 95% on 2lnc. RIJ Cordis w/kvo infusing. Mediastinal chest tubes x 2, Y-connected to one pleurevac, to -20cm suction w/no air leak noted. Forman
catheter to gravity. All procedural sites stable. Patient updated to plan of care for the day, in agreement. Assisted oob to commode, then settled to chair. See work list for full assessment, interventions performed, and intravenous infusions and
titrations.
--- NOTE | 2024-03-08 10:56 | W.PN.CARDCBS ---
Today's Communication / Plan
-
Start IV amiodarone for rapid atrial flutter versus atrial tachycardia
Diurese
Support hemodynamics with milrinone and slowly add back goal-directed medical therapy
Supportive postoperative care
Impression / Plan
-
PCP: Marli Mojica MD
CDY: Blane Stewart MD
IMPRESSION:
Presented 02/25/2024 with NSTEMI to [facility]
CAD
MVCAD on cath 02/26/24
Late presentation NSTEMI w/prox LAD PCI (07/13/22)
Prior RCA PCI (2021)
s/p CABG x 2 (LEE to LAD, SVG to RPDA) 03/06/2024
Ischemic Cardiomyopathy, EF 20-25%
Chronic HFrEF
HTN
HLD
DM, poorly controlled
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
Peripheral neuropathy
Non alcoholic fatty liver disease (NAFLD).
Chronic LFT elevation
Medication noncompliance
Cardiac catheterization 02/26/2024: LM: Normal. LAD: Ulcerated 95% ostial stenosis just proximal to previously placed proximal stent. Patent proximal to mid LAD stent. Diagonal branch ostial disease with normal distal flow.: Ramus: Lateral distal
branch 50% stenosis. Left circumflex: Patent. RCA patent mid RCA stent. Ostial proximal RPDA stenosis, diffuse mid 50 to 60% stenosis. Ostial PLV 60% stenosis. LVG: Mild to moderate anterolateral hypokinesis. Mild inferoapical hypokinesis. LV
systolic dysfunction estimated EF 40%
Echo 09/19/23- moderate LV systolic dysfunction, EF 35-40%, mod CLVH, apical DK, inferior/anterior/entire inf septum, mid/ap ant septum and apical lateral segment are HK.
Carotid duplex 02/27/2024: Less than 50% bilateral ICA stenosis
PLAN:
-He presented to [facility] as NSTEMI on 02/25/24. Transferred to [facility] for cardiac catheterization which showed multivessel obstructive disease.
-s/p CABG x 2 (LEE to LAD, SVG to RPDA) 03/06/2024
-History of ischemic cardiomyopathy with preop MOISE EF 25% and postop 30-35% on dobutamine
-Remains volume overloaded with low index now on milrinone drip
-Telemetry with either atypical atrial flutter versus atrial tachycardia with heart rates in the 140s�150s.
-Discussed with CT surgery PA -will start IV amiodarone
-If arrhythmia persist with borderline hemodynamics can consider cardioversion. MOISE IntraOp 03/06/2024 with no left atrial appendage thrombus.
-If arrhythmia persist, consider eventual anticoagulation once chest tubes removed. CHADSVASC score:3
-Continue efforts for diuresis
-Chest tube management per CT surgery
-Eventual resumption of GDMT for ICM with low-dose metoprolol resumed. Farxiga started. Eventual addition of BERNICE/ARB or Entresto. Eventual addition of Aldactone.
-Continue aspirin/Plavix given non-STEMI at presentation
-Hemoglobin A1c 8.3%. needs improved control, appreciate diabetic FORMULA MAKER mgmt
-Lipids 02/27/2024 TC 158, HDL 41, LDL 72, triglycerides 226. Continue high intensity statin. Consider PCSK9 inhibitor as outpatient if LDL remains suboptimally controlled
-Postop supportive care
d/w CTS
HPI 02/26/24:
Patient is a 53 y/o white male, PMH sig for moderate ischemic cardiomyopathy after late presentation ID (he refused care at first) and ultimately needed LAD stent (06/2022), prior RCA stenting in 2021. He has been feeling well until Sun 02/24, when he
woke up with chest pain and was intermittent throughout the day. Worse with any activity. Eventually agreed to come to ER and ECG was fine but enzymes showed acute NSTEMI pattern. He is taking aspirin and Plavix. IV and oral nitrates are giving him
a headache. No recent illness or other changes. On insulin and struggles with glucose control. Chest pain free overnight.
Peak HS troponin 642 with peak CK 334/MB 36.
Progress Note - Rotary Driller Prospecting
Subjective
Date of Service: March 08, 2024
Seen and examined sitting out of bed to chair. Complains of general soreness but denies shortness of breath or chest pain.
Objective
Labs:
03/08/24 03:07
03/08/24 03:07
Labs
Hgb 10.3 g/dL (13.0-18.0) L 03/08/24 03:07
Hct 28.6 % (39.0-52.0) L 03/08/24 03:07
Plt Count 149 10^3/uL (130-400) 03/08/24 03:07
PT 18.8 Sec (11.4-14.6) H 03/06/24 12:49
INR 1.56 03/06/24 12:49
APTT 35.9 Sec (23.4-35.0) H 03/06/24 12:49
Sodium 133 mmol/L (135-145) L 03/08/24 03:07
Potassium 4.2 mmol/L (3.5-5.1) 03/08/24 03:07
BUN 25 mg/dl (9-20) H 03/08/24 03:07
Creatinine 1.1 mg/dL (0.7-1.3) 03/08/24 03:07
Glucose 92 mg/dl (70-99) 03/08/24 03:07
Vital Signs and I&O:
Vital Signs
Temp Pulse Resp BP Pulse Ox
98.7 F 137 15 91/64 96
03/08/24 08:06 03/08/24 10:30 03/08/24 08:06 03/08/24 10:06 03/08/24 10:15
Vital Signs
Temp Pulse Resp BP Pulse Ox
98.7 F 137 15 91/64 96
03/08/24 08:06 03/08/24 10:30 03/08/24 08:06 03/08/24 10:06 03/08/24 10:15
Intake & Output
03/06/24 03/07/24 03/08/24 03/09/24
06:59 06:59 06:59 06:59
Intake Total 2473.8 / 2473.8 3066.5 / 3085.3 321.2 / 321.2
Output Total 2825 / 2825 910 / 970 215 / 215
Balance -351.2 / -351.2 2156.5 / 2115.3 106.2 / 106.2
Physical Exam
Physical Exam
GEN: Awake alert and oriented sitting out of bed to chair
HEENT: supple, anicteric, mmm
LUNGS: Faint crackles at bases, no wheezes/rales;
CV: Reg, mildly tachycardic, positive rub. Positive chest tubes.
ABD: soft, BS+, NT/ND
EXT: ++ edema
--- NOTE | 2024-03-08 11:12 | CM ---
Reviewed chart. Met with Mr. Bautista to review discharge plans. He states is is feeling tired. We reviewed a home visit by the Cardiothoracic Transitional Care Nurse. He is agreeable to a home visit. Prior to admission he resides with his spouse
in a three story home with four steps to enter. He has a full flight of steps to get to bedroom/full bathroom. Prior to admission he was independent with ambulation and adls. He does not have any DME in the home. His family will be available to
assist in his care when he goes home. He does have a prescription plan. Medical work-up in progress. The discharge plan is to return home with his spouse and a home visit by the Cardiothoracic Transitional Care Nurse when medically stable.
[2024-03-08] MEDS: CORDARONE 103 MG IV (11:34)
[2024-03-08] MEDS: CORDARONE 518 MG IV (11:47)
[2024-03-08 12:04] LABS: Glucose - Point of Care 247 mg/dl (70-99)
[2024-03-08 12:14] LABS: Mixed Venous O2 Saturation 60.4 %
[2024-03-08] MEDS: NSS 500 IV (12:34)
[2024-03-08] MEDS: PRIMACOR 20 MG 100 IV (12:58)
[2024-03-08] MEDS: NOVOLOG FLEXPEN-MODERATE RESISTANCE 3 UNITS SC (12:58)
--- NOTE | 2024-03-08 13:07 | W.PN.INTV ---
Today's Communication / Plan
Recommendations
Low-dose milrinone
Amiodarone started
Continue telemetry monitoring
Incentive spirometry
Out of bed when able
Follow chest tube output
Daily chest x-ray
Assessment
-
-
Status post coronary artery bypass 03/06/2024
Multivessel coronary artery disease:
Cardiac catheterization 02/26/2024:1: Multivessel obstructive disease involving distal RCA bifurcation disease and the culprit true ostial LAD as described above.
2: Moderate LV systolic dysfunction with normal left regular filling pressures and no significant mitral gravitation.
Postoperative mechanical ventilation
Postoperative anemia
-
Conditions present prior admission:
Hypertension
Hyperlipidemia
Ischemic cardiomyopathy
History of inferior SC status post RCA stent in 2021
Coronary artery disease status post stent to the LAD and RCA in June 2022
Insulin-dependent diabetes
History of nonhealing foot ulcer and osteomyelitis status post great toe amputation in 2019
Nonalcoholic fatty liver disease
Obesity
Assessment and plan:
Postoperative day 2
Remains tachycardic-possible atrial tachycardia versus atrial fibrillation.
Cardiology correspondence reviewed-amiodarone has been started
-
Leukocytosis [id number]-[id number] to monitor
Denies any cough or phlegm production.
Chest x-ray noted with left lower lobe abnormality likely subsegmental atelectasis
Continue analgesia with narcotic as needed. Monitor respiratory status closely.
Anemia noted-no evidence of acute bleeding
Follow H&H serially
Hemodynamics -low-dose milrinone. Continue to wean down as able.
Renal function is normal
Forman urinary output
Electrolytes are balanced
Chest tube with no excessive drainage-no air leak.
Chest x-ray reviewed 03/08/2024: With no pneumothorax or fluid collections. Low lung volumes. Subsegmental atelectasis
Incentive spirometry
Increase activity as able
Tolerating diet
Head of the bed elevation
Glycemic control per protocol
DVT prophylaxis when safe from the surgical perspective.
Critical care statement: A total of 31 minutes of critical care time was provided for this patient today. This includes management of unstable vital signs, evaluation of the patient at bedside, reviewing the patient's pertinent medical records
including ventilator settings, arterial blood gases, radiographs, microbiology, laboratory evaluations and discussion with primary team, critical care nursing, and respiratory therapy.
Subjective Dataa
Subjective Data
Date of Service:
Date of Service: March 08, 2024
Chief Complaint: [employer] Follow Up (Status post coronary artery bypass)
Subjective:
Continues to report some chest discomfort
No shortness of breath at rest
Significantly tachycardic overnight
Review of Systems
Cardiopulmonary: Dyspnea, Dyspnea on Exertion, Cough (n) and Sputum Production
GI: Abdominal Pain (n)
Objective Data
Data Reviewed
Vital Signs / I&O / Oxygen:
Vital Signs
Temp Pulse Resp BP Pulse Ox
98.8 F 131 14 132/86 99
03/08/24 12:00 03/08/24 13:00 03/08/24 12:00 03/08/24 13:00 03/08/24 12:00
Intake and Output
03/07/24 03/08/24 03/09/24
06:59 06:59 06:59
Intake Total 2473.8 / 2473.8 3066.5 / 3085.3 429.2 / 429.2
Output Total 2825 / 2825 910 / 970 565 / 565
Balance -351.2 / -351.2 2156.5 / 2115.3 -135.8 / -135.8
SaO2 [P-SIMV] 98
SaO2 99
Nasal Cannula flow liters per 2
minute
Physical Exam
General: Comfortable
HEENT: Normocephalic
Cardiovascular: S1-S2 and Other (Tachycardic)
Respiratory: Clear and Chest Tube (To bulb)
GI: Soft
Neurology: Awake, Alert and Oriented
Skin: Warm
Labs/Micro/Reports
Lab Data
03/08/24 03:07
03/08/24 03:07
Laboratory Results
03/07/24
20:00
pH 7.44
pCO2 36
pO2 65 L
HCO3 24.5
O2 Delivery Level %oxygen/room air 28
--- NOTE | 2024-03-08 13:23 | PTCARENOTE ---
Mediastinal chest tubes d/c'd as ordered by this RN and RN assist for suture tie. Patient tolerated well, resting comfortably post.
[2024-03-08] MEDS: TYLENOL PO ×2 (14:42→16:15)
--- NOTE | 2024-03-08 16:14 | PTCARENOTE ---
VS obtained, assessment stable. Patient resting comfortably, at bedside.
[2024-03-08 17:29] LABS: Glucose - Point of Care 140 mg/dl (70-99)
[2024-03-08] MEDS: NOVOLOG FLEXPEN 10 UNITS SC (17:29)
[2024-03-08] MEDS: NOVOLOG FLEXPEN-MODERATE RESISTANCE SC (17:29)
--- NOTE | 2024-03-08 20:45 | PTCARENOTE ---
Patient received OOB in chair. Patient assisted to bed with assist x2. Sternal precautions. Patient A+A+Ox3. No neurological deficits noted. Room air. SpO2 97%. Sinus Tachycardia. Heart rate 120-130's. No c/o chest pain, pressure or
discomfort. Normoactive bowel sounds. No BM. No c/o nausea. No vomiting. Forman catheter - Intact and patent - Light keiko, yellow urine - Outputs as documented. Sternal dressing intact. Chest tube dressing intact. Right groin site intact.
Right knee - Surgical incision - Intact - Open to air. Dorsalis pedis pulses positive via Doppler. Bilateral lower extremity edema. Right I.J. Cordis. CVP 6. Amiodarone gtt 0.5 mg/min (16.7 ml/hr). Milrinone gtt 0.125 mcq/kg/min (3.8 ml/hr).
Patient resting in bed watching television. Assessment as documented.
[2024-03-08 21:51] LABS: Glucose - Point of Care 142 mg/dl (70-99)
[2024-03-08] MEDS: LANTUS 0.22 UNITS SC (21:55)
[2024-03-08] MEDS: TORADOL 15 MG IV (21:56)
[2024-03-08] MEDS: CALCIUM CHLORIDE 10% SYRINGE 1000 MG IV (23:21)
--- NOTE | 2024-03-08 23:45 | PTCARENOTE ---
Patient's oral temperature 101.2 F. Patient with c/o feeling warm. Cool cloth to forehead. Fan at bedside. Tylenol 1,000 mg PO administered. Hypotensive. Left radial arterial line and cuff pressure lower. Calcium chloride 10% syringe 1,000 mg
IV Now administered per PA order. UA collected and sent. Patient A+A+Ox3. Patient with no c/o pain or discomfort. Patient resting in bed watching television. Assessment/Interventions as documented.
[2024-03-08 23:48] LABS: Urine Albumin Trace (Neg - Trace); Urine Bilirubin 1+ (Negative); Urine Character Slightly Cloudy (Clear); Urine Color Amber; Urine Glucose 3+ (Negative); Urine Ketone 2+ (Negative); Urine Leukocyte Trace (Negative); Urine Nitrite Negative (Negative); Urine Occult Blood 3+ (Negative); Urine Urobilinogen 1+ (Neg - 1+)
[2024-03-09] VITALS (26 sets, daily range): BP systolic 81–118; BP diastolic 58–89; PULSE 122; O2SAT 98–100; BMI 31.8
[2024-03-09 00:01] LABS: Urine Bacteria Moderate (Negative); Urine White Cell None Seen /HPF (0-5)
--- NOTE | 2024-03-09 03:35 | W.PN.CT ---
Today's Communication / Plan
-
Plan:
-No major issues overnight. Hemodynamically and neurologically stable
-On Amiodarone gtt for atrial tachycardia, HR currently in sinus tachycardia @ 110 bpm. Also on Primacor @ 0.125 mcg/kg/min
-A-line and Shah intact
-MVO2 off cordis: 61.2%, 24hrs u/o 2315 mL
-Pt noted to be febrile (TM 101.2) last night, likely d/t postop atelectasis as pt admitted to not using IS, resolved after use and with po Tylenol. U/A obtained was negative for UTI
-BP noted to be soft postop
-Consider weaning off of Primacor
-Consider d/c of shah after off Primacor
-Maintain cordis another day
-No temporary PW
-Cont. current meds (ASA, Plavix, Amiodarone, Zetia; BB on hold while on Primacor)
-Hgb A1C 8.3, Diabetes management following, on Novolog, Lantus and Farxiga
-CXR yesterday with ? left basilar atelectasis vs effusion. F/U CXR this AM
-Monitor hyponatremia, 133. Cont. diuresis if BP Permits. Minimize fluid intake
-Encourage use of IS
-Wean off of O2
-OOB into chair/Ambulate
-Home in 1-2 days
Assessment / Plan
-
Assessment:
S/P CABG X 2 (LEE to LAD, SVG to PDA) by Dr. Cazares, 03/06/24, POD#3
Presented 02/25/2024 with NSTEMI to [facility]
CAD
MVCAD on cath 02/26/24
Late presentation NSTEMI w/prox LAD PCI (07/13/22)
Prior RCA PCI (2021)
Ischemic Cardiomyopathy, EF 35-40%
Chronic systolic HFrEF
HTN
HLD
DM, poorly controlled (A1C 8.3)
Class 1 obesity (BMI 32.4)
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
Peripheral neuropathy
Non alcoholic fatty liver disease (NAFLD).
Chronic LFT elevation
Medication noncompliance
-Acute postop blood loss/Anemia (stable without transfusion)
-Acute postop thrombocytopenia (stable without active bleed)
-Acute postop atelectasis/pleural effusion
-Acute postop hypovolemia with subsequent hypervolemia
-Acute postop atrial tachycardia/flutter
-Acute postop hyponatremia, 130
Discussed patient care with: Cardiology, Nursing, Respiratory Therapy, Pharmacy and Care Team
Subjective
Procedure
03/06 CABG*2 (LEE To LAD) (SVG to PDA); By Guadalupe Cazares On 03/06/24 POD 2�
-
Date of Service: March 09, 2024
Pt c/o mild incsional pain, otherwise feels well
Objective Data
-
PT 18.8 Sec (11.4-14.6) H 03/06/24 12:49
INR 1.56 03/06/24 12:49
APTT 35.9 Sec (23.4-35.0) H 03/06/24 12:49
Vital Signs
Vital Signs
Temp Pulse Resp BP Pulse Ox
98.3 F 111 16 92/81 97
03/09/24 00:00 03/09/24 02:30 03/09/24 00:00 03/09/24 02:30 03/09/24 02:30
CT Intake/Output/Weight
03/08/24 03/08/24 03/09/24
06:59 18:59 06:59
Intake Total 421.2 / 3085.3 898.1 / 1482.1 584.0 / 1482.1
Output Total 530 / 970 1365 / 2165 800 / 2165
Balance -108.8 / 2115.3 -466.9 / -682.9 -216.0 / -682.9
SaO2: 97 (2L)
Physical Exam
-
General: Awake, Oriented and AOx3
Cardiovascular: Regular rate & rhythm, No Murmurs, No Rub and No Gallop
Respiratory: Decreased Breath Sounds (at bases, otherwise clear)
Sternum: Stable
Incision: Clean, Dry, Intact and Dressing Intact
Extremities: No Edema
Data Reviewed
-
Lab Results: Results Reviewed
Medications: Active Meds Reviewed
Chest X-Ray: Report Reviewed and Image Reviewed
ECG: Report Reviewed and Image Reviewed
[2024-03-09 03:55] LABS: Mixed Venous O2 Saturation 61.2 %
[2024-03-09 03:59] LABS: Ionized Calcium 1.19 mMOL/L (1.15-1.33)
[2024-03-09 04:12] LABS: Hematocrit 24.7 % (39.0-52.0); Hemoglobin 8.4 g/dL (13.0-18.0); Mean Corpuscular Hgb 29.1 pg (27.0-31.0); Mean Corpuscular Volume 85.5 fL (80.0-94.0); Mean Platelet Volume 10.3 fL (7.4-10.4); Platelet Count 171 10^3/uL (130-400); Red Blood Cell Count 2.89 10^6/uL (4.70-6.10); Red Cell Dist. Width 12.8 % (11.5-14.5); White Blood Cell Count 11.4 10^3/uL (4.8-10.8)
--- NOTE | 2024-03-09 04:30 | PTCARENOTE ---
Patient A+A+Ox3. No neurological deficits noted. No c/o pain or discomfort. AM lab work collected and sent. Patient given CHG bath and linens changed. Chest tube dressing changed. Portable CXR to be completed. OOB to chair in AM. Patient
resting in bed watching television. Right upper arm cuff blood pressure 103/70 (81). Left radial arterial line pressure 90/55 (68). CVP 6. Assessment/Interventions as documented.
[2024-03-09 04:43] LABS: Blood Urea Nitrogen 30 mg/dl (9-20); Calcium 8.9 mg/dl (8.4-10.2); Carbon Dioxide 26 mmol/L (22-30); Chloride 96 mmol/L (98-107); Estimated Creatinine Clearance 92 ml/min; Glucose 161 mg/dl (70-99); Magnesium 2.3 mg/dl (1.6-2.3); Potassium 4.8 mmol/L (3.5-5.1); Sodium 133 mmol/L (135-145); eGFR > 60.00
[2024-03-09] MEDS: TYLENOL PO (05:38)
[2024-03-09 06:47] LABS: Glucose - Point of Care 157 mg/dl (70-99)
[2024-03-09] MEDS: NOVOLOG FLEXPEN 10 UNITS SC ×3 (07:21→17:43)
[2024-03-09] MEDS: NOVOLOG FLEXPEN-MODERATE RESISTANCE 1 UNITS SC ×3 (07:21→17:43)
[2024-03-09] MEDS: PLAVIX 75 MG PO (08:13)
[2024-03-09] MEDS: PACERONE 200 MG PO ×2 (08:13→15:37)
[2024-03-09] MEDS: MAGNESIUM OXIDE 500 MG PO ×2 (08:13→20:08)
[2024-03-09] MEDS: FARXIGA 10 MG PO (08:13)
[2024-03-09] MEDS: LOW STRENGTH ASPIRIN 81 MG PO (08:13)
[2024-03-09] MEDS: NEURONTIN 100 MG PO ×3 (08:13→22:40)
[2024-03-09] MEDS: PROTONIX 40 MG PO (08:13)
[2024-03-09] MEDS: LIDOCAINE 4% PATCH TOPICAL (08:14)
[2024-03-09] MEDS: BACTROBAN 2% OINTMENT 1 APPLIC NASAL ×2 (08:14→20:08)
[2024-03-09] MEDS: SENOKOT-S PO ×2 (08:15→20:09)
--- NOTE | 2024-03-09 08:32 | PTCARENOTE ---
Received pt from mold shifter RN; pt AAOx3 and resting comfortably in chair; Sinus Tachycardia on monitor and VSS; RIJ Cordis, Left A-line all lines leveled and zeroed; Milrinone and Amiodarone infusing see flow sheet for details; Lungs diminished;
IS to 1500; positive bowel sounds; Foramn catheter draining yellow urine; positive radial pulses and present Doppler pulses in lower extremities; +2 generalized edema noted; all surgical sites C/D/I; see nursing documentation for details.
[2024-03-09 10:10] LABS: Mixed Venous O2 Saturation 63.6 %
--- NOTE | 2024-03-09 10:16 | W.PN.CARDCBS ---
Today's Communication / Plan
-
P.o. amiodarone
Follow heart rates
Sinus tachycardia versus ectopic atrial tachycardia
Daily ECG ordered for tomorrow
With an ectopic rhythm could consider oral anticoagulation although do not need to give oral anticoagulation today
Pending on mechanism of arrhythmia can consider MOISE guided cardioversion prior to discharge
Impression / Plan
-
Patient seen and examined
Physical Exam
General: no apparent distress, not acutely ill
Neck: supple. no meningeal signs. normal psoterior pharynx
Heart: s1/s2 regular rate and rhythm, no murmur. equal radial pulses.
Lungs: no acute respiratory distress. clear bilaterally
Abdomen: normal bowel sounds. not tender. no CVAT
Neuro: alert and oriented. no focal neurological deficits
Skin: no rash
Psychiatric: well kept. interactive and cooperative
Extremities: no edema. no calf tenderness. negative homans. good distal pulses
PCP: Marli Mojica MD
CDY: Blane Stewart MD
IMPRESSION:
Presented 02/25/2024 with NSTEMI to [facility]
CAD
MVCAD on cath 02/26/24
Late presentation NSTEMI w/prox LAD PCI (07/13/22)
Prior RCA PCI (2021)
s/p CABG x 2 (LEE to LAD, SVG to RPDA) 03/06/2024
Ischemic Cardiomyopathy, EF 20-25%
Chronic HFrEF
HTN
HLD
DM, poorly controlled
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
Peripheral neuropathy
Non alcoholic fatty liver disease (NAFLD).
Chronic LFT elevation
Medication noncompliance
Cardiac catheterization 02/26/2024: LM: Normal. LAD: Ulcerated 95% ostial stenosis just proximal to previously placed proximal stent. Patent proximal to mid LAD stent. Diagonal branch ostial disease with normal distal flow.: Ramus: Lateral distal
branch 50% stenosis. Left circumflex: Patent. RCA patent mid RCA stent. Ostial proximal RPDA stenosis, diffuse mid 50 to 60% stenosis. Ostial PLV 60% stenosis. LVG: Mild to moderate anterolateral hypokinesis. Mild inferoapical hypokinesis. LV
systolic dysfunction estimated EF 40%
Echo 09/19/23- moderate LV systolic dysfunction, EF 35-40%, mod CLVH, apical DK, inferior/anterior/entire inf septum, mid/ap ant septum and apical lateral segment are HK.
Carotid duplex 02/27/2024: Less than 50% bilateral ICA stenosis
PLAN:
-He presented to [place] as NSTEMI on 02/25/24. Transferred to [facility] for cardiac catheterization which showed multivessel obstructive disease.
-s/p CABG x 2 (LEE to LAD, SVG to RPDA) 03/06/2024
-History of ischemic cardiomyopathy with preop MOISE EF 25% and postop 30-35% on dobutamine
-Remains volume overloaded with low index now on milrinone drip
-Review of his telemetry and all available ECGs suggest mostly sinus tachycardia although his ECG from yesterday with at a heart rate of 145 bpm I cannot rule out a rapid ectopic atrial tachycardia. His metoprolol has been held although given his
cardiomyopathy I would switch him over to Toprol XL 25 mg daily when blood pressure stable. Will follow his heart rates on low-dose amiodarone as his metoprolol is being held and review daily ECG and rates are better in the 120s today. If he
continues to warm down in terms of heart rates would favor sinus tachycardia as his mechanism. Nonetheless can consider MOISE guided cardioversion if his arrhythmias and ectopic atrial rhythm prior to discharge and will follow closely with you. I
suspect he will also respond to low-dose metoprolol once able to tolerate from blood pressure perspective. Can consider eventual oral anticoagulation although I will follow his heart rates and discussed with CT surgery team on Monday
-Discussed with CT surgery PA can DC IV amiodarone
-If arrhythmia persist with borderline hemodynamics can consider cardioversion. MOISE IntraOp 03/06/2024 with no left atrial appendage thrombus.
-If arrhythmia persist, consider eventual anticoagulation once chest tubes removed. CHADSVASC score:3
-Continue efforts for diuresis
-Chest tube management per CT surgery
-Eventual resumption of GDMT for ICM with low-dose metoprolol resumed. Farxiga started. Eventual addition of BERNICE/ARB or Entresto. Eventual addition of Aldactone.
-Continue aspirin/Plavix given non-STEMI at presentation
-Hemoglobin A1c 8.3%. needs improved control, appreciate diabetic MATHEMATICIAN mgmt
-Lipids 02/27/2024 TC 158, HDL 41, LDL 72, triglycerides 226. Continue high intensity statin. Consider PCSK9 inhibitor as outpatient if LDL remains suboptimally controlled
-Postop supportive care
d/w CTS
HPI 02/26/24:
Patient is a 53 y/o white male, PMH sig for moderate ischemic cardiomyopathy after late presentation [place] (he refused care at first) and ultimately needed LAD stent (06/2022), prior RCA stenting in 2021. He has been feeling well until Sun 02/24, when he
woke up with chest pain and was intermittent throughout the day. Worse with any activity. Eventually agreed to come to ER and ECG was fine but enzymes showed acute NSTEMI pattern. He is taking aspirin and Plavix. IV and oral nitrates are giving him
a headache. No recent illness or other changes. On insulin and struggles with glucose control. Chest pain free overnight.
Peak HS troponin 642 with peak CK 334/MB 36.
Progress Note - Set Up Operator
Subjective
Date of Service: March 09, 2024
Total Time Spent with Patient (in minutes): Feels well
Objective
Labs:
03/09/24 03:46
03/09/24 03:46
Labs
Hgb 8.4 g/dL (13.0-18.0) L 03/09/24 03:46
Hct 24.7 % (39.0-52.0) L 03/09/24 03:46
Plt Count 171 10^3/uL (130-400) 03/09/24 03:46
PT 18.8 Sec (11.4-14.6) H 03/06/24 12:49
INR 1.56 03/06/24 12:49
APTT 35.9 Sec (23.4-35.0) H 03/06/24 12:49
Sodium 133 mmol/L (135-145) L 03/09/24 03:46
Potassium 4.8 mmol/L (3.5-5.1) 03/09/24 03:46
BUN 30 mg/dl (9-20) H 03/09/24 03:46
Creatinine 1.1 mg/dL (0.7-1.3) 03/09/24 03:46
Glucose 161 mg/dl (70-99) H 03/09/24 03:46
Vital Signs and I&O:
Vital Signs
Temp Pulse Resp BP Pulse Ox
98.5 F 126 20 118/79 97
03/09/24 08:00 03/09/24 10:00 03/09/24 08:00 03/09/24 08:00 03/09/24 08:57
Vital Signs
Temp Pulse Resp BP Pulse Ox
98.5 F 126 20 118/79 97
03/09/24 08:00 03/09/24 10:00 03/09/24 08:00 03/09/24 08:00 03/09/24 08:57
Intake & Output
03/07/24 03/08/24 03/09/24 03/10/24
06:59 06:59 06:59 06:59
Intake Total 2473.8 / 2473.8 3066.5 / 3085.3 1604.1 / 1604.1 83.9 / 83.9
Output Total 2825 / 2825 910 / 970 2340 / 2340 800 / 800
Balance -351.2 / -351.2 2156.5 / 2115.3 -735.9 / -735.9 -716.1 / -716.1
Physical Exam
Physical Exam
Physical Exam
General: no apparent distress, not acutely ill
Neck: supple. no meningeal signs. normal psoterior pharynx
Heart: s1/s2 regular rate and rhythm, no murmur. equal radial pulses.
Lungs: no acute respiratory distress. clear bilaterally
Abdomen: normal bowel sounds. not tender. no CVAT
Neuro: alert and oriented. no focal neurological deficits
Skin: no rash
Psychiatric: well kept. interactive and cooperative
Extremities: no edema. no calf tenderness. negative homans. good distal pulses
--- NOTE | 2024-03-09 10:39 | PTCARENOTE ---
Left A-line and CVP removed per CV PA order; Forman Catheter removed pt DTV at 1630.
[2024-03-09] MEDS: ELIQUIS 5 MG PO ×2 (11:14→20:08)
--- NOTE | 2024-03-09 11:53 | W.PN.INTV ---
Today's Communication / Plan
Recommendations
Amiodarone per cardiology
Daily chest x-ray
Follow H&H
Increase activity as able
Arterial line-hopefully can be DC'd
No additional recommendation
Sign of
Assessment
-
-
Status post coronary artery bypass 03/06/2024
Multivessel coronary artery disease:
Cardiac catheterization 02/26/2024:1: Multivessel obstructive disease involving distal RCA bifurcation disease and the culprit true ostial LAD as described above.
2: Moderate LV systolic dysfunction with normal left regular filling pressures and no significant mitral gravitation.
Postoperative mechanical ventilation
Postoperative anemia
-
Conditions present prior admission:
Hypertension
Hyperlipidemia
Ischemic cardiomyopathy
History of inferior NC status post RCA stent in 2021
Coronary artery disease status post stent to the LAD and RCA in June 2022
Insulin-dependent diabetes
History of nonhealing foot ulcer and osteomyelitis status post great toe amputation in 2019
Nonalcoholic fatty liver disease
Obesity
Assessment and plan:
Postoperative day 3
This morning feeling better. Next
Tachycardia has improved-on amiodarone being transitioned to oral.
Cardiology correspondence reviewed depending on situation may need MOISE cardioversion.
-
Leukocytosis [id number]
Denies any cough or phlegm production.
Chest x-ray 03/09/2024: No acute infiltrates. Chest tube has been discontinued
Continue analgesia with narcotic as needed. Monitor respiratory status closely.
Anemia noted-no evidence of acute bleeding
Follow H&H serially
Hemodynamics -improved, milrinone discontinued this morning.
Renal function is normal
Forman to be discontinued
Electrolytes are balanced
Incentive spirometry
Increase activity as able
Tolerating diet
Head of the bed elevation
Glycemic control per protocol
DVT prophylaxis when safe from the surgical perspective.
Patient transferred to telemetry.
Critical care team will sign off
Subjective Dataa
Subjective Data
Date of Service:
Date of Service: March 09, 2024
Chief Complaint: Vp Outcomes Follow Up (Status post coronary artery bypass)
Subjective:
Feels better today
No new complaints
Off inotropes this morning
Review of Systems
General: Fever (n)
Cardiopulmonary: Dyspnea (none at rest)
GI: Abdominal Pain (n) and Nausea (n)
Neuro: Headache (n)
Objective Data
Data Reviewed
Vital Signs / I&O / Oxygen:
Vital Signs
Temp Pulse Resp BP Pulse Ox
98.9 F 123 20 116/89 98
03/09/24 11:34 03/09/24 11:30 03/09/24 11:34 03/09/24 11:11 03/09/24 11:34
Intake and Output
03/08/24 03/09/24 03/10/24
06:59 06:59 06:59
Intake Total 3066.5 / 3085.3 1604.1 / 1604.1 83.9 / 83.9
Output Total 910 / 970 2340 / 2340 800 / 800
Balance 2156.5 / 2115.3 -735.9 / -735.9 -716.1 / -716.1
SaO2 [P-SIMV] 98
SaO2 98
Nasal Cannula flow liters per 2
minute
Physical Exam
General: Comfortable
HEENT: Normocephalic
Cardiovascular: S1-S2 and Other (Tachycardic)
Respiratory: Clear and Chest Tube (To bulb)
GI: Soft
Neurology: Awake, Alert and Oriented
Skin: Warm
Labs/Micro/Reports
Lab Data
03/09/24 03:46
03/09/24 03:46
--- NOTE | 2024-03-09 12:27 | PTCARENOTE ---
Assessment unchanged; Sinus Tachycardia on monitor and VSS; pt resting comfortably in chair.
[2024-03-09] MEDS: NSS IV (12:36)
[2024-03-09 13:09] LABS: Glucose - Point of Care 181 mg/dl (70-99)
[2024-03-09] MEDS: TYLENOL 1000 MG PO ×2 (13:10→22:40)
--- NOTE | 2024-03-09 16:01 | PTCARENOTE ---
Pt ambulated hallway with RN and ; Sinus Tachycardia on monitor and VSS; assessment unchanged and pt resting comfortably in chair with at bedside.
[2024-03-09 17:47] LABS: Glucose - Point of Care 167 mg/dl (70-99)
[2024-03-09] MEDS: CORDARONE 103 MG IV (20:07)
[2024-03-09] MEDS: CALCIUM CHLORIDE 10% SYRINGE 60 MG IV (20:08)
[2024-03-09] MEDS: TOPROL XL 12.5 MG PO ×2 (20:09→20:12)
--- NOTE | 2024-03-09 21:00 | PTCARENOTE ---
Patient received OOB in chair watching television. Patient A+A+Ox3. No neurological deficits noted. Patient ambulating by self without difficulty. Sternal precautions. Room air. SpO2 98%. Sinus Tachycardia. Heart rate 100-120's. Patient
with no c/o chest pain, pressure or discomfort. Normoactive bowel sounds. Voiding without difficulty. Sternal dressing intact. Chest tube sutures intact. Right groin site intact. Right knee site - Incision intact - Open to air. Right I.J.
Cordis. IV Amiodarone bolus administered and Calcium chloride 1,000mg/50ml IV over 1hr given per PA (Dusty SHEN-C) orders. Patient now resting in bed watching television. Assessment as documented.
[2024-03-09] MEDS: XOPENEX 1.25 MG INHALANT SOLUTION INH (21:11)
[2024-03-09 22:34] LABS: Glucose - Point of Care 146 mg/dl (70-99)
[2024-03-09] MEDS: LANTUS 0.22 UNITS SC (22:40)
[2024-03-09] MEDS: PACERONE 400 MG PO (22:41)
[2024-03-10] VITALS (10 sets, daily range): BP systolic 86–130; BP diastolic 59–86
--- NOTE | 2024-03-10 | PTCARENOTE ---
Patient sleeping without difficulty. No further changes from previous assessment.
--- NOTE | 2024-03-10 03:50 | W.PN.CT ---
Today's Communication / Plan
-
Plan:
-No major issues overnight. Hemodynamically and neurologically stable
-Off Amiodarone and Primacor gtt, off all drips
-Current rhythm is sinus tachycardia @ 103 bpm
-Po Amiodarone increased to 400 TID, resumed low dose BB last night (Toprol XL 12.5 mg po BID)
-Currently on Eliquis and ASA, Plavix d/c'd, for possible DCCV on Monday. May not need Eliquis, intraop MOISE was without LA appendage clot
-BP noted to be soft postop, improving
-Consider weaning off of Primacor
-D/C cordis
-No temporary PW
-Cont. current meds (ASA, Plavix-currently on hold, Amiodarone, Toprol XL if BP permits, Zetia)
-Hgb A1C 8.3, Diabetes management following, on Novolog, Lantus and Farxiga
-F/U left basilar atelectasis on 2-view cxr today
-Monitor hyponatremia, 133. Cont. diuresis if BP Permits. Minimize fluid intake
-Encourage use of IS
-Wean off of O2
-OOB into chair/Ambulate
-Home likely tomorrow, may need repeat echo to assess LVEF off inotropes prior to d/c home. May need LifeVest prior to d/c home
Assessment / Plan
-
Assessment:
S/P CABG X 2 (LEE to LAD, SVG to PDA) by Dr. Cazares, 03/06/24, POD#4
Presented 02/25/2024 with NSTEMI to [facility]
CAD
MVCAD on cath 02/26/24
Late presentation NSTEMI w/prox LAD PCI (07/13/22)
Prior RCA PCI (2021)
Ischemic Cardiomyopathy, EF 35-40%
Chronic systolic HFrEF
HTN
HLD
DM, poorly controlled (A1C 8.3)
Class 1 obesity (BMI 32.4)
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
Peripheral neuropathy
Non alcoholic fatty liver disease (NAFLD).
Chronic LFT elevation
Medication noncompliance
-Acute postop blood loss/Anemia (stable without transfusion)
-Acute postop thrombocytopenia (stable without active bleed)
-Acute postop atelectasis/pleural effusion
-Acute postop hypovolemia with subsequent hypervolemia
-Acute postop atrial tachycardia/flutter; sinus tachycardia
-Acute postop hyponatremia, 133
Discussed patient care with: Cardiology, Nursing, Respiratory Therapy, Pharmacy and Care Team
Subjective
Procedure
S/P CABG X 2 (LEE to LAD, SVG to PDA) by Dr. Cazares, 03/06/24
-
Date of Service: March 10, 2024
Pt c/o mild incisional pain, otherwise feels well
Objective Data
-
PT 18.8 Sec (11.4-14.6) H 03/06/24 12:49
INR 1.56 03/06/24 12:49
APTT 35.9 Sec (23.4-35.0) H 03/06/24 12:49
Vital Signs
Vital Signs
Temp Pulse Resp BP Pulse Ox
98.7 F 96 18 106/70 97
03/09/24 22:30 03/10/24 03:15 03/09/24 22:30 03/09/24 22:41 03/09/24 22:30
CT Intake/Output/Weight
03/09/24 03/09/24 03/10/24
06:59 18:59 06:59
Intake Total 706.0 / 1604.1 163.9 / 493.9 330 / 493.9
Output Total 975 / 2340 1200 / 2000 800 / 2000
Balance -269.0 / -735.9 -1036.1 / -1506.1 -470 / -1506.1
SaO2: 97 (RA)
Physical Exam
-
General: Awake, Oriented and AOx3
Cardiovascular: Regular rate & rhythm, No Murmurs, No Rub and No Gallop
Respiratory: Decreased Breath Sounds
Sternum: Stable
Incision: Clean, Dry, Intact and Dressing Intact
Extremities: Other (+trace edema)
Data Reviewed
-
Lab Results: Results Reviewed
Medications: Active Meds Reviewed
Chest X-Ray: Report Reviewed and Image Reviewed
ECG: Report Reviewed and Image Reviewed
--- NOTE | 2024-03-10 04:30 | PTCARENOTE ---
Patient A+A+Ox3. No neurological deficits noted. Patient ambulating in room and to bathroom by self. Voiding without difficulty. EKG completed. AM lab work collected and sent. Standing scale weight 94.8 kg. No c/o pain or discomfort.
Assessment/Interventions as documented.
[2024-03-10 04:46] LABS: Hematocrit 27.1 % (39.0-52.0); Hemoglobin 9.3 g/dL (13.0-18.0); Mean Corp Hgb Conc. 34.3 g/dL (33.0-37.0); Mean Corpuscular Hgb 30.6 pg (27.0-31.0); Mean Corpuscular Volume 89.1 fL (80.0-94.0); Platelet Count 206 10^3/uL (130-400); Red Blood Cell Count 3.04 10^6/uL (4.70-6.10); Red Cell Dist. Width 12.8 % (11.5-14.5); White Blood Cell Count 10.2 10^3/uL (4.8-10.8)
[2024-03-10] MEDS: VENTOLIN NEBULES 2.5 MG INH (04:53)
[2024-03-10 05:25] LABS: Blood Urea Nitrogen 28 mg/dl (9-20); Calcium 8.5 mg/dl (8.4-10.2); Carbon Dioxide 26 mmol/L (22-30); Chloride 99 mmol/L (98-107); Estimated Creatinine Clearance 112 ml/min; Glucose 122 mg/dl (70-99); Magnesium 2.2 mg/dl (1.6-2.3); Potassium 4.4 mmol/L (3.5-5.1); Sodium 136 mmol/L (135-145); eGFR > 60.00
[2024-03-10] MEDS: TYLENOL PO ×3 (05:25→21:43)
[2024-03-10] MEDS: NOVOLOG FLEXPEN-MODERATE RESISTANCE SC ×2 (07:15→15:12)
[2024-03-10] MEDS: NOVOLOG FLEXPEN 10 UNITS SC ×3 (07:15→16:50)
[2024-03-10 07:18] LABS: Glucose - Point of Care 133 mg/dl (70-99)
--- NOTE | 2024-03-10 07:45 | PTCARENOTE ---
Received pt from retail shift manager RN; pt AAOx3 and resting comfortable in chair; Sinus Tachycardia on monitor and VSS; RIJ Cordis patent; Lung diminished; IS to 1500; positive bowel sounds; pt voiding yellow urine; palpable radial pulses and Doppler
lower extremity pulses; +1 generalized edema noted; all surgical sites C/D/I; see nursing documentation for further details.
[2024-03-10] MEDS: FARXIGA 10 MG PO (08:02)
[2024-03-10] MEDS: LIDOCAINE 4% PATCH TOPICAL (08:03)
[2024-03-10] MEDS: NEURONTIN 100 MG PO ×3 (08:03→23:19)
[2024-03-10] MEDS: PROTONIX 40 MG PO (08:03)
[2024-03-10] MEDS: PACERONE 400 MG PO ×3 (08:03→23:19)
[2024-03-10] MEDS: LOW STRENGTH ASPIRIN 81 MG PO (08:03)
[2024-03-10] MEDS: MAGNESIUM OXIDE 500 MG PO ×2 (08:03→20:43)
[2024-03-10] MEDS: TOPROL XL 12.5 MG PO ×2 (08:04→20:44)
[2024-03-10] MEDS: SENOKOT-S PO ×2 (08:04→20:21)
[2024-03-10] MEDS: BACTROBAN 2% OINTMENT 1 APPLIC NASAL (08:07)
[2024-03-10] MEDS: PLAVIX 75 MG PO (09:03)
[2024-03-10] MEDS: ELIQUIS PO (09:03)
--- NOTE | 2024-03-10 09:08 | W.PN.CARDCBS ---
Today's Communication / Plan
-
Do not need to give oral anticoagulation
Antiplatelet regimen as per CT surgery which could be either aspirin or aspirin and Plavix
Metoprolol 12.5 or 25 mg XL daily dosing as blood pressure tolerates
Amiodarone 200 mg daily x 6 weeks at discharge
Does not need MOISE guided cardioversion
Will follow with you
Guideline based medical therapy for his new cardiomyopathy
Impression / Plan
-
Patient seen and examined
Physical Exam
General: no apparent distress, not acutely ill
Neck: supple. no meningeal signs. normal psoterior pharynx
Heart: s1/s2 regular rate and rhythm, no murmur. equal radial pulses.
Lungs: no acute respiratory distress. clear bilaterally
Abdomen: normal bowel sounds. not tender. no CVAT
Neuro: alert and oriented. no focal neurological deficits
Skin: no rash
Psychiatric: well kept. interactive and cooperative
Extremities: no edema. no calf tenderness. negative homans. good distal pulses
PCP: Marli Mojica MD
CDY: Blane Stewart MD
IMPRESSION:
Presented 02/25/2024 with NSTEMI to [facility]
CAD
MVCAD on cath 02/26/24
Late presentation NSTEMI w/prox LAD PCI (07/13/22)
Prior RCA PCI (2021)
s/p CABG x 2 (LEE to LAD, SVG to RPDA) 03/06/2024
Ischemic Cardiomyopathy, EF 20-25%
Chronic HFrEF
HTN
HLD
DM, poorly controlled
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
Peripheral neuropathy
Non alcoholic fatty liver disease (NAFLD).
Chronic LFT elevation
Medication noncompliance
Cardiac catheterization 02/26/2024: LM: Normal. LAD: Ulcerated 95% ostial stenosis just proximal to previously placed proximal stent. Patent proximal to mid LAD stent. Diagonal branch ostial disease with normal distal flow.: Ramus: Lateral distal
branch 50% stenosis. Left circumflex: Patent. RCA patent mid RCA stent. Ostial proximal RPDA stenosis, diffuse mid 50 to 60% stenosis. Ostial PLV 60% stenosis. LVG: Mild to moderate anterolateral hypokinesis. Mild inferoapical hypokinesis. LV
systolic dysfunction estimated EF 40%
Echo 09/19/23- moderate LV systolic dysfunction, EF 35-40%, mod CLVH, apical DK, inferior/anterior/entire inf septum, mid/ap ant septum and apical lateral segment are HK.
Carotid duplex 02/27/2024: Less than 50% bilateral ICA stenosis
PLAN:
-He presented to [facility] as NSTEMI on 02/25/24
-s/p CABG x 2 (LEE to LAD, SVG to RPDA) 03/06/2024
-History of ischemic cardiomyopathy with preop MOISE EF 25% and postop 30-35% on dobutamine
-His rates have improved with amiodarone and review of available tracings and telemetry suggest sinus tachycardia. It would be helpful to initiate metoprolol XL at low-dose 12.5 or 25 mg daily and can lower amiodarone to 200 mg daily at discharge.
In many ways this would be for atrial fibrillation prophylaxis. I do not feel the need to give him oral anticoagulation so can use what ever antiplatelet regimen you would like postsurgery.
-Eventual resumption of GDMT for ICM with low-dose metoprolol resumed. Farxiga started. Eventual addition of BERNICE/ARB or Entresto. Eventual addition of Aldactone.
-Continue aspirin/Plavix given non-STEMI at presentation
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
Subjective
Date of Service: March 10, 2024
Total Time Spent with Patient (in minutes): Feels about the same
Objective
Labs:
03/10/24 04:22
03/10/24 04:22
Labs
Hgb 9.3 g/dL (13.0-18.0) L 03/10/24 04:22
Hct 27.1 % (39.0-52.0) L 03/10/24 04:22
Plt Count 206 10^3/uL (130-400) D 03/10/24 04:22
PT 18.8 Sec (11.4-14.6) H 03/06/24 12:49
INR 1.56 03/06/24 12:49
APTT 35.9 Sec (23.4-35.0) H 03/06/24 12:49
Sodium 136 mmol/L (135-145) 03/10/24 04:22
Potassium 4.4 mmol/L (3.5-5.1) 03/10/24 04:22
BUN 28 mg/dl (9-20) H 03/10/24 04:22
Creatinine 0.9 mg/dL (0.7-1.3) 03/10/24 04:22
Glucose 122 mg/dl (70-99) H 03/10/24 04:22
Vital Signs and I&O:
Vital Signs
Temp Pulse Resp BP Pulse Ox
98.6 F 106 20 97/59 98
03/10/24 08:00 03/10/24 08:15 03/10/24 08:00 03/10/24 07:49 03/10/24 08:48
Vital Signs
Temp Pulse Resp BP Pulse Ox
98.6 F 106 20 97/59 98
03/10/24 08:00 03/10/24 08:15 03/10/24 08:00 03/10/24 07:49 03/10/24 08:48
Intake & Output
03/08/24 03/09/24 03/10/24 03/11/24
06:59 06:59 06:59 06:59
Intake Total 3066.5 / 3085.3 1604.1 / 1604.1 523.9 / 523.9 40 / 40
Output Total 910 / 970 2340 / 2340 2300 / 2300
Balance 2156.5 / 2115.3 -735.9 / -735.9 -1776.1 / -1776.1 40 / 40
Physical Exam
Physical Exam
�
����Physical Exam
�
���������������������General:��no apparent distress, not acutely ill
�
���������������������������Neck:��supple. no meningeal signs. normal psoterior pharynx
������������������������
���������������������������Heart:��s1/s2 regular rate and rhythm, no murmur. equal radial pulses.
�
��������������������������Lungs: ��no acute respiratory distress. clear bilaterally
�
����������������������Abdomen:�normal bowel sounds. not tender. no CVAT
�
��������������������������Neuro:��alert and oriented. no focal neurological deficits
�
������������������������������Skin: ��no rash
�
�����������������������Psychiatric:�well kept. interactive and cooperative
�
�����������������������Extremities:��no edema. no calf tenderness. negative homans. good distal pulses
�
�
�
��
�
--- NOTE | 2024-03-10 12:57 | PTCARENOTE ---
Assessment unchanged; Sinus tachycardia on monitor and VSS; pt ambulating in hallways.
[2024-03-10 14:39] LABS: Glucose - Point of Care 118 mg/dl (70-99)
[2024-03-10] MEDS: NSS IV (15:12)
[2024-03-10] MEDS: NOVOLOG FLEXPEN-MODERATE RESISTANCE 1 UNITS SC (16:51)
[2024-03-10 16:55] LABS: Glucose - Point of Care 170 mg/dl (70-99)
--- NOTE | 2024-03-10 20:15 | PTCARENOTE ---
Patient received from previous shift ambulating ad mian, AAO X 3, denies pain. ST via cm, SaO2 @ 98% on RA. RIJ Cordis w/kvo infusing. All procedural sites stable. Patient updated to plan of care for the evening, in agreement. See work list for full
assessment and interventions performed.
[2024-03-10 21:16] LABS: Glucose - Point of Care 131 mg/dl (70-99)
[2024-03-10] MEDS: CALCIUM GLUCONATE 100 IV (21:20)
--- NOTE | 2024-03-10 23:15 | PTCARENOTE ---
Report from ZACH Guevara. Pt assessed and VS done. See flowsheet. Pt alert, oriented x 4. Speech clear. Equal extremity strength x 4. Pt on room air. Sats 100%. Decreased bibasilarly. CDB andf IS encouraged. IS Peak 2000 mls. Audible heart tones. Pt
in ST-SR. See flowsheets for pulse and wound assessments. Belly soft, obese, nontender. Normoactive bs x 4. Voids clear, yellow urine into urinal. Up ad mian. Scheduled meds given. Refused Tylenol. Denies pain. Ongoing plan of care.
[2024-03-10] MEDS: LANTUS 0.22 UNITS SC (23:18)
[2024-03-11] VITALS (10 sets, daily range): BP systolic 83–100; BP diastolic 57–71; PULSE 98; O2SAT 100; BMI 31.7
--- NOTE | 2024-03-11 02:26 | PTCARENOTE ---
Pt up to recliner chair per request. VS done. No c/o pain. Pt in SR. Sats on room air 97%. BP 100/67. Denies dizziness, lightheadedness with standing.
--- NOTE | 2024-03-11 03:52 | W.PN.CT ---
Addendum entered and electronically signed by Katie Hidalgo PA-C 03/11/24 12:37:
additional diagnosis:
-post cardiotomy shock requiring inotropes, resolved
Addendum entered and electronically signed by Maxwell Cazares MD 03/11/24 12:11:
I saw and examined the patient.
The PA's note was reviewed and I agree with the note.
Comment:
Looks good today
OK for D/C home
Eval for lifevest given reduced LVEF
Original Note:
Today's Communication / Plan
-
Plan:
-No major issues overnight. Hemodynamically and neurologically stable
-Off Amiodarone and Primacor gtt, off all drips
-Current rhythm is sinus @ 98 bpm. Has been in sinus tachycardia and atrial tachycardia postop
-BP has been soft postop, tolerating Toprol XL 12.5 mg po BID, currently on Amiodarone 400 TID given postop tachycardia, will send home on 200 mg TID per Cardiology
-Will discuss repeat TTE off inotropic support to help discern need for LifeVest prior to discharge home. Pt's intraop MOISE showed EF of 20-25%, repeat postop on Primacor was 31%
-No temporary PW
-Cont. current meds (ASA, Plavix, Amiodarone, Toprol XL, Zetia)
-Hgb A1C 8.3, Diabetes management following, on Novolog, Lantus and Farxiga
-Hyponatremia has resolved, 135 today. Minimize fluid intake
-Encourage use of IS
-OOB into chair/Ambulate
-Home today
Assessment / Plan
-
Assessment:
S/P CABG X 2 (LEE to LAD, SVG to PDA) by Dr. Cazares, 03/06/24, POD#5
Presented 02/25/2024 with NSTEMI to [facility]
CAD
MVCAD on cath 02/26/24
Late presentation NSTEMI w/prox LAD PCI (07/13/22)
Prior RCA PCI (2021)
Ischemic Cardiomyopathy, EF 35-40%
Chronic systolic HFrEF
HTN
HLD
DM, poorly controlled (A1C 8.3)
Class 1 obesity (BMI 32.4)
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
Peripheral neuropathy
Non alcoholic fatty liver disease (NAFLD).
Chronic LFT elevation
Medication noncompliance
-Acute postop blood loss/Anemia (stable without transfusion)
-Acute postop thrombocytopenia (stable without active bleed)
-Acute postop atelectasis/pleural effusion
-Acute postop hypovolemia with subsequent hypervolemia
-Acute postop atrial tachycardia/flutter; sinus tachycardia
-Acute postop hyponatremia, 133
Discussed patient care with: Cardiology, Nursing, Respiratory Therapy, Pharmacy and Care Team
Subjective
Procedure
S/P CABG X 2 (LEE to LAD, SVG to PDA) by Dr. Cazares, 03/06/24
-
Date of Service: March 11, 2024
Pt c/o mild incisional pain, otherwise feels well. Ambulating halls without difficulty
Objective Data
-
PT 18.8 Sec (11.4-14.6) H 03/06/24 12:49
INR 1.56 03/06/24 12:49
APTT 35.9 Sec (23.4-35.0) H 03/06/24 12:49
Vital Signs
Vital Signs
Temp Pulse Resp BP Pulse Ox
98 F 100 16 100/67 97
03/11/24 01:56 03/11/24 01:56 03/11/24 01:56 03/11/24 01:56 03/11/24 01:56
CT Intake/Output/Weight
03/10/24 03/10/24 03/11/24
06:59 18:59 06:59
Intake Total 360 / 523.9 40 / 110 70 / 110
Output Total 1100 / 2300 800 / 1650 850 / 1650
Balance -740 / -1776.1 -760 / -1540 -780 / -1540
SaO2: 97 (RA)
Physical Exam
-
General: Awake, Oriented and AOx3
Cardiovascular: Regular rate & rhythm, No Murmurs and No Gallop
Respiratory: Decreased Breath Sounds (at left base, mild crackles, otherwise clear)
Sternum: Stable
Incision: Clean, Dry, Intact and Dressing Intact
Extremities: No Edema
Data Reviewed
-
Lab Results: Results Reviewed
Medications: Active Meds Reviewed
Chest X-Ray: Report Reviewed and Image Reviewed
ECG: Report Reviewed and Image Reviewed
[2024-03-11] MEDS: TYLENOL PO (04:36)
[2024-03-11 04:59] LABS: Blood Urea Nitrogen 24 mg/dl (9-20); Calcium 8.5 mg/dl (8.4-10.2); Carbon Dioxide 26 mmol/L (22-30); Chloride 99 mmol/L (98-107); Estimated Creatinine Clearance 111 ml/min; Glucose 128 mg/dl (70-99); Magnesium 2.2 mg/dl (1.6-2.3); Potassium 4.1 mmol/L (3.5-5.1); Sodium 135 mmol/L (135-145); eGFR > 60.00
[2024-03-11 05:05] LABS: Hemoglobin 9.2 g/dL (13.0-18.0); Mean Corp Hgb Conc. 34.1 g/dL (33.0-37.0); Mean Corpuscular Hgb 29.6 pg (27.0-31.0); Mean Corpuscular Volume 86.8 fL (80.0-94.0); Platelet Count 257 10^3/uL (130-400); Red Blood Cell Count 3.11 10^6/uL (4.70-6.10); Red Cell Dist. Width 12.9 % (11.5-14.5); White Blood Cell Count 9.9 10^3/uL (4.8-10.8)
[2024-03-11] MEDS: CALCIUM GLUCONATE 100 IV (06:21)
--- NOTE | 2024-03-11 07:37 | PTCARENOTE ---
Received pt from night monitor RN; pt AAOx3 and resting comfortably in chair; NSR on monitor and VSS; Lungs diminished; IS to 1500; positive bowel sounds and pt voiding yellow urine; palpable pulses throughout; trace generalized edema noted; all
surgical sites C/D/I; see nursing documentation for further details.
[2024-03-11 07:59] LABS: Glucose - Point of Care 124 mg/dl (70-99)
--- NOTE | 2024-03-11 08:04 | PN.DE.MGMTRT ---
Insulin Management
- -
03/11/2024: Diabetes Management F/U:
Patient presented to the ED on 02/25 with chest pain, NSTEMI, known to diabetes team from previous admission,
PMH: HTN, ICM, CAD s/p PCI, HLD, NAFLD, Chronic LFT elevation, T2DM. On insulin and struggles with glucose control. A1C 8.3%, Cr 1.0, eGFR >60. Prior to admission was taking Farxiga 25 mg daily, metformin 500 mg BID with Lantus 18 units @ HS and
NovoLog 5 units AC. He states he has had diabetes ~ 5 years and his primary doctor cares for his diabetes.
Pt awake, A/O x3, walking about in room, able to discuss diabetes mgt.
POD # 5 s/p CABG x 2. Doing well. Transitioned off glycemic protocol to SQ insulin.
Glucose stable and in range, premeal 04/05 to 170, FBG 128 (V) this AM.
Will make no changes to current regimen: Lantus 22 units, AC NovoLog 10 units, Farxiga 10 mg, and low corrective with meals
Cont current regimen at discharge. Will follow.
Diabetes History
- -
Type of Diabetes: 2 requiring insulin
Pre-Admission Diabetes Regimen
03/11/24
04:20
Creatinine 0.9
Lab Results
Hemoglobin A1c 8.3 % (4.0-5.6) H 02/27/24 06:17
Insulin Pump Settings
IP Diabetes Regimen
03/10/24 03/10/24 03/10/24
14:36 16:50 21:14
Glucose
POC Glucose 118 H 170 H 131 H
03/11/24 03/11/24
04:20 07:57
Glucose 128 H
POC Glucose 124 H
Meal type: Dinner
Meal type: Breakfast
Amount consumed: 100%
Amount consumed: 100%
Patient Education
[2024-03-11] MEDS: NOVOLOG FLEXPEN 10 UNITS SC (08:10)
[2024-03-11] MEDS: NOVOLOG FLEXPEN-MODERATE RESISTANCE SC ×2 (08:10→12:12)
[2024-03-11] MEDS: NEURONTIN 100 MG PO (08:10)
[2024-03-11] MEDS: PLAVIX 75 MG PO (08:11)
[2024-03-11] MEDS: PACERONE 400 MG PO (08:11)
[2024-03-11] MEDS: LOW STRENGTH ASPIRIN 81 MG PO (08:11)
[2024-03-11] MEDS: PROTONIX 40 MG PO (08:11)
[2024-03-11] MEDS: MAGNESIUM OXIDE 500 MG PO (08:11)
[2024-03-11] MEDS: LIDOCAINE 4% PATCH TOPICAL (08:11)
[2024-03-11] MEDS: FARXIGA 10 MG PO (08:11)
[2024-03-11] MEDS: SENOKOT-S PO (08:12)
[2024-03-11] MEDS: TOPROL XL 12.5 MG PO (09:10)
--- NOTE | 2024-03-11 09:50 | W.DCSUMMARY ---
Addendum entered and electronically signed by Katie Hidalgo PA-C 03/12/24 13:27:
CDI Query:
STEMI findings on EKG 03/04 are a continuation of the original NSTEMI
Addendum entered and electronically signed by JOSEPH Tam 03/11/24 18:04:
Patient was not discharged with a lifevest after a discussion with cardiology.
Original Note:
Discharge Summary
Discharge Data
Date of Admission: 02/26/24
Date of Discharge: 03/11/24
Total time spent discharging patient (in min): 40
-
Pending Results: No
Hospital Course
Primary care physician:
Dr. Marli Mojica
Outpatient rocket engine component mechanic:
Dr. Stewart
Inpatient consultants:
DCA,grand jury deputy sheriff, Anesthesia, CT surgery, Diabetes management air analysis technician
Procedures:
1. CABG x 2 (JOSE to LAD and GSV to RPDA)
Primary Diagnosis:
1. Unstable Angina and Non-ST elevation Myocardial infarction
Secondary Diagnoses:
1. Multivessel coronary artery disease with history of drug-eluting stent in 2021
2. Hypertension
3. Hyperlipidemia
4. Insulin-dependent diabetes mellitus
5. Ischemic cardiomyopathy
6. History of nonhealing foot ulcer status post right greater toe amputation in 2019
HPI: 53-year-old male that was brought in electively for a left heart cath due to unstable angina ruled in for a small NSTEMI was found to have multivessel disease and was taken to the CV OR by Dr. Cazares on 03/06.
Hospital course: Patient was admitted on 03/27 for a left heart cath. Left heart cath revealed multivessel disease and he was also a Plavix washout. On 03/06 patient received a CABG x [address] Cazares. Return to the CVICU on Levophed, dobutamine,
Precedex, and insulin infusions. He had increased urine output and was given 1.5 L of lactated Ringer's. Precedex was weaned off and patient was extubated by 5 PM. On 03/07 postoperative day #1 patient was on dobutamine and D lined. He received
an additional 500 mL of lactated Ringer's. An echocardiogram which performed which showed a trace pericardial effusion. Milrinone was then started and dobutamine was weaned off due to increased tachycardia. Forman catheter and arterial line was
replaced. On 03/08 postoperative day #2 milrinone was weaned to 0.125. Amiodarone bolus and infusion was started for possible atrial tachycardia. On 03/09 postoperative day #3 milrinone was turned off and patient was D lined. Eliquis was started
for possible A-fib and cardioversion per cardiology. Forman catheter was removed. On 03/10 postoperative day #4, repeat EKG showed sinus tachycardia so Eliquis was discontinued. Beta-blockers and amiodarone were continued. 2 view chest x-ray was
stable. On 03/11 postoperative day #5 Cordis catheter was removed. He tolerated metoprolol 12.5 mg twice daily. He will be discharged on amiodarone 200 mg daily per cardiology.
Home medication changes:
See below
Discharge Plan
-
Patient Disposition: Home (Routine Discharge)
Discharge Diagnosis/Procedures: CABG X 2 (LEE to LAD, SVG to PDA) by Dr. Cazares, 03/06/24
Condition: Fair
Diet: Low Cholesterol, Diabetic, Carb Controlled and Restrict fluids to 64 oz
Activity: No strenuous activity
Driving Restrictions: Not until seen by your Dr
Bathing Restrictions: OK to Shower
Other Services: Cardiac Rehab
Specialty Instructions: Weigh Daily- Call MD for wt gain/loss 3 lbs overnight/5 lbs in 1 week
Activity Restrictions/Additional Instructions:
ACTIVITY:
-No strenuous activity: no heavy lifting, pushing, pulling anything over 15 pounds for one month
-continue to use stairs as tolerated
DRIVING RESTRICTIONS:
-No driving for one month or until approved by your surgeon
WOUND CARE:
-Shower daily. Use soap & water.
-No lotions, creams or powders on incision area.
DIET:
-continue a low fat/low cholesterol diet.
-IF you are diabetic, continue carb controlled diet.
CARDIAC REHAB:
-Please make appointment to start in 5-6 weeks with your local hospital program. (See Cardiac Rehabilitation Discharge Booklet).
SPECIALTY INSTRUCTIONS:
-Weigh yourself daily. Call your physician for any weight gain/loss of 3 lbs overnight or 5 lbs in one week.
-REPORT any clicking noise or uneven appearance of your sternum to your surgeon immediately.
-If you smoke, you are instructed to quit. The [place] smoking hotline phone number is [phone]
Instructions: Recovery after coronary artery bypass graft surgery, Postop Open Heart Surgery Exercises, Coronary artery bypass graft surgery
Stand Alone Forms: DC Instructions- Cath/EP Lab
Referrals:
Blane Stewart MD [Active] - 04/26/24 11:00 am
Maxwell Cazares MD [Active] - 04/02/24 2:00 pm
Marli Mojica DO [Non-Admitting Privileges] - in one to two months
Additional Discharge Medication Instructions: Please note that your insulin doses has changed. Please follow up with your primary care doctor about your diabetes.
Prescriptions:
New
acetaminophen 325 mg Tablet
650 mg PO Q4HPRN PRN (Reason: mild pain,headache,temp >101F ) Qty: 0 0RF
amiodarone 200 mg Tablet
200 mg PO DAILY 60 Days Qty: 60 0RF
metoprolol succinate 25 mg Tablet Extended Release 24 Hr
12.5 mg PO BID Qty: 30 0RF
pantoprazole 40 mg Tablet,Delayed Release (Dr/Ec)
40 mg PO DAILY Qty: 90 1RF
gabapentin 100 mg Capsule
100 mg PO TID Qty: 30 0RF
insulin aspart U-100 100 unit/mL (3 mL) Insulin Pen
10 unit SC AC Qty: 15 0RF
Continued
aspirin 81 mg Tablet,Delayed Release (Dr/Ec)
81 mg PO DAILY
(DME) pen needle, diabetic [BD Ultra-Fine Irene Pen Needle] 32 gauge x 5/32' Needle
Qty: 200 0RF
Rx Instructions:
As Directed
metformin 500 mg Tablet
500 mg PO BID Qty: 60 1RF
clopidogrel 75 mg Tablet
75 mg PO DAILY
empagliflozin 25 mg Tablet
25 mg PO DAILY
rosuvastatin 40 mg Tablet
40 mg PO QPM Qty: 0 0RF
Changed
insulin glargine [Lantus Solostar U-100 Insulin] 100 unit/mL (3 mL) insulin pen
22 unit SC HS Qty: 0 0RF
Discontinued
nitroglycerin 0.4 mg Tablet, Sublingual
0.4 mg SUBLINGUAL Q5M PRN (Reason: chest pain)
metoprolol succinate 25 mg Tablet Extended Release 24 Hr
25 mg PO DAILY
lisinopril 2.5 mg Tablet
2.5 mg PO DAILY
insulin aspart U-100 [Novolog FlexPen U-100 Insulin] 100 unit/mL (3 mL) Insulin Pen
5 unit SC AC Qty: 5 0RF
spironolactone 25 mg Tablet
25 mg PO DAILY
Discharge Orders:
Discharge Patient (As Directed); Ordered 03/11/24
Ordered By: Anais Olmos
Care Plan Goals
Care Plan Goals:
Problem: Readiness for enhanced knowledge related to diagnosis and treatment plan
Goal: Understand your diagnosis and treatment plan needs, including medications if applicable.
Instructions: Know your diagnosis, underlying causes and treatment plan options, including medications if applicable. Consult with your health care team to learn about your diagnosis and treatment plan, including medications if applicable.
Discharge Date and Time
Discharge Date/Time: 03/11/24 14:08
Print Language: WALLISIAN
--- NOTE | 2024-03-11 10:47 | CM ---
Reviewed chart. Met with Mr. Morley to review discharge plans. He states he is feeling well and maybe able to go home soon. He ambulated 450 feet today and also did the stairs. We reviewed a home visit by the Cardiothoracic Transitional Care
Nurse. He is agreeable to a home visit. He states his spouse will be home to assist in his care if needed. Prior to admission he reside with his spouse in a three story hoe with four steps to enter. He has a full flight of stairs to get to
bedroom/full bathroom. He does not have any DME in the home. He has a prescription plan. Medical work-up in progress. The discharge plan is to return home with his spouse and a home visit by the Cardiothoracic Transitional Care Nurse when
medically stable.
--- NOTE | 2024-03-11 11:36 | W.PN.CARDCBS ---
Addendum entered and electronically signed by Bernardo Pelletier MD 03/11/24 12:23:
I saw and examined the patient.
The Social Work Associate's note was reviewed and I agree with the note.
Comment:
GEN: No distress, awake, Ox3
HEENT: supple, anicteric, mmm
LUNGS: CTA, no wheezes/rales
CV: Reg, S1/S2, 1/6 syst LSB, no gallop
ABD: soft, BS+, NT/ND
EXT: No edema
NEURO: Gross non-focal
SKIN: sternotomy
Plan:
Overall doing well. Remains in sinus rhythm.
Ejection fraction 31% by echo. Continue Toprol, Farxiga, and Crestor.
Hopefully as outpatient could start afterload reducing agents with borderline blood pressure. Consider Entresto as outpatient.
Continue aspirin and Plavix.
Original Note:
Today's Communication / Plan
-
Continue low-dose Toprol, Farxiga, Rosuvastatin
Reduce amiodarone to 200 mg daily at discharge
Continue aspirin and Plavix for 6 months due to NSTEMI
Out pt cardiology follow up arranged
Impression / Plan
-
PCP: Marli Mojica MD
CDY: Blane Stewart MD
IMPRESSION:
Presented 02/25/2024 with NSTEMI to [facility]
CAD
MVCAD on cath 02/26/24
Late presentation NSTEMI w/prox LAD PCI (07/13/22)
Prior RCA PCI (2021)
s/p CABG x 2 (LEE to LAD, SVG to RPDA) 03/06/2024
Ischemic Cardiomyopathy, EF 20-25%
Chronic HFrEF
HTN
HLD
DM, poorly controlled
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
Peripheral neuropathy
Non alcoholic fatty liver disease (NAFLD).
Chronic LFT elevation
Medication noncompliance
Cardiac catheterization 02/26/2024: LM: Normal. LAD: Ulcerated 95% ostial stenosis just proximal to previously placed proximal stent. Patent proximal to mid LAD stent. Diagonal branch ostial disease with normal distal flow.: Ramus: Lateral distal
branch 50% stenosis. Left circumflex: Patent. RCA patent mid RCA stent. Ostial proximal RPDA stenosis, diffuse mid 50 to 60% stenosis. Ostial PLV 60% stenosis. LVG: Mild to moderate anterolateral hypokinesis. Mild inferoapical hypokinesis. LV
systolic dysfunction estimated EF 40%
Echo 03/07/2024: EF 31%, moderate reduced LV systolic function. Akinesis of the apex, mid to distal anteroseptal wall. Moderate global hypokinesis. PAP 29 mmHg. Trivial pericardial effusion along the right atrium
Echo 09/19/23- moderate LV systolic dysfunction, EF 35-40%, mod CLVH, apical DK, inferior/anterior/entire inf septum, mid/ap ant septum and apical lateral segment are HK.
Carotid duplex 02/27/2024: Less than 50% bilateral ICA stenosis
PLAN:
-He presented to [facility] as NSTEMI on 02/25/24
-s/p CABG x 2 (LEE to LAD, SVG to RPDA) 03/06/2024
-History of ischemic cardiomyopathy with preop MOISE EF 25% and postop 30-35% on dobutamine. Repeat echo 03/07/2024 EF 31%
-Postop noted to have runs of sinus tachycardia versus atrial tachycardia. Initiated on amiodarone. Review of telemetry shows no further arrhythmia with improvement of heart rates. QTc stable at 477 ms on EKG 03/11/2024. D/c home on Amiodarone
200 mg daily.
-No need for anticoagulation at this time.
-Patient continues to be hypotensive. Unfortunately this prevents initiation of GDMT for ICM. Continue low dose metoprolol XL at low-dose 12.5 mg BID and Farxiga.
-If BP improves as outpt consider initiation of BERNICE/ARB/Entresto and/or Aldactone.
-Continue aspirin/Plavix given non-STEMI at presentation
-Lipids 02/27/2024 TC 158, HDL 41, LDL 72, triglycerides 226. Continue high intensity statin. Consider PCSK9 inhibitor as outpatient if LDL remains suboptimally controlled
Anticipate discharge today. Outpatient cardiology follow-up has been arranged. Patient would benefit from cardiac rehab
Progress Note - Barytes Grinder
Subjective
Date of Service: March 11, 2024
Patient seen and examined. Patient walking around room and unit without concerning cardiac symptoms including chest pain, shortness of breath, dizziness or lightheadedness.
Objective
Labs:
03/11/24 04:20
03/11/24 04:20
Labs
Hgb 9.2 g/dL (13.0-18.0) L 03/11/24 04:20
Hct 27.0 % (39.0-52.0) L 03/11/24 04:20
Plt Count 257 10^3/uL (130-400) D 03/11/24 04:20
PT 18.8 Sec (11.4-14.6) H 03/06/24 12:49
INR 1.56 03/06/24 12:49
APTT 35.9 Sec (23.4-35.0) H 03/06/24 12:49
Sodium 135 mmol/L (135-145) 03/11/24 04:20
Potassium 4.1 mmol/L (3.5-5.1) 03/11/24 04:20
BUN 24 mg/dl (9-20) H 03/11/24 04:20
Creatinine 0.9 mg/dL (0.7-1.3) 03/11/24 04:20
Glucose 128 mg/dl (70-99) H 03/11/24 04:20
Vital Signs and I&O:
Vital Signs
Temp Pulse Resp BP Pulse Ox
98.4 F 88 20 98/71 98
03/11/24 08:00 03/11/24 11:30 03/11/24 08:00 03/11/24 10:02 03/11/24 08:49
Vital Signs
Temp Pulse Resp BP Pulse Ox
98.4 F 88 20 98/71 98
03/11/24 08:00 03/11/24 11:30 03/11/24 08:00 03/11/24 10:02 03/11/24 08:49
Intake & Output
03/09/24 03/10/24 03/11/24 03/12/24
06:59 06:59 06:59 06:59
Intake Total 1604.1 / 1604.1 523.9 / 523.9 110 / 110 520 / 520
Output Total 2340 / 2340 2300 / 2300 1650 / 1650 600 / 600
Balance -735.9 / -735.9 -1776.1 / -1776.1 -1540 / -1540 -80 / -80
Physical Exam
Physical Exam
GEN: No distress, awake, Ox3
HEENT: supple, anicteric, mmm
LUNGS: CTA, no wheezes/rales
CV: Reg, S1/S2, no murmur, rub or gallop
Chest: Sternotomy incision dressing clean dry and intact.
ABD: soft, BS+, NT/ND
EXT: No edema, clubbing or cyanosis, right SVG harvest site with flako, clean dry intact without hematoma or sign of infection
NEURO: Gross non-focal
SKIN: No rash, warm, dry, pink
��
�
--- NOTE | 2024-03-11 12:00 | PTCARENOTE ---
Agree with assessment from previous RN. Pt ambulating independently in the room. VSS. Anticipating discharge orders.
[2024-03-11] MEDS: NOVOLOG FLEXPEN SC (12:12)
[2024-03-11] MEDS: NSS IV (12:12)
--- NOTE | 2024-03-11 12:13 | PN.CDI ---
CDI
- -
CDI:
Physician Documentation Request
Admit Date: 02/26/24 13:35
Dear Doctor Sage/KASEY,
Please review the following and provide your response in the progress notes.
Current documentation includes a diagnosis of hypotension.
Clinical Indicators:
Pt admitted with NSTEMI /CABG done 03/06
Cardiology progress note 03/07, ' -On low-dose dobutamine with Levophed weaned off with borderline hemodynamics; may need to increase dobutamine to allow for heart failure optimization and diuresis. Monitor blood pressure/heart rate trends.'
Bacteriologist Pharmaceutical Progress note 03/07, ' Continue dobutamine/milrinone hopefully can be weaned off in the next 24 hours Monitor sinus tachycardia...'
Cardiothoracic note 03/08,' 2300 Increased tachycardia overnight from 135 to 153; stopped LR infusion. [address] Cook, plan to trial increase milrinone to 0.3 if blood pressure can tolerate.�0225 Blood pressure unable to tolerate
back to 0.25 and urine out diminished.Current drips: Milrinone �Received 500ml bolus for tachycardia/hypotension @ 1830�...'
Cardiothoracic note 03/09, ' Milrinone off, looks a lot better, janine shah later, get another mixed venous to see response off milrinione. Continue amio per Cardiology. ..-BP noted to be soft postop ...'
Patient care note 03/07 @ 1851, ' 500 ml LR bolus administered ...'
Pt care note 03/08 @ 2044, ' ...Milrinone gtt 0.125 mcq/kg/min (3.8 ml/hr)..'
03/08 Pt care note @ 2345, ' Hypotensive. Left radial arterial line and cuff pressure lower..Calcium chloride 10% syringe 1,000 mg IV Now administered per PA order....'
03/06/24
14:00 03/06/24
17:07 03/07/24
06:00
Blood pressure 79/61 80/59 66/50
03/07/24
07:00 03/07/24
07:01 03/07/24
07:43
Blood pressure 82/64 80/66 84/68
03/07/24
09:00 03/08/24
01:00 03/08/24
01:56
Blood pressure 87/77 89/58 87/59
03/08/24
10:00 03/08/24
22:55 03/08/24
23:00
Blood pressure 86/65 87/59
MAP (H-Txmw-Dcbdvbf Monitor) 59
03/08/24
23:00 03/08/24
23:07 03/09/24
00:00
Blood pressure 86/60
MAP (G-Grtc-Fwchyje Monitor) 54 58
03/09/24
00:15 03/09/24
00:45 03/09/24
01:00
MAP (X-Nrtd-Yuupbqt Monitor) 55 58 53
03/09/24
01:15 03/09/24
15:35
Blood pressure 81/58
MAP (C-Uydh-Hiqqxkw Monitor) 57
Please clarify which of the following is the most likely etiology of the above symptoms and treatment rendered:
Cardiogenic shock
Hypotension only
Other
Use of terms such as suspected, likely, concern for, or probable (associated with a specific diagnosis that is being evaluated, monitored, or treated as if it exists) are acceptable and can be coded in the inpatient setting, when documented at the
time of discharge.
Thank you,
Michelle Schilling RN
CDI Specialist
[place] [facility]
Please use your independent medical judgment in providing your response.
[2024-03-11] MEDS: CRESTOR 40 MG PO (12:52)
--- NOTE | 2024-03-11 14:00 | PTCARENOTE ---
Discharge order received. Right IJ cordis d/c. Sternal dressing d/c. Pt showered and tolerated. Reviewed discharge instructions and medications and pt in agreement. Wheeled out to car.
--- NOTE | 2024-03-12 12:58 | PN.CDI ---
CDI
- -
CDI:
Physician Documentation Request
Admit Date: 02/26/24 13:35
Dear Doctor Sage/KASEY,
Please review the following and provide your response in the progress notes.
Clinical Indicators:
Pt admitted with NSTEMI /CABG done 03/06
Update note 03/04, ' Pt c/o 12/05 substernal chest pain, pain resolved after SL NTG x 2 and vomiting EKG showed anterolateral STEMI Pt currently on Heparin gtt awaiting CABG on Monday03/06/24 after Plavix washoutwill cont. to monitor and consider
NTG paste or gtt if further chest pain ...'
Please further specify the EKG findings above:
STEMI a Valid diagnosis
No STEMI findings are a continuation of the original NSTEMI
Other ( Please specify)
Use of terms such as suspected, likely, concern for, or probable (associated with a specific diagnosis that is being evaluated, monitored, or treated as if it exists) are acceptable and can be coded in the inpatient setting, when documented at the
time of discharge.
Thank you,
Michelle Schilling RN
CDI Specialist
[place] [facility]
Please use your independent medical judgment in providing your response.
== END 2024-03-11 14:08 | disposition home or self-care (01) | DRG 233 ==
LOC: CVICU 13:35
PROVIDERS: Anesthesiology; Clinical Nurse Specialist Acute Care; Internal Medicine Interventional Cardiology; Nurse Practitioner; Nurse Practitioner Primary Care; Physician Assistant; Physician Assistant Medical; ADMITTING PHYSICIAN Internal Medicine Interventional Cardiology; ATTENDING PHYSICIAN Thoracic Surgery (Cardiothoracic Vascular Surgery); CONSULT PHYSICIAN Internal Medicine Critical Care Medicine; CONSULT PHYSICIAN Thoracic Surgery (Cardiothoracic Vascular Surgery)
PROC: B2111ZZ Fluoroscopy of Multiple Coronary Arteries using Low Osmolar Contrast (ICD-10-PCS; 2024-02-26)
PROC: 4A023N7 Measurement of Cardiac Sampling and Pressure, Left Heart, Percutaneous Approach (ICD-10-PCS; 2024-02-26)
PROC: B2151ZZ Fluoroscopy of Left Heart using Low Osmolar Contrast (ICD-10-PCS; 2024-02-26)
PROC: 021009W Bypass Coronary Artery, One Artery from Aorta with Autologous Venous Tissue, Open Approach (ICD-10-PCS; 2024-03-06)
PROC: B24BZZ4 Ultrasonography of Heart with Aorta, Transesophageal (ICD-10-PCS; 2024-03-06)
PROC: 02100ZC Bypass Coronary Artery, One Artery from Thoracic Artery, Open Approach (ICD-10-PCS; 2024-03-06)
PROC: 06BP4ZZ Excision of Right Saphenous Vein, Percutaneous Endoscopic Approach (ICD-10-PCS; 2024-03-06)
PROC: 5A1221Z Performance of Cardiac Output, Continuous (ICD-10-PCS; 2024-03-06)
PROC: 03HY32Z Insertion of Monitoring Device into Upper Artery, Percutaneous Approach (ICD-10-PCS; 2024-03-07)
DX: I21.4 Non-ST elevation (NSTEMI) myocardial infarction (principal); T81.11XA Postprocedural cardiogenic shock, initial encounter; I47.19 Other supraventricular tachycardia; I50.22 Chronic systolic (congestive) heart failure; J98.11 Atelectasis; E87.1 Hypo-osmolality and hyponatremia; D62 Acute posthemorrhagic anemia; I48.3 Typical atrial flutter; I25.10 Atherosclerotic heart disease of native coronary artery without angina pectoris; I11.0 Hypertensive heart disease with heart failure; E78.5 Hyperlipidemia, unspecified; E11.42 Type 2 diabetes mellitus with diabetic polyneuropathy; I25.5 Ischemic cardiomyopathy; L97.509 Non-pressure chronic ulcer of other part of unspecified foot with unspecified severity; K76.0 Fatty (change of) liver, not elsewhere classified; I48.91 Unspecified atrial fibrillation; Y83.8 Other surgical procedures as the cause of abnormal reaction of the patient, or of later complication, without mention of misadventure at the time of the procedure; D69.59 Other secondary thrombocytopenia; E86.1 Hypovolemia; E11.65 Type 2 diabetes mellitus with hyperglycemia; E66.811 Obesity, class 1; Z68.32 Body mass index [BMI] 32.0-32.9, adult; Z91.148 Patient's other noncompliance with medication regimen for other reason; Z95.5 Presence of coronary angioplasty implant and graft; Z89.411 Acquired absence of right great toe; I25.2 Old myocardial infarction; Z79.82 Long term (current) use of aspirin; Z79.4 Long term (current) use of insulin; Z79.02 Long term (current) use of antithrombotics/antiplatelets; Z91.040 Latex allergy status
CPT/HCPCS: 93308; 71045; 71046; 71250; 80048; 80053; 80061; 81003; 81015; 82248; 82330; 82565; 82805; 82810; 82947; 82962; 83036; 83690; 83735; 84132; 84302; 84520; 85014; 85018; 85027; 85049; 85347; 85610; 85730; 86850; 86900; 86901; 86920; 87070; 87086; 93005; 93312; 93320; 93325; 93458; 93880; 94002; 94640; C1894; J2260; P9045; P9047; Q9950; Q9967

== ENCOUNTER → 2024-03-21 10:32 | Outpatient (REF) | payer OTHER, SELFPAY | LOC: RAD 10:32 | PROVIDERS: ATTENDING PHYSICIAN Thoracic Surgery (Cardiothoracic Vascular Surgery); FAMILY PHYSICIAN Family Medicine | DX: Z95.1 Presence of aortocoronary bypass graft (principal); R06.02 Shortness of breath | CPT/HCPCS: 71046 ==